=== PATIENT | male | born 1940 | race Caucasian/White ===

== ENCOUNTER 2020-08-09 15:16 | Inpatient (IN) | payer MEDICARE, BC, SELFPAY ==
[2020-08-09 15:30] VITALS: BMI 33.0
--- NOTE | 2020-08-09 15:42 | ART_ITS ---
Reason For Study: Ulcer Procedure A bilateral lower extremity continuous wave Doppler with analog waveform analysis,segmental pressures,and ankle brachial indexes without exercise. Left Segmental Pressures Left brachial= 137mmHg. Left posterior tibial artery = 183mmHg. Left dorsalis pedis artery = 61mmHg. Left digit = 92 mmHg. The left dorsalis pedis waveforms are biphasic. The left posterior tibial artery waveforms are biphasic. Right Segmental Pressures Right brachial= 144mmHg. Right posterior tibial artery = >254mmHg. Right dorsalis pedis artery = 143mmHg. Right digit = 73 mmHg. The right dorsalis pedis waveforms are triphasic. The right posterior tibial artery waveforms are triphasic. Indices The right ankle brachial index by the dorsalis pedis is 0.99. The right ankle brachial index by the posterior tibial artery is NC. The right digital-brachial index is 0.51. The left ankle brachial index by the dorsalis pedis is 0.42. The left ankle brachial index by the posterior tibial artery is 1.27. The left digital-brachial index is 0.64. Interpretation Summary Noncalculable right PT ankle-brachial index secondary to noncompressibility. Normal right DP ankle-brachial index. Triphasic right PT and DP Doppler waveforms. Based upon the above findings one would suggest mild calcific occlusive disease Abnormal right digital brachial index Normal left posterior tibial ankle-brachial index although findings suggest likely medial calcification. Abnormal left dorsalis pedis digital brachial index Biphasic left posterior tibial and dorsalis pedis Doppler waveforms consistent with moderate occlusive disease Abnormal left digital brachial index Ordering Physician: Dio Parson Referring Physician: Alcon Hodge Performed By: Lissy Lei RVT
--- NOTE | 2020-08-09 15:43 | NURSING ---
wound photo: left foot
--- NOTE | 2020-08-09 15:50 | PCM.HP.STD ---
Problem List (1) Cellulitis Status: Acute (2) Diabetes Status: Chronic Qualifiers: Diabetes mellitus type: type 2 (3) Peripheral neuropathy Status: Chronic (4) CAD (coronary artery disease) Status: Chronic (5) Obesity Status: Chronic (6) HTN (hypertension) Status: Chronic (7) HLD (hyperlipidemia) Status: Acute (8) BPH (benign prostatic hyperplasia) Status: Chronic History of Present Illness Date of Admission: 08/09/20 Chief Complaint: left foot non healing wound The patient is a 80 year old M with pmhx of DMt2, nonhealing foot wound left foot, peripheral neuropathy, HTN, HLD, BPH who presented to outside ER with a nonhealing wound on the left foot. He was being seen by a baseball sewer hand at [place] Dr. Pastor. He states he has had this for a month however this past week it became red, swollen, and started having purulent drainage. He took his temperature at home and had a fever of 100.3. He denies any inciting event or trauma. He states he cannot feel the bottoms of his feet, but his foot does have pain. He denies other wounds. [] Past Medical History Past Medical History (Chronic Problems): Chronic Problems Diabetes (Chronic) Peripheral neuropathy (Chronic) CAD (coronary artery disease) (Chronic) Obesity (Chronic) HTN (hypertension) (Chronic) BPH (benign prostatic hyperplasia) (Chronic) Allergies cetirizine [From Zyrtec] Allergy (Severe, Verified 08/09/20 15:49) Swollen lymph glands gabapentin Allergy (Severe, Verified 08/09/20 15:49) Swollen lymph glands Home Medications: Ambulatory Orders Medication Instructions Recorded Allopurinol 08/09/20 Amlodipine [Norvasc] 08/09/20 Aspirin 08/09/20 Atorvastatin Calcium 80 mg PO 08/09/20 Carvedilol [Coreg] 6.25 mg PO BID 08/09/20 Clopidogrel Bisulfate [Clopidogrel] 08/09/20 Tolterodine Tartrate [Tolterodine 08/09/20 Tartrate ER] metFORMIN HCl [Glucophage] 08/09/20 Surgical History: no surgical history Psychiatric History: No pertinent psych hx Lives: Alone Smoking Status: Current every day smoker Tobacco Use: Non-smoker Alcohol: None Drugs: None - *Family History Maternal History Items: No pertinent history Paternal History Items: No pertinent history Review of Systems Constitutional: Denies: Chills, Fever, Weight Change HEENT: Denies: Head Aches, Sinus Congestion, Sinus Drainage Cardiovascular: Denies: Chest Pain, Palpitations Respiratory: Denies: Cough, Shortness of Breath, Shortness of breath at rest, Sputum production Gastrointestinal: Denies: Abdominal Pain, Diarrhea, Nausea, Vomiting Genitourinary: Denies: Dysuria Musculoskeletal: Denies: Joint Pain, Joint Tenderness Skin: Reports: Wounds - left foot nonhealing wound. Denies: Rash Neurological: Denies: Numbness, Tingling, Focal weakness Psychiatric: Denies: Anxiety, Depression, Homicidal Ideations, Suicidal Ideations Hematologic/ Lymphatic: Denies: Easy Bruising, Easy Bleeding VTE Information - Inpt Only VTE Present on Admission: No VTE Mechan Device Prophylaxis: None VTE Pharm Prophylaxis ordered?: Yes - Physical Exam Vitals/I&O's: Weight: 217 lb 5 oz Body Mass Index (BMI) 33.0 General: Alert, Oriented x3, Cooperative HEENT: Atraumatic, PERRLA, EOMI, Normocephalic Neck: Supple, No JVD, Negative Carotid Bruits Lungs: Clear to auscultation, Normal air movement Cardiovascular: Regular rate, No murmurs Abdomen: Bowel Sounds Present, Soft, Non Tender Extremities: No edema, Capillary Refill Less than 3 Seconds Skin: Ulcer/ Wound - left 5th digit lateral wound with open area and purulent drainage, surrounding erythema warmth, swelling. no lymphangitis or tracking up the leg. Musculoskeletal: No Tenderness to Palpation of Joints or Extremities Neurological: Cranial nerves II-XII grossly intact Psych/Mental Status: Normal Affect, Appropriate Current Medications Sodium Chloride (0.9% Saline Lock 10 Ml Syringe) 10 - 40 ml IV UD PRN PRN Reason: SALINE FLUSH Assessment/Plan All Active Problems Cellulitis (Acute) HLD (hyperlipidemia) (Acute) 1. Acute cellulitis and nonhealing neuropathic wound left foot - purulent drainage sent for culture. started on zosyn. consult wound care. consult podiatry. Obtain MRI. xray done in er without osteo. 2. Dmt2 with obesity, peripheral neuropathy - hold orals, start sliding scale. energy manager consult. 3. CAD - prior stents - pt on aspirin, plavix, coreg, losartan, statin 4. HTN - continue home meds 5. HLD - statin 6. BPH - detrol 7. depression - zoloft 8. gout - allopurinol DVT ppx: lovenox DC planning: PTOT shweta. This patient was seen by Jose Guadalupe Bustillos PA-C under the supervision of Dr. Sullivan.
--- NOTE | 2020-08-09 16:37 | RAD_ITS ---
STUDY: X-RAY - LEFT FOOT CLINICAL: Male, 80 years old. Diabetic infection lateral foot. TECHNIQUE: 3 view(s) of the foot. COMPARISON: None. FINDINGS: There is a plantar calcaneal spur. Normal talus and tarsal bones. Arthrosis on the visualized subtalar, talonavicular, calcaneocuboid, tarsal and tarsometatarsal articulations. Normal metatarsi. There is degenerative arthrosis of the metatarsophalangeal joint of the hallux . Normal tibial and fibular sesamoid bones. There is degenerative arthrosis of the interphalangeal joint of the great toe. Normal phalanges of the great toe. Normal second through fifth metatarsophalangeal joints. There is Hammer toe deformity of the second through fifth toes. There is soft tissue swelling about the ankle. There is minimal soft tissue irregularity about the lateral foot adjacent to the fifth metatarsophalangeal joint. RAD/Foot min 3 Views IMPRESSION: Generative changes of the left foot. There is no fracture, dislocation or evidence of osteomyelitis. There is continued concern for osteomyelitis, bone scan or MRI is recommended. Electronically Signed: Sean Disla DO at 17:15 EST Tel [phone], Service support ,
[2020-08-09 16:40] LABS: Bedside Glucose 141 mg/dL (70-110)
--- NOTE | 2020-08-09 16:49 | MRI_ITS ---
STUDY: MRI LEFT FOREFOOT WITHOUT CONTRAST REASON FOR EXAM: Male, 80 years old. LEFT foot ulcer distal 5th metatarsal, size of a half dollar, x 3 weeks TECHNIQUE: Standardized fat and water weighted pulse sequences were obtained in all 3 orthogonal planes. COMPARISON: Right FINDINGS: There is degenerative arthrosis of the metatarsophalangeal joint of the hallux. Normal tibial and fibular sesamoids, with normal sesamoids-first metatarsal articulations. Normal interphalangeal joint of the hallux. Normal proximal and distal phalanges of the great toe. Normal medial and lateral heads of the flexor hallucis brevis tendons. Normal flexor and extensor hallucis longus tendons. Normal second through fifth metatarsophalangeal (MTP) joints. Normal interphalangeal joints of the second through fifth toes. Normal proximal, middle and distal phalanges of the second through fourth toes. There is mild marrow edema of the fifth metatarsal head and fifth proximal phalanx, series 8 images through . Normal first through fourth intermetatarsal spaces. Normal flexor and extensor tendons of the second through fifth toes. There is diffuse atrophy of the intrinsic muscles of the forefoot consistent with a peripheral neuropathy. There is lateral soft tissue swelling. MRI/Lower Ext/No Jt/w/o IMPRESSION: Edema with osteomyelitis of the fifth metatarsal and proximal phalanx. Electronically Signed: Clyde Melissa MD at 19:53 EST , Service support ,
--- NOTE | 2020-08-09 17:50 | PCM.CONS.GEN ---
Reason for Consult Date of Consultation: 08/09/20 Reason for Consultation: Left foot ulcer infection History of Present Illness: The patient is a 80 year old gentleman with history of multiple medical problems including diabetes with neuropathy presented today from [facility] ER for left foot infection. Patient's daughter present in room at time of this visit. Patient relates he follows with mobile engineer in [place] for regular diabetic foot care, however he developed an ulceration several weeks ago. Has been doing local wound care, however over the past 3 days the ulcer has worsened, is draining and foot is red and swollen. Patient has no pain, but he has peripheral neuropathy. Patient relates he has had his circulation checked in the past and relates he was told it was good circulation. Patient is resting comfortably in bed. Has had left foot xrays today which were negative for gas or osteomyelitis. Per ER report from today WBC normal. Patient's daughter relates he had a temp of 100.3F. Patient relates he was on oral antibiotic Augmentin at home, has been started on Zosyn today, also received dose of Rocephin in ER. Patient relates recent ha1c was 7.0 Past Medical History Past Medical History (Chronic Problems): Chronic Problems Diabetes (Chronic) Peripheral neuropathy (Chronic) CAD (coronary artery disease) (Chronic) Obesity (Chronic) HTN (hypertension) (Chronic) BPH (benign prostatic hyperplasia) (Chronic) Allergies cetirizine [From Zyrtec] Allergy (Severe, Verified 08/09/20 15:49) Swollen lymph glands gabapentin Allergy (Severe, Verified 08/09/20 15:49) Swollen lymph glands Home Medications: Ambulatory Orders Medication Instructions Recorded Allopurinol 100 mg PO DAILY 08/09/20 Amlodipine [Norvasc] 5 mg PO DAILY 08/09/20 Aspirin 81 mg PO DAILY 08/09/20 Atorvastatin Calcium 80 mg PO DAILY 08/09/20 Carvedilol [Coreg] 6.25 mg PO BID 08/09/20 Clopidogrel Bisulfate [Clopidogrel] 75 mg PO DAILY 08/09/20 Losartan Potassium 100 mg PO DAILY 08/09/20 Tolterodine Tartrate [Tolterodine 4 mg PO DAILY 08/09/20 Tartrate ER] metFORMIN HCl [Glucophage] 850 mg PO DAILY 08/09/20 Surgical History: no surgical history Psychiatric History: No pertinent psych hx Lives: Alone Smoking Status: Current every day smoker Tobacco Use: Non-smoker Alcohol: None Drugs: None - *Family History Maternal History Items: No pertinent history Paternal History Items: No pertinent history Review of Systems Constitutional: Reports: Fever - had 100.3 temp at home, currently no fever. Denies: Chills Gastrointestinal: Denies: Nausea, Vomiting Musculoskeletal: Reports: - - hx of torn tendon in left foot Skin: Reports: Wounds Patient Problems: Active and Suspected Problems Cellulitis (Acute) HLD (hyperlipidemia) (Acute) - Physical Exam Vitals/I&O's: Oxygen Delivery Method Room Air Weight: 98.6 kg Body Mass Index (BMI) 33.0 General: Alert, Oriented x3, Cooperative, No apparent distress Extremities: No cyanosis, Capillary Refill Less than 3 Seconds, No Calf Tenderness, - - Ulceration of bella size to the lateral 5th MTPJ left foot, there is purulent drainage, there is localized necrotic tissue around the wound site, there is cellulitis to the dorsal foot, no maloder, no streaking, no crepitus present. No other ulcerations bilateral foot ulcer or infection bilateral. Musculoskeletal: No Tenderness to Palpation of Joints or Extremities - to the foot or ankle bilateral Neurological: - - Decreased sensation to the foot c/w peripheral neuropathy bilateral, no pain to the ulcer site left foot Psych/Mental Status: Appropriate, Alert and oriented to time, place, person, mood and affect Laboratory Results 08/09/20 15:45: S.aureus Protein A PCR Pending, MRSA (PCR) Pending 08/09/20 16:11: POC Glucose 141 H Current Medications Acetaminophen (Acetaminophen 325 Mg Tablet) 650 mg PO Q6H PRN PRN PRN Reason: Pain Score 1-10/Temp > 100.7 F Allopurinol (Allopurinol 100 Mg Tablet) 100 mg PO DAILY@0800 [facility] Amlodipine Besylate (Amlodipine 5 Mg Tablet) 5 mg PO DAILY [facility] Aspirin (Aspirin 81 Mg Tab.Chew) 81 mg PO DAILY@0800 [facility] Carvedilol (Carvedilol 6.25 Mg Tablet) 6.25 mg PO BID [facility] Clopidogrel Bisulfate (Clopidogrel Bisulfate 75 Mg Tablet) 75 mg PO QPM [facility] Enoxaparin Sodium (Enoxaparin 40 Mg/0.4 Ml Syringe) 40 mg SC DAILY [facility] Piperacillin Sod/Tazobactam (Sod 3.375 gm/ Sodium Chloride) 50 mls @ 12.5 mls/hr IV Q8 [facility] Insulin Human Lispro (Insulin Lispro 100 Unit/Ml Insuln.Pen) 0 unit SC ACHS [facility]; Protocol Metformin HCl (Metformin Hcl 850 Mg Tablet) 850 mg PO BIDCM [facility] Ondansetron HCl (Ondansetron 4 Mg/2 Ml Vial) 4 mg IV Q8H PRN PRN PRN Reason: NAUSEA/VOMITING Sodium Chloride (0.9% Saline Lock 10 Ml Syringe) 10 - 40 ml IV UD PRN PRN Reason: SALINE FLUSH Temazepam (Temazepam 15 Mg Capsule) 15 mg PO QHS PRN PRN PRN Reason: INSOMNIA Tolterodine Tartrate (Tolterodine Tartrate 4 Mg Cap.Sa) 4 mg PO QPM [facility] Assessment/Plan All Active Problems Cellulitis (Acute) HLD (hyperlipidemia) (Acute) Ulceration probes close to bone, left foot Cellulitis left foot with possible osteomyelitis 5th metatarsal, left Diabetes with peripheral neuropathy Reviewed diagnostic data. Ordered new left foot xrays - no gas or clear evidence of osteomyelitis. MRI ordered for further evaluation due to concern of osteomyelitis/deep infection. We discussed debridement of the infected tissue from the left foot. Reviewed rationale of this, as well as possible benefits vs risks. Patient agrees to proceed forward due to infection. We will get MRI as noted above and plan for OR debridement - will coordinate with OR for time. Patient NPO after 1AM. LEAS - noninvasive lower extremity arterial studies were ordered. Patient has been started on board spectrum antibiotics - IV Zosyn at this time. Culture were obtained today and are pending. MRSA PCR pending as well. Podiatry will continue to follow closely. Thank you for consultation. Discussed with Dr. Sullivan.
[2020-08-09 18:20] LABS: M R Staph aureus DNA By PCR Negative (Negative); Probe Check PASS; Staph aureus DNA By PCR POSITIVE (Negative)
[2020-08-09] MEDS: metFORMIN HCl 850 MG Tablet PO (18:29)
[2020-08-09] MEDS: 0.9% Saline Lock 10 ML Syringe IV ×3 (19:50→21:55)
[2020-08-09] MEDS: Acetaminophen 325 MG Tablet 650 MG PO (19:54)
[2020-08-09 20:09] VITALS: BP 145/59; PULSE 77; RESP 17; TEMP 36.6; O2SAT 97
[2020-08-09] MEDS: Clopidogrel Bisulfate 75 MG Tablet PO (21:55)
[2020-08-09] MEDS: Carvedilol 6.25 MG Tablet PO (21:55)
[2020-08-09] MEDS: Atorvastatin Calcium 80 MG Tablet PO (21:56)
[2020-08-09] MEDS: Tolterodine Tartrate 4 MG CAP.SA PO (21:56)
[2020-08-09] MEDS: Insulin Lispro 100 UNIT/ML INSULN.PEN SC (22:02)
[2020-08-09 22:05] LABS: Bedside Glucose 150 mg/dL (70-110)
[2020-08-09] MEDS: Temazepam 15 MG Capsule PO (23:23)
[2020-08-10] VITALS (12 sets, daily range): BP systolic 113–175; BP diastolic 63–82; PULSE 64–78; RESP 16–17; TEMP 36.3–37; O2SAT 95–100; BMI 33.0
--- NOTE | 2020-08-10 | BON_PTH ---
PATIENT: RYLAND AMADOR LOC: MS3 U#:[id number] AGE/SX: 80/M ROOM: [facility] RE08/09/[address]: Dr. Milton Cardona MD : [id number] BED: 1 DIS: 08/12/2020 SPEC #: [id number] RECD: 08/10/20 14:11 STATUS: BRIANA REQ #: [id number] BRAYDEN: 08/10/20 00:[address]: Dio Parson DEPT: SURGICAL PATHOLOGY RECD BY: Oscar Hobbs ENTERED: 08/11/20 07:50 SP TYPE: Bone OTHR DR: MD Dr. Dio Sahu, DPM Dr. John Sullivan, DO Dr. Milton Cardona MD Tissues: A - Bone of foot, NOS B - Bone of foot, NOS C - Toe, NOS Procedures: Decalcification bone/plaque Surgery Specimen Level IV Comments: @ Ordering doctor for DEC edited from to DR.JWUNNI Gomez by HANNAH at 08/11/20 @ Ordering doctor for SUIV edited from to @ by HANNAH at 08/11/20 0937 @ Submitting doctor edited from to DR.JWUNNI Gomez by HANNAH at 08/11/2037 HEADER OPERATION: Foot debridement, resection fifth metatarsal PRE-OP DIAGNOSIS: Cellulitis left foot with possible osteomyelitis fifth metatarsal, left TISSUE SUBMITTED: A - Left foot ulcer and fifth metatarsal head, B - Left fifth metatarsal clearance fragment, C - Left fifth toe MICROSCOPIC DIAGNOSIS A. Left foot, fifth metatarsal head, excision: Skin and soft tissue with ulceration and associated acute and chronic inflammation and granulation. Bone with acute osteomyelitis. B. Left foot, fifth metatarsal clearance fragment, biopsy: Fragments of bone with reparative and reactive change. No evidence of osteomyelitis. C. Left fifth toe, biopsy: Osseocartilaginous fragment with no pathologic change. Benign fibrofatty and collagenous tissue. AM:renetta 08/15/2020 MICROSCOPIC DESCRIPTION Slides are reviewed. GROSS DESCRIPTION A - Received in fixative is one container labeled with the patient's name and designated left foot ulcer and fifth metatarsal head. The specimen consists of multiple irregular fragments of light meza soft tissue that in aggregate measure 4 x 3.5 x 1 cm. Also present is a fragment of bone measuring 2 x 1.5 x 1.5 cm. Apron Operator sections are submitted in two cassettes as follows: 1 - soft tissue, 2 - bone after decalcification. B - Received in fixative is one container labeled with the patient's name and designated left fifth metatarsal clearance fragment. The specimen consists of two irregular fragments of meza bone measuring in aggregate 0.7 x 0.5 x 0.2 cm. The specimen is totally submitted in one cassette after decalcification. C - Received in fixative is one container labeled with the patient's name and designated left fifth toe clearance fragment. The specimen consists of two irregular fragments of meza bone measuring in aggregate 1 x 1 x 0.2 cm. The specimen is totally submitted in one cassette after decalcification. / AM:renetta 08/11/20 TC:2 CPT: 17952 x3, 96519 x3
--- NOTE | 2020-08-10 05:00 | EKG12_ITS ---
Test Reason : PRE-OP Blood Pressure : / mmHG Vent. Rate : 073 BPM Atrial Rate : 073 BPM P-R Int : 272 ms QRS Dur : 112 ms QT Int : 406 ms P-R-T Axes : 079 -28 033 degrees QTc Int : 447 ms Sinus rhythm with 1st degree A-V block Septal infarct , age undetermined Abnormal ECG No previous ECGs available Confirmed by MALORIE GOETZ, FRANK ([id number]), associate entertainment editor LISA JULIAN ([id number]) on 08/15/2020 12:24:13 PM Referred By: YARELIS Confirmed By:SAMUEL ESPANA MD
[2020-08-10] MEDS: 0.9% Saline Lock 10 ML Syringe IV (06:35)
[2020-08-10] MEDS: Insulin Lispro 100 UNIT/ML INSULN.PEN SC ×2 (06:44→21:21)
[2020-08-10 06:55] LABS: Absolute Lymphocyte Count 1.89 X10^3/uL (0.83-4.51); Absolute Neutrophil Count 4.2 X10^3/uL (2.0-7.7); Basophil# 0.06 X10^3/uL; Basophil% 0.8 % (0-1); Eosinophil# 0.43 X10^3/uL; Eosinophils% 5.9 % (0-5); Hematocrit 36.3 % (40-54); Hemoglobin 11.7 g/dL (13.0-16.5); Lymphocyte # 1.89 X10^3/ul (4.0); Lymphocyte % 25.9 % (19-41); Mean Corp Hgb Conc 32.2 g/dL (32-36); Mean Corpuscular Hgb 28.5 pg (27.0-32.0); Mean Corpuscular Volume 88.5 fL (80-94); Mean Platelet Vol. 10.9 fl (6.2-12.0); Monocyte% 9.6 % (0-10); NRBC Flagged by Analyzer 0 % (0-5); Neutrophil # 4.17 X10^3/uL (2.7-7.7); Neutrophil % 57.1 % (47-70); Platelet Count 230 K/mm3 (150-450); RBC Distribution Width CV 13.9 % (11.6-14.6); RBC Distribution Width SD 45.3 fl (35.1-43.9); White Blood Count 7.3 K/mm3 (4.4-11.0)
[2020-08-10 07:01] LABS: Bedside Glucose 166 mg/dL (70-110)
[2020-08-10 07:20] LABS: Anion Gap 5 (5-15); BUN 22 mg/dL (7-18); BUN/Creat Ratio 19.6 RATIO (10-20); Calcium,Total 8.4 mg/dL (8.5-10.1); Chloride 110 mmol/L (98-107); Creatinine, Serum 1.12 mg/dL (0.70-1.30); EST Glomerular Filtration Rate 67 mL/min (>60); Est Glom Filt Rate - Afr Amer 81 mL/min (>60); Estimated Creatinine Clearance 50.89 ml/min; Glucose 155 mg/dL (74-106); Potassium 3.6 mmol/L (3.5-5.1); Sodium Level 140 mmol/L (136-145)
[2020-08-10] MEDS: Carvedilol 6.25 MG Tablet PO ×2 (07:31→21:16)
[2020-08-10] MEDS: amLODIPine 5 MG Tablet PO ×2 (07:31→09:24)
[2020-08-10] MEDS: Losartan Potassium 100 MG Tablet PO (07:31)
--- NOTE | 2020-08-10 08:28 | PN_ITS ---
Patient Problems: Active and Suspected Problems Cellulitis (Acute) HLD (hyperlipidemia) (Acute) Vitals/I&O's: Vital Signs Temp Pulse Resp BP Pulse Ox 98.6 F 74 16 168/68 H 95 08/10/20 07:27 08/10/20 07:27 08/10/20 07:27 08/10/20 07:27 08/10/20 07:27 Oxygen Delivery Method Room Air Weight: 217 lb 6.012 oz Body Mass Index (BMI) 33.0 Intake and Output for Last 24 Hours 08/08/20 08/09/20 08/10/20 23:59 23:59 23:59 Intake Total 1150 / 1150 50 / 50 Balance 1150 / 1150 50 / 50 Microbiology Past 72 Hours 08/09/20 20:06 Mucosa - Nose SARS-CoV-2 Antigen (Rapid) - Final Laboratory Results 08/09/20 15:45: S.aureus Protein A PCR POSITIVE H, MRSA (PCR) Negative 08/09/20 16:11: POC Glucose 141 H 08/09/20 21:53: POC Glucose 150 H 08/10/20 06:41: WBC 7.3, RBC 4.10 L, Hgb 11.7 L, Hct 36.3 L, MCV 88.5, MCH 28.5, MCHC 32.2, RDW Std Deviation 45.3 H, RDW Coeff of Betsy 13.9, Plt Count 230, MPV 10.9, Immature Gran % (Auto) 0.700, Neut % (Auto) 57.1, Lymph % (Auto) 25.9, Larue % (Auto) 9.6, Eos % (Auto) 5.9 H, Baso % (Auto) 0.8, Absolute Neuts (auto) 4.2, Absolute Lymphs (auto) 1.89, Nucleated RBC % 0 08/10/20 06:41: Sodium 140, Potassium 3.6, Chloride 110 H, Carbon Dioxide 25.0, Anion Gap 5, BUN 22 H, Creatinine 1.12, Estim Creat Clear Calc 50.89, Est GFR (MDRD) Af Amer 81, Est GFR (MDRD) Non-Af 67, BUN/Creatinine Ratio 19.6, Glucose 155 H, Calcium 8.4 L 08/10/20 06:41: Hemoglobin A1c Pending 08/10/20 06:42: POC Glucose 166 H Current Medications Acetaminophen (Acetaminophen 325 Mg Tablet) 650 mg PO Q6H PRN PRN PRN Reason: Pain Score 1-10/Temp > 100.7 F Last Admin: 08/09/20 19:54 Dose: 650 mg Documented by: Allopurinol (Allopurinol 100 Mg Tablet) 100 mg PO DAILY@0800 [facility] Last Admin: 08/10/20 07:32 Dose: Not Given Documented by: Amlodipine Besylate (Amlodipine 5 Mg Tablet) 5 mg PO DAILY [facility] Last Admin: 08/10/20 07:31 Dose: 5 mg Documented by: Aspirin (Aspirin 81 Mg Tab.Chew) 81 mg PO DAILY@0800 [facility] Last Admin: 08/10/20 07:30 Dose: Not Given Documented by: Atorvastatin Calcium (Atorvastatin Calcium 80 Mg Tablet) 80 mg PO QHS [facility] Last Admin: 08/09/20 21:56 Dose: 80 mg Documented by: Carvedilol (Carvedilol 6.25 Mg Tablet) 6.25 mg PO BID [facility] Last Admin: 08/10/20 07:31 Dose: 6.25 mg Documented by: Clopidogrel Bisulfate (Clopidogrel Bisulfate 75 Mg Tablet) 75 mg PO QPM [facility] Last Admin: 08/09/20 21:55 Dose: 75 mg Documented by: Enoxaparin Sodium (Enoxaparin 40 Mg/0.4 Ml Syringe) 40 mg SC DAILY [facility] Last Admin: 08/10/20 07:30 Dose: Not Given Documented by: Piperacillin Sod/Tazobactam (Sod 3.375 gm/ Sodium Chloride) 50 mls @ 12.5 mls/hr IV Q8 [facility] Last Admin: 08/10/20 06:35 Dose: 12.5 mls/hr Documented by: Insulin Human Lispro (Insulin Lispro 100 Unit/Ml Insuln.Pen) 0 unit SC ACHS [facility]; Protocol Last Admin: 08/10/20 06:44 Dose: 2 u Documented by: Losartan Potassium (Losartan Potassium 100 Mg Tablet) 100 mg PO DAILY [facility] Last Admin: 08/10/20 07:31 Dose: 100 mg Documented by: Metformin HCl (Metformin Hcl 850 Mg Tablet) 850 mg PO BIDCM [facility] Last Admin: 08/10/20 07:32 Dose: Not Given Documented by: Ondansetron HCl (Ondansetron 4 Mg/2 Ml Vial) 4 mg IV Q8H PRN PRN PRN Reason: NAUSEA/VOMITING Sodium Chloride (0.9% Saline Lock 10 Ml Syringe) 10 - 40 ml IV UD PRN PRN Reason: SALINE FLUSH Last Admin: 08/10/20 06:35 Dose: 10 ml Documented by: Temazepam (Temazepam 15 Mg Capsule) 15 mg PO QHS PRN PRN PRN Reason: INSOMNIA Last Admin: 08/09/20 23:23 Dose: 15 mg Documented by: Tolterodine Tartrate (Tolterodine Tartrate 4 Mg Cap.Sa) 4 mg PO QPM [facility] Last Admin: 08/09/20 21:56 Dose: 4 mg Documented by: STROKE Vital Signs/Narrative: Vital Signs Temp Pulse Resp BP Pulse Ox 08/10/20 07:27 98.6 F 74 16 168/68 H 95 Medical Necessity - Tobacco Use Smoking Status: Current every day smoker Tobacco Use: Non-smoker Assessment/Plan All Active Problems Cellulitis (Acute) HLD (hyperlipidemia) (Acute) 1. Acute cellulitis and nonhealing neuropathic wound left foot - purulent drainage sent for culture. started on zosyn. consult wound care. consult podiatry. Obtain MRI. xray done in er without osteo. 2. Dmt2 with obesity, peripheral neuropathy - hold orals, start sliding scale. plaster patternmaker consult. 3. CAD - prior stents - pt on aspirin, plavix, coreg, losartan, statin 4. HTN - continue home meds 5. HLD - statin 6. BPH - detrol 7. depression - zoloft 8. gout - allopurinol DVT ppx: lovenox DC planning: PTOT evals. Clinical Impression(s) from Imaging Studies Foot X-Ray 08/09/20 16:37 IMPRESSION: Generative changes of the left foot. There is no fracture, dislocation or evidence of osteomyelitis. There is continued concern for osteomyelitis, bone scan or MRI is recommended. Lower Extremity MRI 08/09/20 16:49 IMPRESSION: Edema with osteomyelitis of the fifth metatarsal and proximal phalanx. Electronically Signed: Clyde Melissa MD at 19:53 EST , Service support , Microbiology Past 72 Hours 08/09/20 20:06 Mucosa - Nose SARS-CoV-2 Antigen (Rapid) - Final Laboratory Results 08/09/20 15:45: S.aureus Protein A PCR POSITIVE H, MRSA (PCR) Negative 08/09/20 16:11: POC Glucose 141 H 08/09/20 21:53: POC Glucose 150 H 08/10/20 06:41: WBC 7.3, RBC 4.10 L, Hgb 11.7 L, Hct 36.3 L, MCV 88.5, MCH 28.5, MCHC 32.2, RDW Std Deviation 45.3 H, RDW Coeff of Betsy 13.9, Plt Count 230, MPV 10.9, Immature Gran % (Auto) 0.700, Neut % (Auto) 57.1, Lymph % (Auto) 25.9, Larue % (Auto) 9.6, Eos % (Auto) 5.9 H, Baso % (Auto) 0.8, Absolute Neuts (auto) 4.2, Absolute Lymphs (auto) 1.89, Nucleated RBC % 0 08/10/20 06:41: Sodium 140, Potassium 3.6, Chloride 110 H, Carbon Dioxide 25.0, Anion Gap 5, BUN 22 H, Creatinine 1.12, Estim Creat Clear Calc 50.89, Est GFR (MDRD) Af Amer 81, Est GFR (MDRD) Non-Af 67, BUN/Creatinine Ratio 19.6, Glucose 155 H, Calcium 8.4 L 08/10/20 06:41: Hemoglobin A1c Pending 08/10/20 06:42: POC Glucose 166 H
--- NOTE | 2020-08-10 08:43 | NURSING ---
Pt scheduled fro surgery today with Dr Parson. extrusion press supervisor time around 1115 am. dressing left in place at this time. will follow post op as needed.
[2020-08-10 09:11] LABS: Hemoglobin A1c 7.2 % (3.8-5.6)
--- NOTE | 2020-08-10 10:40 | CASEMGMT ---
RN CM Face to Face with patient for initial transition planning/care coordination assessment. RN CM introduced self and role at [facility]. Patient lying in bed, alert and oriented, daughter at bedside. Patient willing to participate in assessment and is able to answer all questions appropriately. Care providers, pharmacy, and demographics verified. Patient wishes to discharge home, discussed need for possible HHC vs SNF pending course of treatment. Patient states he has no further needs or concerns at this time. CM to follow for discharge planning needs that may arise. PCP: Ayesha Specialists: major assembly inspector, cannot recall name [facility]erred [facility]acy: [facility] Insurance: Monica ARAUJO Prescription Benefit: yes Living Will/HPOA: yes, daughter Mariel Sims LNOK: daughter Living Arrangements: Patient lives with daughter in 1 story home with 1 step to enter the home. Patient states he was independent at home. Transportation: daughter DME/HHC: Patient states he has raised toilet, cane, walker, rollator, wheelchair, and grab bars at home. Patient denies previous HHC. Lien has previously been to [facility]. Disposition Plan: HHC vs SNF pending course of treatment and progress with therapy. Lissy TATE, RN, CM
[2020-08-10 11:20] LABS: Bedside Glucose 151 mg/dL (70-110)
--- NOTE | 2020-08-10 11:35 | PN_ITS ---
<Jose Guadalupe Bustillos - Last Filed: 08/10/20 11:35> Patient Problems: Active and Suspected Problems Cellulitis (Acute) HLD (hyperlipidemia) (Acute) Reason for Visit: left foot osteo Subjective: Pt resting comfortably in bed upright on side of bed NAD. He states he has no pain at all today. He has had no fever or chills. No cough/sob/fever/chills/nausea/diarrhea. He is doing well today. He is planning to go to the OR this afternoon. He is worried that he will end up needing an amputation. Vitals/I&O's: Vital Signs Temp Pulse Resp BP Pulse Ox 97.9 F 72 16 144/68 H 96 08/10/20 11:06 08/10/20 11:06 08/10/20 11:06 08/10/20 11:06 08/10/20 11:06 Oxygen Delivery Method Room Air Weight: 217 lb 6.012 oz Body Mass Index (BMI) 33.0 Intake and Output for Last 24 Hours 08/08/20 08/09/20 08/10/20 23:59 23:59 23:59 Intake Total 1150 / 1150 100 / 100 Balance 1150 / 1150 100 / 100 General: Alert, Oriented x3, Cooperative HEENT: Atraumatic, PERRLA, EOMI, Normocephalic Neck: Supple, No JVD, Negative Carotid Bruits Lungs: Clear to auscultation, Normal air movement Cardiovascular: Regular rate, No murmurs Abdomen: Bowel Sounds Present, Soft, Non Tender Extremities: No edema, Capillary Refill Less than 3 Seconds Skin: No rashes, No breakdown Musculoskeletal: No Tenderness to Palpation of Joints or Extremities Neurological: Cranial nerves II-XII grossly intact Psych/Mental Status: Normal Affect, Appropriate, Alert and oriented to time, place, person, mood and affect Microbiology Past 72 Hours 08/09/20 15:46 Wound Abcess - Aerobic & Anaerobic Swabs Gram Stain - Final 08/09/20 20:06 Mucosa - Nose SARS-CoV-2 Antigen (Rapid) - Final Laboratory Results 08/09/20 15:45: S.aureus Protein A PCR POSITIVE H, MRSA (PCR) Negative 08/09/20 16:11: POC Glucose 141 H 08/09/20 21:53: POC Glucose 150 H 08/10/20 06:41: WBC 7.3, RBC 4.10 L, Hgb 11.7 L, Hct 36.3 L, MCV 88.5, MCH 28.5, MCHC 32.2, RDW Std Deviation 45.3 H, RDW Coeff of Betsy 13.9, Plt Count 230, MPV 10.9, Immature Gran % (Auto) 0.700, Neut % (Auto) 57.1, Lymph % (Auto) 25.9, O'Brien % (Auto) 9.6, Eos % (Auto) 5.9 H, Baso % (Auto) 0.8, Absolute Neuts (auto) 4.2, Absolute Lymphs (auto) 1.89, Nucleated RBC % 0 08/10/20 06:41: Sodium 140, Potassium 3.6, Chloride 110 H, Carbon Dioxide 25.0, Anion Gap 5, BUN 22 H, Creatinine 1.12, Estim Creat Clear Calc 50.89, Est GFR (MDRD) Af Amer 81, Est GFR (MDRD) Non-Af 67, BUN/Creatinine Ratio 19.6, Glucose 155 H, Calcium 8.4 L 08/10/20 06:41: Hemoglobin A1c 7.2 H 08/10/20 06:42: POC Glucose 166 H 08/10/20 11:03: POC Glucose 151 H Current Medications Acetaminophen (Acetaminophen 325 Mg Tablet) 650 mg PO Q6H PRN PRN PRN Reason: Pain Score 1-10/Temp > 100.7 F Last Admin: 08/09/20 19:54 Dose: 650 mg Documented by: Allopurinol (Allopurinol 100 Mg Tablet) 100 mg PO DAILY@0800 [facility] Last Admin: 08/10/20 07:32 Dose: Not Given Documented by: Amlodipine Besylate (Amlodipine 10 Mg Tablet) 10 mg PO DAILY [facility] Aspirin (Aspirin 81 Mg Tab.Chew) 81 mg PO DAILY@0800 [facility] Last Admin: 08/10/20 07:30 Dose: Not Given Documented by: Atorvastatin Calcium (Atorvastatin Calcium 80 Mg Tablet) 80 mg PO QHS [facility] Last Admin: 08/09/20 21:56 Dose: 80 mg Documented by: Carvedilol (Carvedilol 6.25 Mg Tablet) 6.25 mg PO BID [facility] Last Admin: 08/10/20 07:31 Dose: 6.25 mg Documented by: Clopidogrel Bisulfate (Clopidogrel Bisulfate 75 Mg Tablet) 75 mg PO QPM [facility] Last Admin: 08/09/20 21:55 Dose: 75 mg Documented by: Enoxaparin Sodium (Enoxaparin 40 Mg/0.4 Ml Syringe) 40 mg SC DAILY [facility] Last Admin: 08/10/20 07:30 Dose: Not Given Documented by: Piperacillin Sod/Tazobactam (Sod 3.375 gm/ Sodium Chloride) 50 mls @ 12.5 mls/hr IV Q8 [facility] Last Infusion: 08/10/20 10:36 Dose: Infused Documented by: Insulin Human Lispro (Insulin Lispro 100 Unit/Ml Insuln.Pen) 0 unit SC ACHS [facility]; Protocol Last Admin: 08/10/20 11:30 Dose: Not Given Documented by: Losartan Potassium (Losartan Potassium 100 Mg Tablet) 100 mg PO DAILY [facility] Last Admin: 08/10/20 07:31 Dose: 100 mg Documented by: Metformin HCl (Metformin Hcl 850 Mg Tablet) 850 mg PO BIDCM [facility] Last Admin: 08/10/20 07:32 Dose: Not Given Documented by: Ondansetron HCl (Ondansetron 4 Mg/2 Ml Vial) 4 mg IV Q8H PRN PRN PRN Reason: NAUSEA/VOMITING Sodium Chloride (0.9% Saline Lock 10 Ml Syringe) 10 - 40 ml IV UD PRN PRN Reason: SALINE FLUSH Last Admin: 08/10/20 06:35 Dose: 10 ml Documented by: Temazepam (Temazepam 15 Mg Capsule) 15 mg PO QHS PRN PRN PRN Reason: INSOMNIA Last Admin: 08/09/20 23:23 Dose: 15 mg Documented by: Tolterodine Tartrate (Tolterodine Tartrate 4 Mg Cap.Sa) 4 mg PO QPM [facility] Last Admin: 08/09/20 21:56 Dose: 4 mg Documented by: STROKE Vital Signs/Narrative: Vital Signs Temp Pulse Resp BP Pulse Ox 08/10/20 11:06 97.9 F 72 16 144/68 H 96 Medical Necessity - Tobacco Use Smoking Status: Current every day smoker Tobacco Use: Non-smoker Assessment/Plan All Active Problems Cellulitis (Acute) HLD (hyperlipidemia) (Acute) 1. Acute cellulitis and osteomyelitis of the left foot - Dr. Parson consulted. Pt to OR today. Culture prelim shows MSSA. Continue zosyn. Follow surgical cultures. consult ID post op. MRI showed osteo. No fever/leukocytosis. Arterial study pending. 2. Dmt2 with obesity, peripheral neuropathy - hold orals,continue sliding scale. industrial relations counselor consult. A1C 7.2. 3. CAD - prior stents - pt on aspirin, plavix, coreg, losartan, statin 4. HTN - continue home meds 5. HLD - statin 6. BPH - detrol 7. depression - zoloft 8. gout - allopurinol DVT ppx: lovenox DC planning: PTOT evals. This patient was seen by Jose Guadalupe Bustillos PA-C under the supervision of Dr. Cardona <Milton Cardona - Last Filed: 08/10/20 14:01> Reason for Visit: Follow-up for left foot osteomyelitis Subjective: Seen and examined. Patient has a spontaneous slow growing abscess on the left metatarsal head. MRI positive of osteomyelitis. Heart rate and blood pressure are normal. Patient being seen by sewer and drain technician. Physical exam General: Alert, Oriented x3, Cooperative HEENT: Atraumatic, PERRLA, EOMI, Normocephalic Oral: No Gingival or Mucosal Lesions/ Ulcerations Neck: Supple, No JVD, Negative Carotid Bruits Lungs: Air entry diminished in bilateral lung bases. No crepitation/rhonchi Cardiovascular: Regular rate, Regular Rhythm, Normal S1, Normal S2, No murmurs Abdomen: Bowel Sounds Present, Soft, Non Tender, Non-Distended : No renal angle tenderness. No suprapubic tenderness. Extremities: Mild left ankle edema, Capillary Refill Less than 3 Seconds Skin: Ulcer with purulent drainage along left fifth metatarsal, lateral margin. Surrounding cellulitis around ankle region wound photo reviewed. Musculoskeletal: No Tenderness to Palpation of Joints or Extremities Neurological: Cranial nerves II-XII grossly intact, Deep Tendon Reflexes 2+/4 and Symmetrical, Neuro grossly intact Psych/Mental Status: Normal Affect, Appropriate. Vitals/I&O's: Vital Signs Temp Pulse Resp BP Pulse Ox 97.9 F 72 16 144/68 H 96 08/10/20 11:06 08/10/20 11:06 08/10/20 11:06 08/10/20 11:06 08/10/20 11:06 Oxygen Delivery Method Room Air Weight: 217 lb 6.012 oz Body Mass Index (BMI) 33.0 Intake and Output for Last 24 Hours 08/08/20 08/09/20 08/10/20 23:59 23:59 23:59 Intake Total 1150 / 1150 100 / 100 Balance 1150 / 1150 100 / 100 Microbiology Past 72 Hours 08/09/20 15:46 Wound Abcess - Aerobic & Anaerobic Swabs Gram Stain - Final 08/09/20 20:06 Mucosa - Nose SARS-CoV-2 Antigen (Rapid) - Final Laboratory Results 08/09/20 15:45: S.aureus Protein A PCR POSITIVE H, MRSA (PCR) Negative 08/09/20 16:11: POC Glucose 141 H 08/09/20 21:53: POC Glucose 150 H 08/10/20 06:41: WBC 7.3, RBC 4.10 L, Hgb 11.7 L, Hct 36.3 L, MCV 88.5, MCH 28.5, MCHC 32.2, RDW Std Deviation 45.3 H, RDW Coeff of Betsy 13.9, Plt Count 230, MPV 10.9, Immature Gran % (Auto) 0.700, Neut % (Auto) 57.1, Lymph % (Auto) 25.9, O'Brien % (Auto) 9.6, Eos % (Auto) 5.9 H, Baso % (Auto) 0.8, Absolute Neuts (auto) 4.2, Absolute Lymphs (auto) 1.89, Nucleated RBC % 0 08/10/20 06:41: Sodium 140, Potassium 3.6, Chloride 110 H, Carbon Dioxide 25.0, Anion Gap 5, BUN 22 H, Creatinine 1.12, Estim Creat Clear Calc 50.89, Est GFR (MDRD) Af Amer 81, Est GFR (MDRD) Non-Af 67, BUN/Creatinine Ratio 19.6, Glucose 155 H, Calcium 8.4 L 08/10/20 06:41: Hemoglobin A1c 7.2 H 08/10/20 06:42: POC Glucose 166 H 08/10/20 11:03: POC Glucose 151 H Current Medications Acetaminophen (Acetaminophen 325 Mg Tablet) 650 mg PO Q6H PRN PRN PRN Reason: Pain Score 1-10/Temp > 100.7 F Last Admin: 08/09/20 19:54 Dose: 650 mg Documented by: Allopurinol (Allopurinol 100 Mg Tablet) 100 mg PO DAILY@0800 [facility] Last Admin: 08/10/20 07:32 Dose: Not Given Documented by: Amlodipine Besylate (Amlodipine 10 Mg Tablet) 10 mg PO DAILY [facility] Aspirin (Aspirin 81 Mg Tab.Chew) 81 mg PO DAILY@0800 [facility] Last Admin: 08/10/20 07:30 Dose: Not Given Documented by: Atorvastatin Calcium (Atorvastatin Calcium 80 Mg Tablet) 80 mg PO QHS [facility] Last Admin: 08/09/20 21:56 Dose: 80 mg Documented by: Carvedilol (Carvedilol 6.25 Mg Tablet) 6.25 mg PO BID [facility] Last Admin: 08/10/20 07:31 Dose: 6.25 mg Documented by: Clopidogrel Bisulfate (Clopidogrel Bisulfate 75 Mg Tablet) 75 mg PO QPM [facility] Last Admin: 08/09/20 21:55 Dose: 75 mg Documented by: Enoxaparin Sodium (Enoxaparin 40 Mg/0.4 Ml Syringe) 40 mg SC DAILY [facility] Last Admin: 08/10/20 07:30 Dose: Not Given Documented by: Piperacillin Sod/Tazobactam (Sod 3.375 gm/ Sodium Chloride) 50 mls @ 12.5 mls/hr IV Q8 [facility] Last Infusion: 08/10/20 10:36 Dose: Infused Documented by: Insulin Human Lispro (Insulin Lispro 100 Unit/Ml Insuln.Pen) 0 unit SC [facility]; Protocol Last Admin: 08/10/20 11:30 Dose: Not Given Documented by: Losartan Potassium (Losartan Potassium 100 Mg Tablet) 100 mg PO DAILY [facility] Last Admin: 08/10/20 07:31 Dose: 100 mg Documented by: Ondansetron HCl (Ondansetron 4 Mg/2 Ml Vial) 4 mg IV Q8H PRN PRN PRN Reason: NAUSEA/VOMITING Sodium Chloride (0.9% Saline Lock 10 Ml Syringe) 10 - 40 ml IV UD PRN PRN Reason: SALINE FLUSH Last Admin: 08/10/20 06:35 Dose: 10 ml Documented by: Temazepam (Temazepam 15 Mg Capsule) 15 mg PO QHS PRN PRN PRN Reason: INSOMNIA Last Admin: 08/09/20 23:23 Dose: 15 mg Documented by: Tolterodine Tartrate (Tolterodine Tartrate 4 Mg Cap.Sa) 4 mg PO QPM [facility] Last Admin: 08/09/20 21:56 Dose: 4 mg Documented by: STROKE Vital Signs/Narrative: Vital Signs Temp Pulse Resp BP Pulse Ox 08/10/20 11:06 97.9 F 72 16 144/68 H 96 Assessment/Plan This patient was seen in conjunction with Jose Guadalupe COREY. I have independently interviewed and examined the patient and reviewed pertinent history, examination findings, laboratory and plan of management. I have reviewed the note and agree with the documented findings with the few additional points. In brief, patient is 80-year-old gentleman is admitted from [place] [facility] for left foot ulcer with purulent drainage and surrounding cellulitis. MRI left foot shows osteomyelitis of fifth metatarsal and proximal phalanx with edema. Patient had debridement of ulcer down to necrotic bone, excision of fifth metatarsal head as per prelim OR note today. Preliminary wound shows no organisms but 3+ WBC. Will follow surgical tissue and bone culture. Patient on IV Zosyn as patient has surrounding cellulitis. MRSA PCR negative. Lower extremity arterial study is ordered. Diabetes mellitus type 2 with obesity, diabetic neuropathy: A1c 7.2 which he states is good glucose control. Glucose is around 150 in the Accu-Cheks. Patient has history of burning pain around the both feet but is allergic to gabapentin and Lyrica. Duloxetine 30 mg started. BUN/creatinine 22/1.12. Patient other comorbidities include coronary artery disease status post stents, hypertension, dyslipidemia, BPH, depression and gout: Rest as mentioned above. I have discussed my assessment with Jose Guadalupe COREY and orders have been reviewed. Microbiology Past 72 Hours 08/09/20 15:46 Wound Abcess - Aerobic & Anaerobic Swabs Gram Stain - Final 08/09/20 20:06 Mucosa - Nose SARS-CoV-2 Antigen (Rapid) - Final Laboratory Results 08/09/20 15:45: S.aureus Protein A PCR POSITIVE H, MRSA (PCR) Negative 08/09/20 16:11: POC Glucose 141 H 08/09/20 21:53: POC Glucose 150 H 08/10/20 06:41: WBC 7.3, RBC 4.10 L, Hgb 11.7 L, Hct 36.3 L, MCV 88.5, MCH 28.5, MCHC 32.2, RDW Std Deviation 45.3 H, RDW Coeff of Betsy 13.9, Plt Count 230, MPV 10.9, Immature Gran % (Auto) 0.700, Neut % (Auto) 57.1, Lymph % (Auto) 25.9, O'Brien % (Auto) 9.6, Eos % (Auto) 5.9 H, Baso % (Auto) 0.8, Absolute Neuts (auto) 4.2, Absolute Lymphs (auto) 1.89, Nucleated RBC % 0 08/10/20 06:41: Sodium 140, Potassium 3.6, Chloride 110 H, Carbon Dioxide 25.0, Anion Gap 5, BUN 22 H, Creatinine 1.12, Estim Creat Clear Calc 50.89, Est GFR (MDRD) Af Amer 81, Est GFR (MDRD) Non-Af 67, BUN/Creatinine Ratio 19.6, Glucose 155 H, Calcium 8.4 L 08/10/20 06:41: Hemoglobin A1c 7.2 H 08/10/20 06:42: POC Glucose 166 H 08/10/20 11:03: POC Glucose 151 H Clinical Impression(s) from Imaging Studies Foot X-Ray 08/09/20 16:37 IMPRESSION: Generative changes of the left foot. There is no fracture, dislocation or evidence of osteomyelitis. There is continued concern for osteomyelitis, bone scan or MRI is recommended. Lower Extremity MRI 08/09/20 16:49 IMPRESSION: Edema with osteomyelitis of the fifth metatarsal and proximal phalanx. Electronically Signed: Clyde Melissa MD at 19:53 EST , Service support , Inpatient E&M: [id number] Subs Hosp L2
--- NOTE | 2020-08-10 11:45 | NURSING ---
pt left for surgery
[2020-08-10] MEDS: 0.9% Normal Saline 1,000 ML 75 ML IV (12:30)
[2020-08-10] MEDS: Bupivacaine Mpf 0.5% 30 ML VIAL (12:55)
--- NOTE | 2020-08-10 13:25 | PCM.OPRPT ---
Report of Operation Date of Procedure: 08/10/20 Pre-Operative Diagnosis: Osteomyelitis left 5th ray - left foot. Ulceration down to necrotic bone left foot Post-Operative Diagnosis: Same Surgery/Procedure Performed:: Debridement of ulcer down to necrotic bone, excision of 5th metatarsal head - left foot infrastructure software engineer: None infrastructure software engineer: None Type of Anesthesia:: Local MAC Specimen's removed: 1. Excised ulceration and 5th metatarsal head from left foot sent to microbiology and pathology. 2. Clearance fragment from 5th metatarsal and base of proximal phalanx 5th toe sent to microbiology and pathology - left foot Estimated Blood Loss (mL): 10mL Description of Procedure: Indications: This is a 80 year old gentleman with diabetes who has infection w/ osteomyelitis to the left foot at level of the 5th ray. MRI shows osteomyelitis to the 5th metatarsal as well as base of the proximal phalanx of the 5th toe. Given the findings patient agreed to proceed with debridement of left foot. The consent form was reviewed with the patient and he freely signed it. Patient understands risks of possible limb loss and . Also reviewed possible other complications which include but are not limited to pain, further infections, blood clots, need for further surgery, swelling, nonhealing, delayed healing, deformity, transfer lesions. Patient expressed understands and agreement and was able to repeat back. All of patient's questions were answered. No guarantees were given nor implied. Operative procedure: Patient was brought back into the operating room and was placed on the operating room table in the supine position. Patient was carefully secured to the operating room table with a safety belt around his waist. A time out was performed and the patient was properly identified and the surgical plan was confirmed. A well padded pneumatic tourniquet was applied around the patient's left ankle. The patient received MAC anesthesia and then a total of 10mL of 0.5% Bupivacaine plain was given as a local nerve block around the left foot 5th ray. The left foot was scrubbed, prepped, and draped in the usual aseptic fashion. Further attention was directed to the left foot where there was a necrotic ulceration to the lateral 5th metatarsal head which probed deep very close to bone, there was purulence draining from wound and there was significant cellulitis present to the site. The left foot was elevated for 3 minutes and the right ankle pneumatic tourniquet was inflated to 250mmHg. All nonviable, infected, and necrotic soft tissue and bone was debrided from the foot - this entailed the ulceration down to bone and the 5th metatarsal head. The 5th metatarsal head was soft, ybarra, and nonviable consistent with infection. The shaft of the 5th metatarsal as well as the base of the 5th toe proximal phalanx were noted to viable, hard and white in appearance. There was abscess to the ulceration site lateral to the 5th metatarsal head which was debrided, drained and excised. This was debrided down to healthy viable soft tissue and bone. The removed 5th metatarsal head and ulceration/abscess was sent to pathology and microbiology for further evaluation. A clearance fragment was taken from the 5th metatarsal as well as from the base of the proximal phalanx 5th toe - sent for further evaluation - this was sent to microbiology and pathology. The clearance fragments did appear to be healthy and viable. The site was flushed out with copious amounts of normal saline solution. All remain tissues appeared healthy and viable. The tissue margins were reapproximated using 3-0 Prolene, and centrally the site was left open to drain. The site was packed with 1/4 inch Iodoform packing. A dressing was applied which consisted of betadine soaked gauze, 4x4 gauze, kerlix and chris dressing. The pneumatic tourniquet was deflated (total tourniquet time was 25 minutes) and there was immediate return of warmth and perfusion to the foot and remaining toes. The patient tolerated the procedure well and the anesthesia well with no complications. The patient was transported from the operating room to the recovery room with vital signs stable and in good condition. Post op orders were placed. Post op xrays were obtained which confirmed debridement as noted above, otherwise no acute findings. The patient will be followed as an inpatient. Grafts/Implants Used: None - Complications None
--- NOTE | 2020-08-10 13:33 | RAD_ITS ---
STUDY: X-RAY - LEFT FOOT CLINICAL: Male, 80 years old. Postoperative evaluation after debridement and resection. TECHNIQUE: 3 view(s) of the foot. COMPARISON: 08/09/2020 FINDINGS: Generalized osteopenia. Resection of the distal aspect of the fifth metatarsal with expected soft tissue gas. 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 RAD/Foot min 3 Views IMPRESSION: Post resection changes of the fifth metatarsal. 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 Electronically Signed: William Javier MD at 16:19 EST , Service support ,
[2020-08-10 16:30] LABS: Bedside Glucose 113 mg/dL (70-110)
[2020-08-10] MEDS: Acetaminophen 325 MG Tablet 650 MG PO (21:15)
[2020-08-10] MEDS: Tolterodine Tartrate 4 MG CAP.SA PO (21:16)
[2020-08-10] MEDS: Atorvastatin Calcium 80 MG Tablet PO (21:16)
[2020-08-10] MEDS: Clopidogrel Bisulfate 75 MG Tablet PO (21:16)
[2020-08-10 21:30] LABS: Bedside Glucose 163 mg/dL (70-110)
[2020-08-10] MEDS: hydrALAZINE 20 MG/ML Vial 10 MG IV (22:38)
[2020-08-11] VITALS (9 sets, daily range): BP systolic 129–191; BP diastolic 55–82; PULSE 71–90; RESP 16–18; TEMP 36.6–37; O2SAT 95–97
[2020-08-11] MEDS: hydrALAZINE 20 MG/ML Vial 10 MG IV (02:31)
[2020-08-11] MEDS: LORazepam 2 MG/ML Syringe 0.5 MG IV (03:00)
[2020-08-11] MEDS: Acetaminophen 325 MG Tablet 650 MG PO ×2 (03:29→20:09)
[2020-08-11] MEDS: Insulin Lispro 100 UNIT/ML INSULN.PEN SC ×4 (06:28→22:12)
[2020-08-11 06:50] LABS: Bedside Glucose 160 mg/dL (70-110)
--- NOTE | 2020-08-11 07:50 | NURSING ---
wound photo: left foot
--- NOTE | 2020-08-11 08:07 | PN_ITS ---
Patient Problems: Active and Suspected Problems Cellulitis (Acute) HLD (hyperlipidemia) (Acute) Subjective: Patient was seen this morning for follow up on left foot. Patient has no new complaints. No fever, chills, nausea or vomiting. He is resting comfortably in bed. - Physical Exam Vitals/I&O's: Vital Signs Temp Pulse Resp BP Pulse Ox 98.6 F 83 16 132/55 H 97 08/11/20 03:30 08/11/20 03:30 08/11/20 03:30 08/11/20 03:30 08/11/20 03:30 Oxygen Delivery Method Room Air Weight: 98.6 kg Body Mass Index (BMI) 33.0 Intake and Output for Last 24 Hours 08/09/20 08/10/20 08/11/20 23:59 23:59 23:59 Intake Total 1150 / 1150 1250 / 1650 600 / 600 Output Total 350 / 850 500 / 500 Balance 1150 / 1150 900 / 800 100 / 100 General: Alert, Oriented x3, Cooperative, No apparent distress Extremities: Capillary Refill Less than 3 Seconds, No Calf Tenderness, - - s/p left foot 5th ray debridement - foot much improved - significantly less erythema, less edema, no purulence, no visible abscess, no maloder, no necrosis - tissues healthy and viable appearing, no acute ischemia. Musculoskeletal: No Tenderness to Palpation of Joints or Extremities - to the left foot Psych/Mental Status: Appropriate, Alert and oriented to time, place, person, mood and affect Microbiology Past 72 Hours 08/10/20 13:38 Bone - 5th Toe Gram Stain - Final 08/10/20 13:40 Bone - 5th Toe Gram Stain - Final 08/10/20 13:38 Tissue - 5th Toe Gram Stain - Final 08/09/20 15:46 Wound Abcess - Aerobic & Anaerobic Swabs Gram Stain - Final 08/09/20 20:06 Mucosa - Nose SARS-CoV-2 Antigen (Rapid) - Final Laboratory Results 08/10/20 06:41: Hemoglobin A1c 7.2 H 08/10/20 11:03: POC Glucose 151 H 08/10/20 16:08: POC Glucose 113 H 08/10/20 21:20: POC Glucose 163 H 08/11/20 06:28: POC Glucose 160 H Current Medications Acetaminophen (Acetaminophen 325 Mg Tablet) 650 mg PO Q6H PRN PRN PRN Reason: Pain Score 1-10/Temp > 100.7 F Last Admin: 08/11/20 03:29 Dose: 650 mg Documented by: Allopurinol (Allopurinol 100 Mg Tablet) 100 mg PO DAILY@0800 [facility] Last Admin: 08/10/20 07:32 Dose: Not Given Documented by: Amlodipine Besylate (Amlodipine 10 Mg Tablet) 10 mg PO DAILY [facility] Aspirin (Aspirin 81 Mg Tab.Chew) 81 mg PO DAILY@0800 [facility] Last Admin: 08/10/20 07:30 Dose: Not Given Documented by: Atorvastatin Calcium (Atorvastatin Calcium 80 Mg Tablet) 80 mg PO QHS [facility] Last Admin: 08/10/20 21:16 Dose: 80 mg Documented by: Carvedilol (Carvedilol 6.25 Mg Tablet) 6.25 mg PO BID [facility] Last Admin: 08/10/20 21:16 Dose: 6.25 mg Documented by: Clopidogrel Bisulfate (Clopidogrel Bisulfate 75 Mg Tablet) 75 mg PO QPM [facility] Last Admin: 08/10/20 21:16 Dose: 75 mg Documented by: Duloxetine HCl (Duloxetine Hcl 30 Mg Capsule) 30 mg PO DAILY [facility] Enoxaparin Sodium (Enoxaparin 40 Mg/0.4 Ml Syringe) 40 mg SC DAILY [facility] Last Admin: 08/10/20 07:30 Dose: Not Given Documented by: Hydralazine HCl (Hydralazine 20 Mg/Ml Vial) 10 mg IV Q4H PRN PRN PRN Reason: SBP > 160 Last Admin: 08/11/20 02:31 Dose: 10 mg Documented by: Piperacillin Sod/Tazobactam (Sod 3.375 gm/ Sodium Chloride) 50 mls @ 12.5 mls/hr IV Q8 [facility] Last Admin: 08/11/20 06:23 Dose: 12.5 mls/hr Documented by: Insulin Human Lispro (Insulin Lispro 100 Unit/Ml Insuln.Pen) 0 unit SC [facility]; Protocol Last Admin: 08/11/20 06:28 Dose: 2 u Documented by: Losartan Potassium (Losartan Potassium 100 Mg Tablet) 100 mg PO DAILY [facility] Last Admin: 08/10/20 07:31 Dose: 100 mg Documented by: Ondansetron HCl (Ondansetron 4 Mg/2 Ml Vial) 4 mg IV Q8H PRN PRN PRN Reason: NAUSEA/VOMITING Sodium Chloride (0.9% Saline Lock 10 Ml Syringe) 10 - 40 ml IV UD PRN PRN Reason: SALINE FLUSH Last Admin: 08/10/20 06:35 Dose: 10 ml Documented by: Temazepam (Temazepam 15 Mg Capsule) 15 mg PO QHS PRN PRN PRN Reason: INSOMNIA Last Admin: 08/09/20 23:23 Dose: 15 mg Documented by: Tolterodine Tartrate (Tolterodine Tartrate 4 Mg Cap.Sa) 4 mg PO QPM [facility] Last Admin: 08/10/20 21:16 Dose: 4 mg Documented by: Medical Necessity - Tobacco Use Smoking Status: Current every day smoker Tobacco Use: Non-smoker Assessment/Plan All Active Problems Cellulitis (Acute) HLD (hyperlipidemia) (Acute) Ulceration with osteomyelitis left 5th ray s/p debridement on 08/10/2020 Diabetes with peripheral neuropathy Reviewed diagnostic data. Foot much improved today. Cultures pending - continue with IV antibiotic - pt on Zosyn at this time, ID/Dr. Maria consulted. Dressing changes left foot: pack with Iodoform/gauze packing, overlying gauze, kerlix and chris dressing - change daily. No weightbearing left foot. Keep left foot elevated. LEAS - noninvasive lower extremity arterial studies were ordered. Discussed possible nursing facility placement - I recommend this if possible - for wound care, antibiotics, nonweightbearing left foot, and rehab - discussed with patient's daughter (who helps care for patient at home) who agreed, discussed with patient today as well - he relates he will consider it. Podiatry will continue to follow closely.
[2020-08-11 08:31] LABS: Absolute Lymphocyte Count 1.42 X10^3/uL (0.83-4.51); Absolute Neutrophil Count 5.5 X10^3/uL (2.0-7.7); Basophil# 0.07 X10^3/uL; Basophil% 0.9 % (0-1); Eosinophil# 0.47 X10^3/uL; Eosinophils% 5.7 % (0-5); Hematocrit 37.5 % (40-54); Hemoglobin 12.4 g/dL (13.0-16.5); Lymphocyte # 1.42 X10^3/ul (4.0); Lymphocyte % 17.3 % (19-41); Mean Corp Hgb Conc 33.1 g/dL (32-36); Mean Corpuscular Volume 87.8 fL (80-94); Mean Platelet Vol. 10.5 fl (6.2-12.0); Monocyte# 0.64 X10^3/uL; Monocyte% 7.8 % (0-10); NRBC Flagged by Analyzer 0 % (0-5); Neutrophil # 5.54 X10^3/uL (2.7-7.7); Neutrophil % 67.3 % (47-70); Platelet Count 253 K/mm3 (150-450); RBC Distribution Width CV 13.8 % (11.6-14.6); RBC Distribution Width SD 44.4 fl (35.1-43.9); Red Blood Count 4.27 M/mm3 (4.6-6.2); White Blood Count 8.2 K/mm3 (4.4-11.0)
[2020-08-11] MEDS: Aspirin 81 MG TAB.CHEW PO (08:45)
[2020-08-11] MEDS: Allopurinol 100 MG Tablet PO (08:47)
[2020-08-11] MEDS: Carvedilol 6.25 MG Tablet PO ×2 (08:48→20:07)
[2020-08-11] MEDS: Losartan Potassium 100 MG Tablet PO (08:48)
[2020-08-11] MEDS: DULoxetine Hcl 30 MG Capsule PO (08:49)
[2020-08-11] MEDS: amLODIPine 10 MG Tablet PO (08:50)
[2020-08-11] MEDS: Enoxaparin 40 MG/0.4 ML Syringe SC (08:52)
[2020-08-11 08:59] LABS: Anion Gap 8 (5-15); BUN 19 mg/dL (7-18); BUN/Creat Ratio 17.9 RATIO (10-20); Calcium,Total 8.6 mg/dL (8.5-10.1); Chloride 109 mmol/L (98-107); Creatinine, Serum 1.06 mg/dL (0.70-1.30); EST Glomerular Filtration Rate 71 mL/min (>60); Est Glom Filt Rate - Afr Amer 86 mL/min (>60); Estimated Creatinine Clearance 53.77 ml/min; Glucose 128 mg/dL (74-106); Potassium 3.8 mmol/L (3.5-5.1); Sodium Level 140 mmol/L (136-145)
[2020-08-11 11:21] LABS: Bedside Glucose 162 mg/dL (70-110)
--- NOTE | 2020-08-11 11:41 | PCM.PN.HOSP ---
Patient Problems: Active and Suspected Problems Cellulitis (Acute) HLD (hyperlipidemia) (Acute) Reason for Visit: Seen and examined. No fever or chills. Heart rate and blood pressure controlled. Mild left foot pain. Patient had Debridement of left foot ulcer down to necrotic bone, excision of 5th metatarsal head Physical exam General: Alert, Oriented x3, Cooperative HEENT: Atraumatic, PERRLA, EOMI, Normocephalic Oral: No Gingival or Mucosal Lesions/ Ulcerations Neck: Supple, No JVD, Negative Carotid Bruits Lungs: Air entry diminished in bilateral lung bases. No crepitation/rhonchi Cardiovascular: Regular rate, Regular Rhythm, Normal S1, Normal S2, No murmurs Abdomen: Bowel Sounds Present, Soft, Non Tender, Non-Distended : No renal angle tenderness. No suprapubic tenderness. Extremities: Mild left ankle edema, Capillary Refill Less than 3 Seconds Skin: Status post debridement of necrotic ulcer with osteomyelitis. Jasmeet wrap bandage. Dressing is dry. Musculoskeletal: No Tenderness to Palpation of Joints or Extremities Neurological: Cranial nerves II-XII grossly intact, Deep Tendon Reflexes 2+/4 and Symmetrical, Neuro grossly intact Psych/Mental Status: Normal Affect, Appropriate. Vitals/I&O's: Vital Signs Temp Pulse Resp BP Pulse Ox 98.2 F 66 16 144/62 H 95 08/12/20 02:10 08/12/20 02:10 08/12/20 02:10 08/12/20 02:10 08/12/20 02:10 Oxygen Delivery Method Room Air Weight: 217 lb 6.012 oz Body Mass Index (BMI) 33.0 Intake and Output for Last 24 Hours 08/10/20 08/11/20 08/12/20 23:59 23:59 23:59 Intake Total 1250 / 1650 700 / 950 300 / 300 Output Total 350 / 850 680 / 1355 1175 / 1175 Balance 900 / 800 20 / -405 -875 / -875 Microbiology Past 72 Hours 08/10/20 13:40 Bone - 5th Toe Gram Stain - Final 08/10/20 13:40 Bone - 5th Toe Wound Culture - Preliminary No growth-Final to follow 08/10/20 13:40 Bone - 5th Toe Anaerobic Culture - Preliminary No growth in 48 hours. 08/10/20 13:38 Bone - 5th Toe Gram Stain - Final 08/10/20 13:38 Bone - 5th Toe Anaerobic Culture - Preliminary Checking for anaerobes, further studies to follow. 08/10/20 13:38 Tissue - 5th Toe Gram Stain - Final 08/10/20 13:38 Tissue - 5th Toe Wound Culture - Final Staphylococcus aureus 08/10/20 13:38 Tissue - 5th Toe Anaerobic Culture - Preliminary Checking for anaerobes, further studies to follow. 08/09/20 15:46 Wound Abcess - Aerobic & Anaerobic Swabs Gram Stain - Final 08/09/20 15:46 Wound Abcess - Aerobic & Anaerobic Swabs Wound Culture - Preliminary No growth-Final to follow 08/09/20 15:46 Wound Abcess - Aerobic & Anaerobic Swabs Anaerobic Culture - Preliminary Checking for anaerobes, further studies to follow. 08/09/20 20:06 Mucosa - Nose SARS-CoV-2 Antigen (Rapid) - Final Laboratory Results 08/11/20 08:19: Sodium 140, Potassium 3.8, Chloride 109 H, Carbon Dioxide 23.0, Anion Gap 8, BUN 19 H, Creatinine 1.06, Estim Creat Clear Calc 53.77, Est GFR (MDRD) Af Amer 86, Est GFR (MDRD) Non-Af 71, BUN/Creatinine Ratio 17.9, Glucose 128 H, Calcium 8.6 08/11/20 11:10: POC Glucose 162 H 08/11/20 16:29: POC Glucose 187 H 08/11/20 21:35: POC Glucose 196 H 08/12/20 06:26: WBC 7.1, RBC 4.41 L, Hgb 12.7 L, Hct 38.8 L, MCV 88.0, MCH 28.8, MCHC 32.7, RDW Std Deviation 44.0 H, RDW Coeff of Betsy 13.6, Plt Count 259, MPV 10.1, Immature Gran % (Auto) 1.100 H, Neut % (Auto) 57.6, Lymph % (Auto) 22.7, Crosby % (Auto) 9.3, Eos % (Auto) 8.5 H, Baso % (Auto) 0.8, Absolute Neuts (auto) 4.1, Absolute Lymphs (auto) 1.60, Nucleated RBC % 0 08/12/20 06:26: Sodium 139, Potassium 3.7, Chloride 107, Carbon Dioxide 25.0, Anion Gap 7, BUN 22 H, Creatinine 1.07, Estim Creat Clear Calc 53.27, Est GFR (MDRD) Af Amer 85, Est GFR (MDRD) Non-Af 71, BUN/Creatinine Ratio 20.6 H, Glucose 150 H, Calcium 8.4 L 08/12/20 06:34: POC Glucose 149 H Current Medications Acetaminophen (Acetaminophen 325 Mg Tablet) 650 mg PO Q6H PRN PRN PRN Reason: Pain Score 1-10/Temp > 100.7 F Last Admin: 08/12/20 05:10 Dose: 650 mg Documented by: Allopurinol (Allopurinol 100 Mg Tablet) 100 mg PO DAILY@0800 [facility] Last Admin: 08/11/20 08:47 Dose: 100 mg Documented by: Amlodipine Besylate (Amlodipine 10 Mg Tablet) 10 mg PO DAILY [facility] Last Admin: 08/11/20 08:50 Dose: 10 mg Documented by: Aspirin (Aspirin 81 Mg Tab.Chew) 81 mg PO DAILY@0800 [facility] Last Admin: 08/11/20 08:45 Dose: 81 mg Documented by: Atorvastatin Calcium (Atorvastatin Calcium 80 Mg Tablet) 80 mg PO QHS [facility] Last Admin: 08/11/20 20:08 Dose: 80 mg Documented by: Carvedilol (Carvedilol 6.25 Mg Tablet) 6.25 mg PO BID [facility] Last Admin: 08/11/20 20:07 Dose: 6.25 mg Documented by: Clopidogrel Bisulfate (Clopidogrel Bisulfate 75 Mg Tablet) 75 mg PO QPM [facility] Last Admin: 08/11/20 20:07 Dose: 75 mg Documented by: Duloxetine HCl (Duloxetine Hcl 30 Mg Capsule) 30 mg PO DAILY [facility] Last Admin: 08/11/20 08:49 Dose: 30 mg Documented by: Enoxaparin Sodium (Enoxaparin 40 Mg/0.4 Ml Syringe) 40 mg SC DAILY [facility] Last Admin: 08/11/20 08:52 Dose: 40 mg Documented by: Hydralazine HCl (Hydralazine 20 Mg/Ml Vial) 10 mg IV Q4H PRN PRN PRN Reason: SBP > 160 Last Admin: 08/11/20 02:31 Dose: 10 mg Documented by: Piperacillin Sod/Tazobactam (Sod 3.375 gm/ Sodium Chloride) 50 mls @ 12.5 mls/hr IV Q8 [facility] Last Admin: 08/12/20 05:08 Dose: 12.5 mls/hr Documented by: Insulin Human Lispro (Insulin Lispro 100 Unit/Ml Insuln.Pen) 0 unit SC [facility]; Protocol Last Admin: 08/12/20 06:35 Dose: Not Given Documented by: Losartan Potassium (Losartan Potassium 100 Mg Tablet) 100 mg PO DAILY [facility] Last Admin: 08/11/20 08:48 Dose: 100 mg Documented by: Ondansetron HCl (Ondansetron 4 Mg/2 Ml Vial) 4 mg IV Q8H PRN PRN PRN Reason: NAUSEA/VOMITING Sodium Chloride (0.9% Saline Lock 10 Ml Syringe) 10 - 40 ml IV UD PRN PRN Reason: SALINE FLUSH Last Admin: 08/11/20 16:34 Dose: 10 ml Documented by: Temazepam (Temazepam 15 Mg Capsule) 15 mg PO QHS PRN PRN PRN Reason: INSOMNIA Last Admin: 08/09/20 23:23 Dose: 15 mg Documented by: Tolterodine Tartrate (Tolterodine Tartrate 4 Mg Cap.Sa) 4 mg PO QPM [facility] Last Admin: 08/11/20 20:08 Dose: 4 mg Documented by: Medical Necessity - Tobacco Use Smoking Status: Current every day smoker Tobacco Use: Non-smoker Assessment/Plan All Active Problems Cellulitis (Acute) HLD (hyperlipidemia) (Acute) The patient is 80-year-old gentleman is admitted from [place] ER for left foot ulcer with purulent drainage and surrounding cellulitis suggestive of diabetic foot ulcer complicated with osteomyelitis.. 1. Acute cellulitis and osteomyelitis of the left foot, fifth metatarsal and proximal phalanx- MRI left foot shows osteomyelitis of fifth metatarsal and proximal phalanx with edema. Patient had debridement of ulcer down to necrotic bone, excision of fifth metatarsal head. Preliminary wound shows MSSA. Tissue culture pending. Patient on IV Zosyn as patient has surrounding cellulitis. MRSA PCR negative. Lower extremity arterial study mild calcific occlusive disease on right foot, abnormal right digital brachial index. 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 2. Dmt2 with obesity, peripheral neuropathy - Diabetes mellitus type 2 with obesity, diabetic neuropathy: A1c 7.2 which he states is good glucose control. 3. CAD - prior stents - pt on aspirin, plavix, coreg, losartan, statin 4. HTN - continue home meds 5. HLD - statin 6. BPH - detrol 7. depression - zoloft 8. gout - allopurinol DVT ppx: lovenox [place] planning: On PT evaluation Inpatient E&M: 74995 Subs Hosp L2
[2020-08-11] MEDS: 0.9% Saline Lock 10 ML Syringe IV ×2 (15:00→16:34)
--- NOTE | 2020-08-11 16:01 | CASEMGMT ---
Social Work Note MARISELA reviewed notes, SNF is being recommended by physician. SW in to speak with pt. SW introduced self and role at [facility]. Pt is alert and orientated. Pt confirms that he was spoken to regarding SNF, states they told me there's a place in house. Patient was provided a list of SNF providers including quality and resource use data and consistent with the patient?s preferred geographic region, medical needs, and insurance network. The patient?s preferred provider is [facility] but then states check with my daughter. SW placed a call to pt's daughter Mariel. Mariel confirms she was aware of SNF recommendations also mentioned the unit at [facility]. SW explained [facility] to Mariel. Mariel agreeable to [facility]. MARISELA had called Kathy in TCU earlier, TCU will have a bed available for pt. Plan: TCU when medically cleared Lissy Lopez [employer], [employer]
[2020-08-11 17:11] LABS: Bedside Glucose 187 mg/dL (70-110)
[2020-08-11] MEDS: Clopidogrel Bisulfate 75 MG Tablet PO (20:07)
[2020-08-11] MEDS: Atorvastatin Calcium 80 MG Tablet PO (20:08)
[2020-08-11] MEDS: Tolterodine Tartrate 4 MG CAP.SA PO (20:08)
[2020-08-11 21:45] LABS: Bedside Glucose 196 mg/dL (70-110)
[2020-08-12 02:10] VITALS: BP 144/62; PULSE 66; RESP 16; TEMP 36.8; O2SAT 95
[2020-08-12] MEDS: Acetaminophen 325 MG Tablet 650 MG PO (05:10)
[2020-08-12 06:42] LABS: Absolute Neutrophil Count 4.1 X10^3/uL (2.0-7.7); Basophil# 0.06 X10^3/uL; Basophil% 0.8 % (0-1); Eosinophils% 8.5 % (0-5); Hematocrit 38.8 % (40-54); Hemoglobin 12.7 g/dL (13.0-16.5); Lymphocyte % 22.7 % (19-41); Mean Corp Hgb Conc 32.7 g/dL (32-36); Mean Corpuscular Hgb 28.8 pg (27.0-32.0); Mean Platelet Vol. 10.1 fl (6.2-12.0); Monocyte# 0.66 X10^3/uL; Monocyte% 9.3 % (0-10); NRBC Flagged by Analyzer 0 % (0-5); Neutrophil # 4.06 X10^3/uL (2.7-7.7); Neutrophil % 57.6 % (47-70); Platelet Count 259 K/mm3 (150-450); RBC Distribution Width CV 13.6 % (11.6-14.6); Red Blood Count 4.41 M/mm3 (4.6-6.2); White Blood Count 7.1 K/mm3 (4.4-11.0)
[2020-08-12 06:45] LABS: Bedside Glucose 149 mg/dL (70-110)
[2020-08-12 07:09] LABS: Anion Gap 7 (5-15); BUN 22 mg/dL (7-18); BUN/Creat Ratio 20.6 RATIO (10-20); Calcium,Total 8.4 mg/dL (8.5-10.1); Chloride 107 mmol/L (98-107); Creatinine, Serum 1.07 mg/dL (0.70-1.30); EST Glomerular Filtration Rate 71 mL/min (>60); Est Glom Filt Rate - Afr Amer 85 mL/min (>60); Estimated Creatinine Clearance 53.27 ml/min; Glucose 150 mg/dL (74-106); Potassium 3.7 mmol/L (3.5-5.1); Sodium Level 139 mmol/L (136-145)
--- NOTE | 2020-08-12 08:42 | PN_ITS ---
Patient Problems: Active and Suspected Problems Cellulitis (Acute) HLD (hyperlipidemia) (Acute) Vitals/I&O's: Vital Signs Temp Pulse Resp BP Pulse Ox 98.2 F 66 16 144/62 H 95 08/12/20 02:10 08/12/20 02:10 08/12/20 02:10 08/12/20 02:10 08/12/20 02:10 Oxygen Delivery Method Room Air Weight: 217 lb 6.012 oz Body Mass Index (BMI) 33.0 Intake and Output for Last 24 Hours 08/10/20 08/11/20 08/12/20 23:59 23:59 23:59 Intake Total 1250 / 1650 700 / 950 300 / 300 Output Total 350 / 850 680 / 1355 1175 / 1175 Balance 900 / 800 20 / -405 -875 / -875 Microbiology Past 72 Hours 08/10/20 13:40 Bone - 5th Toe Gram Stain - Final 08/10/20 13:40 Bone - 5th Toe Wound Culture - Preliminary No growth-Final to follow 08/10/20 13:40 Bone - 5th Toe Anaerobic Culture - Preliminary No growth in 48 hours. 08/10/20 13:38 Bone - 5th Toe Gram Stain - Final 08/10/20 13:38 Bone - 5th Toe Anaerobic Culture - Preliminary Checking for anaerobes, further studies to follow. 08/10/20 13:38 Tissue - 5th Toe Gram Stain - Final 08/10/20 13:38 Tissue - 5th Toe Wound Culture - Final Staphylococcus aureus 08/10/20 13:38 Tissue - 5th Toe Anaerobic Culture - Preliminary Checking for anaerobes, further studies to follow. 08/09/20 15:46 Wound Abcess - Aerobic & Anaerobic Swabs Gram Stain - Final 08/09/20 15:46 Wound Abcess - Aerobic & Anaerobic Swabs Wound Culture - Preliminary No growth-Final to follow 08/09/20 15:46 Wound Abcess - Aerobic & Anaerobic Swabs Anaerobic Culture - Preliminary Checking for anaerobes, further studies to follow. 08/09/20 20:06 Mucosa - Nose SARS-CoV-2 Antigen (Rapid) - Final Laboratory Results 08/11/20 08:19: Sodium 140, Potassium 3.8, Chloride 109 H, Carbon Dioxide 23.0, Anion Gap 8, BUN 19 H, Creatinine 1.06, Estim Creat Clear Calc 53.77, Est GFR (MDRD) Af Amer 86, Est GFR (MDRD) Non-Af 71, BUN/Creatinine Ratio 17.9, Glucose 128 H, Calcium 8.6 08/11/20 11:10: POC Glucose 162 H 08/11/20 16:29: POC Glucose 187 H 08/11/20 21:35: POC Glucose 196 H 08/12/20 06:26: WBC 7.1, RBC 4.41 L, Hgb 12.7 L, Hct 38.8 L, MCV 88.0, MCH 28.8, MCHC 32.7, RDW Std Deviation 44.0 H, RDW Coeff of Betsy 13.6, Plt Count 259, MPV 10.1, Immature Gran % (Auto) 1.100 H, Neut % (Auto) 57.6, Lymph % (Auto) 22.7, [place] % (Auto) 9.3, Eos % (Auto) 8.5 H, Baso % (Auto) 0.8, Absolute Neuts (auto) 4.1, Absolute Lymphs (auto) 1.60, Nucleated RBC % 0 08/12/20 06:26: Sodium 139, Potassium 3.7, Chloride 107, Carbon Dioxide 25.0, Anion Gap 7, BUN 22 H, Creatinine 1.07, Estim Creat Clear Calc 53.27, Est GFR (MDRD) Af Amer 85, Est GFR (MDRD) Non-Af 71, BUN/Creatinine Ratio 20.6 H, Glucose 150 H, Calcium 8.4 L 08/12/20 06:34: POC Glucose 149 H Current Medications Acetaminophen (Acetaminophen 325 Mg Tablet) 650 mg PO Q6H PRN PRN PRN Reason: Pain Score 1-10/Temp > 100.7 F Last Admin: 08/12/20 05:10 Dose: 650 mg Documented by: Allopurinol (Allopurinol 100 Mg Tablet) 100 mg PO DAILY@0800 [facility] Last Admin: 08/11/20 08:47 Dose: 100 mg Documented by: Amlodipine Besylate (Amlodipine 10 Mg Tablet) 10 mg PO DAILY [facility] Last Admin: 08/11/20 08:50 Dose: 10 mg Documented by: Aspirin (Aspirin 81 Mg Tab.Chew) 81 mg PO DAILY@0800 [facility] Last Admin: 08/11/20 08:45 Dose: 81 mg Documented by: Atorvastatin Calcium (Atorvastatin Calcium 80 Mg Tablet) 80 mg PO QHS [facility] Last Admin: 08/11/20 20:08 Dose: 80 mg Documented by: Carvedilol (Carvedilol 6.25 Mg Tablet) 6.25 mg PO BID [facility] Last Admin: 08/11/20 20:07 Dose: 6.25 mg Documented by: Clopidogrel Bisulfate (Clopidogrel Bisulfate 75 Mg Tablet) 75 mg PO QPM [facility] Last Admin: 08/11/20 20:07 Dose: 75 mg Documented by: Duloxetine HCl (Duloxetine Hcl 30 Mg Capsule) 30 mg PO DAILY [facility] Last Admin: 08/11/20 08:49 Dose: 30 mg Documented by: Enoxaparin Sodium (Enoxaparin 40 Mg/0.4 Ml Syringe) 40 mg SC DAILY [facility] Last Admin: 08/11/20 08:52 Dose: 40 mg Documented by: Hydralazine HCl (Hydralazine 20 Mg/Ml Vial) 10 mg IV Q4H PRN PRN PRN Reason: SBP > 160 Last Admin: 08/11/20 02:31 Dose: 10 mg Documented by: Piperacillin Sod/Tazobactam (Sod 3.375 gm/ Sodium Chloride) 50 mls @ 12.5 mls/hr IV Q8 [facility] Last Admin: 08/12/20 05:08 Dose: 12.5 mls/hr Documented by: Insulin Human Lispro (Insulin Lispro 100 Unit/Ml Insuln.Pen) 0 unit SC [facility]; Protocol Last Admin: 08/12/20 06:35 Dose: Not Given Documented by: Losartan Potassium (Losartan Potassium 100 Mg Tablet) 100 mg PO DAILY [facility] Last Admin: 08/11/20 08:48 Dose: 100 mg Documented by: Ondansetron HCl (Ondansetron 4 Mg/2 Ml Vial) 4 mg IV Q8H PRN PRN PRN Reason: NAUSEA/VOMITING Sodium Chloride (0.9% Saline Lock 10 Ml Syringe) 10 - 40 ml IV UD PRN PRN Reason: SALINE FLUSH Last Admin: 08/11/20 16:34 Dose: 10 ml Documented by: Temazepam (Temazepam 15 Mg Capsule) 15 mg PO QHS PRN PRN PRN Reason: INSOMNIA Last Admin: 08/09/20 23:23 Dose: 15 mg Documented by: Tolterodine Tartrate (Tolterodine Tartrate 4 Mg Cap.Sa) 4 mg PO QPM [facility] Last Admin: 08/11/20 20:08 Dose: 4 mg Documented by: Medical Necessity - Tobacco Use Smoking Status: Current every day smoker Tobacco Use: Non-smoker Assessment/Plan All Active Problems Cellulitis (Acute) HLD (hyperlipidemia) (Acute) Debridement of ulcer down to necrotic bone, excision of 5th metatarsal head - left foot
--- NOTE | 2020-08-12 08:42 | PN_ITS ---
Patient Problems: Active and Suspected Problems Cellulitis (Acute) HLD (hyperlipidemia) (Acute) Vitals/I&O's: Vital Signs Temp Pulse Resp BP Pulse Ox 98.2 F 66 16 144/62 H 95 08/12/20 02:10 08/12/20 02:10 08/12/20 02:10 08/12/20 02:10 08/12/20 02:10 Oxygen Delivery Method Room Air Weight: 217 lb 6.012 oz Body Mass Index (BMI) 33.0 Intake and Output for Last 24 Hours 08/10/20 08/11/20 08/12/20 23:59 23:59 23:59 Intake Total 1250 / 1650 700 / 950 300 / 300 Output Total 350 / 850 680 / 1355 1175 / 1175 Balance 900 / 800 20 / -405 -875 / -875 Microbiology Past 72 Hours 08/10/20 13:40 Bone - 5th Toe Gram Stain - Final 08/10/20 13:40 Bone - 5th Toe Wound Culture - Preliminary No growth-Final to follow 08/10/20 13:40 Bone - 5th Toe Anaerobic Culture - Preliminary No growth in 48 hours. 08/10/20 13:38 Bone - 5th Toe Gram Stain - Final 08/10/20 13:38 Bone - 5th Toe Anaerobic Culture - Preliminary Checking for anaerobes, further studies to follow. 08/10/20 13:38 Tissue - 5th Toe Gram Stain - Final 08/10/20 13:38 Tissue - 5th Toe Wound Culture - Final Staphylococcus aureus 08/10/20 13:38 Tissue - 5th Toe Anaerobic Culture - Preliminary Checking for anaerobes, further studies to follow. 08/09/20 15:46 Wound Abcess - Aerobic & Anaerobic Swabs Gram Stain - Final 08/09/20 15:46 Wound Abcess - Aerobic & Anaerobic Swabs Wound Culture - Preliminary No growth-Final to follow 08/09/20 15:46 Wound Abcess - Aerobic & Anaerobic Swabs Anaerobic Culture - Preliminary Checking for anaerobes, further studies to follow. 08/09/20 20:06 Mucosa - Nose SARS-CoV-2 Antigen (Rapid) - Final Laboratory Results 08/11/20 08:19: Sodium 140, Potassium 3.8, Chloride 109 H, Carbon Dioxide 23.0, Anion Gap 8, BUN 19 H, Creatinine 1.06, Estim Creat Clear Calc 53.77, Est GFR (MDRD) Af Amer 86, Est GFR (MDRD) Non-Af 71, BUN/Creatinine Ratio 17.9, Glucose 128 H, Calcium 8.6 08/11/20 11:10: POC Glucose 162 H 08/11/20 16:29: POC Glucose 187 H 08/11/20 21:35: POC Glucose 196 H 08/12/20 06:26: WBC 7.1, RBC 4.41 L, Hgb 12.7 L, Hct 38.8 L, MCV 88.0, MCH 28.8, MCHC 32.7, RDW Std Deviation 44.0 H, RDW Coeff of Betsy 13.6, Plt Count 259, MPV 10.1, Immature Gran % (Auto) 1.100 H, Neut % (Auto) 57.6, Lymph % (Auto) 22.7, [place] % (Auto) 9.3, Eos % (Auto) 8.5 H, Baso % (Auto) 0.8, Absolute Neuts (auto) 4.1, Absolute Lymphs (auto) 1.60, Nucleated RBC % 0 08/12/20 06:26: Sodium 139, Potassium 3.7, Chloride 107, Carbon Dioxide 25.0, Anion Gap 7, BUN 22 H, Creatinine 1.07, Estim Creat Clear Calc 53.27, Est GFR (MDRD) Af Amer 85, Est GFR (MDRD) Non-Af 71, BUN/Creatinine Ratio 20.6 H, Glucose 150 H, Calcium 8.4 L 08/12/20 06:34: POC Glucose 149 H Current Medications Acetaminophen (Acetaminophen 325 Mg Tablet) 650 mg PO Q6H PRN PRN PRN Reason: Pain Score 1-10/Temp > 100.7 F Last Admin: 08/12/20 05:10 Dose: 650 mg Documented by: Allopurinol (Allopurinol 100 Mg Tablet) 100 mg PO DAILY@0800 [facility] Last Admin: 08/11/20 08:47 Dose: 100 mg Documented by: Amlodipine Besylate (Amlodipine 10 Mg Tablet) 10 mg PO DAILY [facility] Last Admin: 08/11/20 08:50 Dose: 10 mg Documented by: Aspirin (Aspirin 81 Mg Tab.Chew) 81 mg PO DAILY@0800 [facility] Last Admin: 08/11/20 08:45 Dose: 81 mg Documented by: Atorvastatin Calcium (Atorvastatin Calcium 80 Mg Tablet) 80 mg PO QHS [facility] Last Admin: 08/11/20 20:08 Dose: 80 mg Documented by: Carvedilol (Carvedilol 6.25 Mg Tablet) 6.25 mg PO BID [facility] Last Admin: 08/11/20 20:07 Dose: 6.25 mg Documented by: Clopidogrel Bisulfate (Clopidogrel Bisulfate 75 Mg Tablet) 75 mg PO QPM [facility] Last Admin: 08/11/20 20:07 Dose: 75 mg Documented by: Duloxetine HCl (Duloxetine Hcl 30 Mg Capsule) 30 mg PO DAILY [facility] Last Admin: 08/11/20 08:49 Dose: 30 mg Documented by: Enoxaparin Sodium (Enoxaparin 40 Mg/0.4 Ml Syringe) 40 mg SC DAILY [facility] Last Admin: 08/11/20 08:52 Dose: 40 mg Documented by: Hydralazine HCl (Hydralazine 20 Mg/Ml Vial) 10 mg IV Q4H PRN PRN PRN Reason: SBP > 160 Last Admin: 08/11/20 02:31 Dose: 10 mg Documented by: Piperacillin Sod/Tazobactam (Sod 3.375 gm/ Sodium Chloride) 50 mls @ 12.5 mls/hr IV Q8 [facility] Last Admin: 08/12/20 05:08 Dose: 12.5 mls/hr Documented by: Insulin Human Lispro (Insulin Lispro 100 Unit/Ml Insuln.Pen) 0 unit SC [facility]; Protocol Last Admin: 08/12/20 06:35 Dose: Not Given Documented by: Losartan Potassium (Losartan Potassium 100 Mg Tablet) 100 mg PO DAILY [facility] Last Admin: 08/11/20 08:48 Dose: 100 mg Documented by: Ondansetron HCl (Ondansetron 4 Mg/2 Ml Vial) 4 mg IV Q8H PRN PRN PRN Reason: NAUSEA/VOMITING Sodium Chloride (0.9% Saline Lock 10 Ml Syringe) 10 - 40 ml IV UD PRN PRN Reason: SALINE FLUSH Last Admin: 08/11/20 16:34 Dose: 10 ml Documented by: Temazepam (Temazepam 15 Mg Capsule) 15 mg PO QHS PRN PRN PRN Reason: INSOMNIA Last Admin: 08/09/20 23:23 Dose: 15 mg Documented by: Tolterodine Tartrate (Tolterodine Tartrate 4 Mg Cap.Sa) 4 mg PO QPM [facility] Last Admin: 08/11/20 20:08 Dose: 4 mg Documented by: Medical Necessity - Tobacco Use Smoking Status: Current every day smoker Tobacco Use: Non-smoker Assessment/Plan All Active Problems Cellulitis (Acute) HLD (hyperlipidemia) (Acute)
[2020-08-12 08:48] VITALS: BP 158/81; PULSE 63; RESP 18; TEMP 36.8; O2SAT 96
[2020-08-12 08:49] VITALS: PULSE 70
[2020-08-12] MEDS: Aspirin 81 MG TAB.CHEW PO (08:56)
[2020-08-12] MEDS: Allopurinol 100 MG Tablet PO (08:57)
[2020-08-12] MEDS: DULoxetine Hcl 30 MG Capsule PO (08:57)
[2020-08-12] MEDS: Carvedilol 6.25 MG Tablet PO (08:57)
[2020-08-12] MEDS: Enoxaparin 40 MG/0.4 ML Syringe SC (08:57)
[2020-08-12] MEDS: Losartan Potassium 100 MG Tablet PO (08:57)
--- NOTE | 2020-08-12 08:57 | CASEMGMT ---
Social Work Note SW placed a call to Kathy in TCU. TCU would have a bed available for pt today if pt is medically ready. Plan: TCU once medically ready Lissy Lopez MSW, [employer]IFE MACHINE OPERATOR
[2020-08-12] MEDS: amLODIPine 10 MG Tablet PO (08:58)
--- NOTE | 2020-08-12 10:54 | PCM.PROGNOTE ---
Patient Problems: Active and Suspected Problems Cellulitis (Acute) HLD (hyperlipidemia) (Acute) Subjective: Patient was seen today for follow up on left foot. He relates he is doing well, no complaints. Planning to go to TCU. No fever, chills, nausea or vomiting. - Physical Exam Vitals/I&O's: Vital Signs Temp Pulse Resp BP Pulse Ox 98.3 F 70 18 158/81 H 96 08/12/20 08:48 08/12/20 08:49 08/12/20 08:48 08/12/20 08:48 08/12/20 08:48 Oxygen Delivery Method Room Air Weight: 98.6 kg Body Mass Index (BMI) 33.0 Intake and Output for Last 24 Hours 08/10/20 08/11/20 08/12/20 23:59 23:59 23:59 Intake Total 1250 / 1650 700 / 950 300 / 300 Output Total 350 / 850 680 / 1355 1175 / 1175 Balance 900 / 800 20 / -405 -875 / -875 General: Alert, Oriented x3, Cooperative, No apparent distress Extremities: Capillary Refill Less than 3 Seconds, No Calf Tenderness, - - s/p left foot 5th ray debridement - foot much improved - very minimal to no erythema, less edema, no purulence, no visible abscess, no maloder, no necrosis - tissues healthy and viable appearing, no acute ischemia. Psych/Mental Status: Normal Affect, Appropriate, Alert and oriented to time, place, person, mood and affect Microbiology Past 72 Hours 08/10/20 13:38 Bone - 5th Toe Gram Stain - Final 08/10/20 13:38 Bone - 5th Toe Wound Culture - Preliminary Staphylococcus aureus 08/10/20 13:38 Bone - 5th Toe Anaerobic Culture - Preliminary Checking for anaerobes, further studies to follow. 08/10/20 13:38 Tissue - 5th Toe Gram Stain - Final 08/10/20 13:38 Tissue - 5th Toe Wound Culture - Final Staphylococcus aureus 08/10/20 13:38 Tissue - 5th Toe Anaerobic Culture - Preliminary Checking for anaerobes, further studies to follow. 08/09/20 15:46 Wound Abcess - Aerobic & Anaerobic Swabs Gram Stain - Final 08/09/20 15:46 Wound Abcess - Aerobic & Anaerobic Swabs Wound Culture - Preliminary Staphylococcus species 08/09/20 15:46 Wound Abcess - Aerobic & Anaerobic Swabs Anaerobic Culture - Preliminary Checking for anaerobes, further studies to follow. 08/10/20 13:40 Bone - 5th Toe Gram Stain - Final 08/10/20 13:40 Bone - 5th Toe Wound Culture - Preliminary No growth-Final to follow 08/10/20 13:40 Bone - 5th Toe Anaerobic Culture - Preliminary No growth in 48 hours. 08/09/20 20:06 Mucosa - Nose SARS-CoV-2 Antigen (Rapid) - Final Laboratory Results 08/11/20 11:10: POC Glucose 162 H 08/11/20 16:29: POC Glucose 187 H 08/11/20 21:35: POC Glucose 196 H 08/12/20 06:26: WBC 7.1, RBC 4.41 L, Hgb 12.7 L, Hct 38.8 L, MCV 88.0, MCH 28.8, MCHC 32.7, RDW Std Deviation 44.0 H, RDW Coeff of Betsy 13.6, Plt Count 259, MPV 10.1, Immature Gran % (Auto) 1.100 H, Neut % (Auto) 57.6, Lymph % (Auto) 22.7, [place] % (Auto) 9.3, Eos % (Auto) 8.5 H, Baso % (Auto) 0.8, Absolute Neuts (auto) 4.1, Absolute Lymphs (auto) 1.60, Nucleated RBC % 0 08/12/20 06:26: Sodium 139, Potassium 3.7, Chloride 107, Carbon Dioxide 25.0, Anion Gap 7, BUN 22 H, Creatinine 1.07, Estim Creat Clear Calc 53.27, Est GFR (MDRD) Af Amer 85, Est GFR (MDRD) Non-Af 71, BUN/Creatinine Ratio 20.6 H, Glucose 150 H, Calcium 8.4 L 08/12/20 06:34: POC Glucose 149 H Current Medications Acetaminophen (Acetaminophen 325 Mg Tablet) 650 mg PO Q6H PRN PRN PRN Reason: Pain Score 1-10/Temp > 100.7 F Last Admin: 08/12/20 05:10 Dose: 650 mg Documented by: Allopurinol (Allopurinol 100 Mg Tablet) 100 mg PO DAILY@0800 [facility] Last Admin: 08/12/20 08:57 Dose: 100 mg Documented by: Amlodipine Besylate (Amlodipine 10 Mg Tablet) 10 mg PO DAILY [facility] Last Admin: 08/12/20 08:58 Dose: 10 mg Documented by: Aspirin (Aspirin 81 Mg Tab.Chew) 81 mg PO DAILY@0800 [facility] Last Admin: 08/12/20 08:56 Dose: 81 mg Documented by: Atorvastatin Calcium (Atorvastatin Calcium 80 Mg Tablet) 80 mg PO QHS [facility] Last Admin: 08/11/20 20:08 Dose: 80 mg Documented by: Bisacodyl (Bisacodyl 10 Mg Suppository) 10 mg [facility] DAILY PRN PRN Reason: Severe constipation Carvedilol (Carvedilol 6.25 Mg Tablet) 6.25 mg PO BID [facility] Last Admin: 08/12/20 08:57 Dose: 6.25 mg Documented by: Clopidogrel Bisulfate (Clopidogrel Bisulfate 75 Mg Tablet) 75 mg PO QPM [facility] Last Admin: 08/11/20 20:07 Dose: 75 mg Documented by: Duloxetine HCl (Duloxetine Hcl 30 Mg Capsule) 30 mg PO DAILY [facility] Last Admin: 08/12/20 08:57 Dose: 30 mg Documented by: Enoxaparin Sodium (Enoxaparin 40 Mg/0.4 Ml Syringe) 40 mg SC DAILY [facility] Last Admin: 08/12/20 08:57 Dose: 40 mg Documented by: Hydralazine HCl (Hydralazine 20 Mg/Ml Vial) 10 mg IV Q4H PRN PRN PRN Reason: SBP > 160 Last Admin: 08/11/20 02:31 Dose: 10 mg Documented by: Piperacillin Sod/Tazobactam (Sod 3.375 gm/ Sodium Chloride) 50 mls @ 12.5 mls/hr IV Q8 [facility] Last Admin: 08/12/20 05:08 Dose: 12.5 mls/hr Documented by: Insulin Human Lispro (Insulin Lispro 100 Unit/Ml Insuln.Pen) 0 unit SC [facility]; Protocol Last Admin: 08/12/20 06:35 Dose: Not Given Documented by: Losartan Potassium (Losartan Potassium 100 Mg Tablet) 100 mg PO DAILY [facility] Last Admin: 08/12/20 08:57 Dose: 100 mg Documented by: Ondansetron HCl (Ondansetron 4 Mg/2 Ml Vial) 4 mg IV Q8H PRN PRN PRN Reason: NAUSEA/VOMITING Polyethylene Glycol (Polyethylene Glycol 3350 17 Gm Packet) 17 gm PO DAILY [facility] Senna/Docusate Sodium (Senna/Docusate Sodium 1 Tablet) 2 tablet PO BID [facility] Stop: 08/14/20 10:10 Sodium Chloride (0.9% Saline Lock 10 Ml Syringe) 10 - 40 ml IV UD PRN PRN Reason: SALINE FLUSH Last Admin: 08/11/20 16:34 Dose: 10 ml Documented by: Temazepam (Temazepam 15 Mg Capsule) 15 mg PO QHS PRN PRN PRN Reason: INSOMNIA Last Admin: 08/09/20 23:23 Dose: 15 mg Documented by: Tolterodine Tartrate (Tolterodine Tartrate 4 Mg Cap.Sa) 4 mg PO QPM [facility] Last Admin: 08/11/20 20:08 Dose: 4 mg Documented by: Medical Necessity - Tobacco Use Smoking Status: Current every day smoker Tobacco Use: Non-smoker Assessment/Plan All Active Problems Cellulitis (Acute) HLD (hyperlipidemia) (Acute) Ulceration with osteomyelitis left 5th ray s/p debridement on 08/10/2020 Diabetes with peripheral neuropathy Reviewed diagnostic data. Foot much improved. Cultures pending - growing staph aurues, MSSA so far - continue with IV antibiotic - pt on Zosyn at this time, ID/Dr. Maria consulted. Dressing changes left foot: gauze packing, overlying gauze, kerlix and chris dressing - change daily. No weightbearing left foot. Keep left foot elevated. LEAS - noninvasive lower extremity arterial studies were ordered and reviewed - there is noted to be some mild vacular disease left foot - will consult Dr. Moya to see in TCU. Podiatry will continue to follow closely.
--- NOTE | 2020-08-12 11:25 | PCM.TXEXTCAR ---
- Diet 08/10/20 13:25 Diet: Cardiac: Calorie-Controlled Type of Dietary Supplement:: Alex Is pt able to select menu?: Yes How many daily calories?: 1800 calorie - Routine Orders/Code Status Suppository Type: Dulcolax 10mg Suppository Frequency: Daily PRN Routine Lab Work: CBC - Twice weekly as the patient is on aspirin, Plavix and Lovenox DVT dose, BMP - Weekly. - Wound(s) left lateral foot Wound Type: Amputation Dressing Change: Packed with NuGauze - Therapies Weight Bearing: Non weight bearing Extremity Affected:: Bilateral Lower Physical Therapy: Eval and Treat Occupational Therapy: Eval and Treat - Allergies/Procedures Done in Hospital Allergies/Adverse Reactions: Allergies cetirizine [From Zyrtec] Allergy (Severe, Verified 08/09/20 15:49) Swollen lymph glands gabapentin Allergy (Severe, Verified 08/09/20 15:49) Swollen lymph glands pregabalin [From Lyrica] Adverse Reaction (Verified 08/10/20 12:04) Other - Type of Care/Length of Stay Estimated LOS: Convalescent Care Less Than 30 days Type of Care Needed: Skilled Rehab Potential: Good Prognosis: Good - Additional Orders/Day of Discharge Day of Discharge: 08/12/20 - Dietary and Speech Recommendations Dietitian Recommendations/Changes: Continue 1800 yariel/cardiac diet as ordered and will add consistent carbohydrate restriction to current diet order. Will add orange Alex BID w/ meals--breakfast & dinner. - Follow Up Care Primary Care Physician: Alcon Hodge MD [Primary Care Provider] - Please follow up with your Primary Care Physician in: In 2 weeks Please Follow Up With: Sheldon Moya MD When: Bilateral LE atherosclerotic disease in 2 weeks Please Follow Up With: Dio Parosn DPM When: In 2 weeks Please Follow Up With: Khai Maria MD When: As needed for antibiotic
--- NOTE | 2020-08-12 11:31 | CASEMGMT ---
Addendum entered by Lissy Lopez 08/12/20 15:32: SW updated RN that once Mariel is at [facility] to visit pt, pt can discharge to TCU. Addendum entered by Lissy Lopez 08/12/20 14:23: SW received call from physician, pt will discharge to TCU on oral antibiotics today. MARISELA placed a call to Kathy in TCU and updated Edith who answered Kathy's phone. SW in to speak with pt and updated pt on discharge to TCU today. Pt states understanding. Pt gave this worker permission to call his daughter Mariel to update. SW placed a call to Mariel and updated her pt will be discharged to TCU today. SW updated Mariel that TCU isn't allowed visitors at this time so Mariel will not be able to see pt on TCU. Mariel states she will make her way to [facility] to see pt before he goes to TCU. Plan: TCU today [facility] Original Note: Social Work Note SW in to speak with pt. SW updated pt that this worker spoke with pt's daughter yesterday and she would like pt to remain at [facility] TCU. Pt agreeable to [facility] TCU. SW informed pt that TCU will be able to accept pt whenever pt is medically cleared. Pt states understanding. Plan: TCU once medically cleared [facility]
[2020-08-12 11:45] LABS: Bedside Glucose 220 mg/dL (70-110)
[2020-08-12] MEDS: Insulin Lispro 100 UNIT/ML INSULN.PEN SC ×2 (11:49→17:39)
[2020-08-12] MEDS: Senna/Docusate Sodium 1 Tablet 2 TABLET PO (13:47)
[2020-08-12] MEDS: Polyethylene Glycol 3350 17 GM PACKET PO (13:48)
[2020-08-12 15:53] VITALS: BP 159/81; PULSE 61; RESP 16; TEMP 36.8; O2SAT 99
[2020-08-12 16:11] LABS: Bedside Glucose 165 mg/dL (70-110)
--- NOTE | 2020-08-12 16:16 | PCM.HP.ID ---
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 Cardona History of Present Illness: The patient is a 80 year old M with DM neuropathy, presented with several weeks of worsened L lateral foot wound. Has chronic callus, had progressive wound, then one week of redness, bloody drainage, swelling. No fever or chills. No pain. Came to ED, taken to OR 08/10 for 5th ray partial resection. Feeling ok here, on zosyn currently. Full ROS performed and neg except as noted above. - Medical History Past Medical History (Chronic Problems): Chronic Problems Diabetes (Chronic) Peripheral neuropathy (Chronic) CAD (coronary artery disease) (Chronic) Obesity (Chronic) HTN (hypertension) (Chronic) BPH (benign prostatic hyperplasia) (Chronic) Allergies/Adverse Reactions: Allergies cetirizine [From Zyrtec] Allergy (Severe, Verified 08/09/20 15:49) Swollen lymph glands gabapentin Allergy (Severe, Verified 08/09/20 15:49) Swollen lymph glands pregabalin [From Lyrica] Adverse Reaction (Verified 08/10/20 12:04) Other Home Medications: Ambulatory Orders Medication Instructions Recorded Allopurinol 100 mg PO DAILY 08/09/20 Aspirin 81 mg PO DAILY 08/09/20 Atorvastatin Calcium 80 mg PO DAILY 08/09/20 Carvedilol [Coreg (Beta Malissa)] 6.25 mg PO BID 08/09/20 Clopidogrel Bisulfate [Clopidogrel] 75 mg PO DAILY 08/09/20 Losartan Potassium 100 mg PO DAILY 08/09/20 Tolterodine Tartrate [Tolterodine 4 mg PO DAILY 08/09/20 Tartrate ER] metFORMIN HCl [Glucophage] 850 mg PO DAILY 08/09/20 Acetaminophen [Tylenol Tablet] 650 mg PO Q6H PRN PRN tab 08/12/20 Amlodipine [Norvasc] 10 mg PO DAILY tab 08/12/20 Doxycycline 100 mg PO BID 40 Days #80 cap 08/12/20 Duloxetine Hcl [Cymbalta] 30 mg PO DAILY cap 08/12/20 Enoxaparin [Lovenox] 40 mg SC DAILY syringe 08/12/20 Insulin Lispro [Humalog KwikPen] See Protocol SC ACHS insuln.pen 08/12/20 Polyethylene Glycol 3350 [Miralax] 17 gm PO DAILY packet 08/12/20 Senna/Docusate Sodium [Senokot-S] 2 tab PO BID PRN PRN tab 08/12/20 - Social History Tobacco Use: cigarettes Vital Signs Temp Pulse Resp BP Pulse Ox 98.2 F 61 16 159/81 H 99 08/12/20 15:53 08/12/20 15:53 08/12/20 15:53 08/12/20 15:53 08/12/20 15:53 Oxygen Delivery Method Room Air Weight: 98.6 kg Body Mass Index (BMI) 33.0 Microbiology Past 72 Hours 08/10/20 13:38 Gram Stain - Final Bone - 5th Toe Wound Culture - Preliminary Staphylococcus aureus Anaerobic Culture - Preliminary Checking for anaerobes, further studies to follow. 08/10/20 13:38 Gram Stain - Final Tissue - 5th Toe Wound Culture - Final Staphylococcus aureus Anaerobic Culture - Preliminary Checking for anaerobes, further studies to follow. 08/09/20 15:46 Gram Stain - Final Wound Abcess - Aerobic & Anaerobic Swabs Wound Culture - Preliminary Staphylococcus species Anaerobic Culture - Preliminary Checking for anaerobes, further studies to follow. 08/10/20 13:40 Gram Stain - Final Bone - 5th Toe Wound Culture - Preliminary No growth-Final to follow Anaerobic Culture - Preliminary No growth in 48 hours. 08/09/20 20:06 SARS-CoV-2 Antigen (Rapid) - Final Mucosa - Nose Laboratory Tests Past 24 Hrs 08/12/20 08/12/20 06:26 06:26 WBC 7.1 RBC 4.41 L Hgb 12.7 L Hct 38.8 L MCV 88.0 MCH 28.8 MCHC 32.7 RDW Std Deviation 44.0 H RDW Coeff of Betsy 13.6 Plt Count 259 MPV 10.1 Immature Gran % (Auto) 1.100 H Neut % (Auto) 57.6 Lymph % (Auto) 22.7 [place] % (Auto) 9.3 Eos % (Auto) 8.5 H Baso % (Auto) 0.8 Absolute Neuts (auto) 4.1 Absolute Lymphs (auto) 1.60 Nucleated RBC % 0 Sodium 139 Potassium 3.7 Chloride 107 Carbon Dioxide 25.0 Anion Gap 7 BUN 22 H Creatinine 1.07 Estim Creat Clear Calc 53.27 Est GFR (MDRD) Af Amer 85 Est GFR (MDRD) Non-Af 71 BUN/Creatinine Ratio 20.6 H Glucose 150 H Calcium 8.4 L - Other Studies Radiology: [] reviewed Other Studies: [] Route of nutrition/ use of supplements: [] Nutritional Intake: [] IV Site: [] Connors Catheter: [] - Physical Exam General: Alert, Oriented x3, Cooperative, No apparent distress HEENT: Atraumatic, PERRLA, EOMI Neck: Supple, No Nodes Lungs: Clear to auscultation, Normal air movement Cardiovascular: Regular rate, Regular Rhythm Abdomen: Soft, Non Tender, Non-Distended Extremities: No edema Skin: Incision - reviewed photos Musculoskeletal: No Tenderness to Palpation of Joints or Extremities Neurological: Cranial nerves II-XII grossly intact - Assessment/Plan Antibiotics: [] Assessment/Plan: [] Active and Suspected Problems Cellulitis (Acute) HLD (hyperlipidemia) (Acute) mssa L foot osteo with DM neuropathy - now s/p L 5th metatarsal head resection by Dr. Parson. Clearance frag cx neg so far. On zosyn, will narrow abx to po doxy, plan on 6 week total course from date of surgery. No bcx done here, no fever. Will follow, thank you, d/w Dr. Cardona
--- NOTE | 2020-08-12 16:24 | PCM.DC.SUM ---
Discharge Date and Diagnosis - Problem List Patient Problems: Active and Suspected Problems Cellulitis (Acute) HLD (hyperlipidemia) (Acute) Date of Admission: 08/09/20 Date of Discharge: 08/12/20 - Primary Discharge Diagnosis Acute Problems: Active Problems Cellulitis (Acute) HLD (hyperlipidemia) (Acute) - Secondary Discharge Diagnosis Chronic Problems: Chronic Problems Diabetes (Chronic) Peripheral neuropathy (Chronic) CAD (coronary artery disease) (Chronic) Obesity (Chronic) HTN (hypertension) (Chronic) BPH (benign prostatic hyperplasia) (Chronic) Hospital Course and Treatment Consultations 08/09/20 16:49 Consult: Onc/Wound/critical care specialist Routine Comment: Summary of Care Provided: The patient is 80-year-old gentleman is admitted from [place] [facility] for left foot ulcer with purulent drainage and surrounding cellulitis suggestive of diabetic foot ulcer complicated with osteomyelitis.. 1. Acute cellulitis and osteomyelitis of the left foot, fifth metatarsal and proximal phalanx- MRI left foot shows osteomyelitis of fifth metatarsal and proximal phalanx with edema. Patient had debridement of ulcer down to necrotic bone, excision of fifth metatarsal head. Preliminary wound shows MSSA. Tissue culture showing MSSA. In hospital patient treated with IV Zosyn. MRSA PCR negative. Lower extremity arterial study mild calcific occlusive disease on right foot, abnormal right digital brachial index. Moderate atherosclerotic occlusive disease in left foot, left [employer] and dorsalis pedis arteries. Patient is being discharged on doxycycline 100 mg p.o. twice daily as per ID recommendation. Patient is being transferred to TCU. Follow-up vascular surgeon Dr. Moya in TCU for bilateral lower extremity atherosclerotic disease. 2. Dmt2 with obesity, peripheral neuropathy - Diabetes mellitus type 2 with obesity, diabetic neuropathy: A1c 7.2 which he states is good glucose control. 3. CAD - prior stents and bilateral lower extremity atherosclerotic disease- pt on aspirin, plavix, coreg, losartan, statin 4. HTN - continue home meds 5. HLD - statin 6. BPH - detrol 7. depression - zoloft 8. gout - allopurinol DVT ppx: lovenox 40 mils subcu daily for additional 2 weeks unless patient gets severe bleeding or anemia or thrombocytopenia. Discharge medication reconciliation done. Discharge follow-up instructions completed. Discharge process discussed with the patient and all questions were answered to patient's satisfaction. Discharge meds signed. Total time spent, exact 35 minutes on discharge meds reconciliation, examination, coordination of care with nurses and ancillary staff, review of imaging and blood test and discussion with the patient on follow-up instructions Patient Problems: Active and Suspected Problems Cellulitis (Acute) HLD (hyperlipidemia) (Acute) Objective: No fever or chills. Heart rate and blood pressure controlled. General: Alert, Oriented x3, Cooperative HEENT: Atraumatic, PERRLA, EOMI, Normocephalic Oral: No Gingival or Mucosal Lesions/ Ulcerations Neck: Supple, No JVD, Negative Carotid Bruits Lungs: Air entry diminished in bilateral lung bases. No crepitation/rhonchi Cardiovascular: Regular rate, Regular Rhythm, Normal S1, Normal S2, No murmurs Abdomen: Bowel Sounds Present, Soft, Non Tender, Non-Distended : No renal angle tenderness. No suprapubic tenderness. Extremities: Mild left ankle edema, Capillary Refill Less than 3 Seconds. Diminished pulsation on the bilateral [employer] and DPA Skin: Status post debridement of necrotic ulcer with osteomyelitis. Jasmeet wrap bandage. Dressing is dry. Musculoskeletal: No Tenderness to Palpation of Joints or Extremities Neurological: Cranial nerves II-XII grossly intact, Deep Tendon Reflexes 2+/4 and Symmetrical, Neuro grossly intact Psych/Mental Status: Normal Affect, Appropriate - Physical Exam Vitals/I&O's: Vital Signs Temp Pulse Resp BP Pulse Ox 98.3 F 70 18 158/81 H 96 08/12/20 08:48 08/12/20 08:49 08/12/20 08:48 08/12/20 08:48 08/12/20 08:48 Oxygen Delivery Method Room Air Weight: 217 lb 6.012 oz Body Mass Index (BMI) 33.0 Intake and Output for Last 24 Hours 08/10/20 08/11/20 08/12/20 23:59 23:59 23:59 Intake Total 1250 / 1650 700 / 950 350 / 350 Output Total 350 / 850 680 / 1355 1175 / 1175 Balance 900 / 800 20 / -405 -825 / -825 Microbiology Past 72 Hours 08/10/20 13:38 Bone - 5th Toe Gram Stain - Final 08/10/20 13:38 Bone - 5th Toe Wound Culture - Preliminary Staphylococcus aureus 08/10/20 13:38 Bone - 5th Toe Anaerobic Culture - Preliminary Checking for anaerobes, further studies to follow. 08/10/20 13:38 Tissue - 5th Toe Gram Stain - Final 08/10/20 13:38 Tissue - 5th Toe Wound Culture - Final Staphylococcus aureus 08/10/20 13:38 Tissue - 5th Toe Anaerobic Culture - Preliminary Checking for anaerobes, further studies to follow. 08/09/20 15:46 Wound Abcess - Aerobic & Anaerobic Swabs Gram Stain - Final 08/09/20 15:46 Wound Abcess - Aerobic & Anaerobic Swabs Wound Culture - Preliminary Staphylococcus species 08/09/20 15:46 Wound Abcess - Aerobic & Anaerobic Swabs Anaerobic Culture - Preliminary Checking for anaerobes, further studies to follow. 08/10/20 13:40 Bone - 5th Toe Gram Stain - Final 08/10/20 13:40 Bone - 5th Toe Wound Culture - Preliminary No growth-Final to follow 08/10/20 13:40 Bone - 5th Toe Anaerobic Culture - Preliminary No growth in 48 hours. 08/09/20 20:06 Mucosa - Nose SARS-CoV-2 Antigen (Rapid) - Final Laboratory Results 08/11/20 16:29: POC Glucose 187 H 08/11/20 21:35: POC Glucose 196 H 08/12/20 06:26: WBC 7.1, RBC 4.41 L, Hgb 12.7 L, Hct 38.8 L, MCV 88.0, MCH 28.8, MCHC 32.7, RDW Std Deviation 44.0 H, RDW Coeff of Betsy 13.6, Plt Count 259, MPV 10.1, Immature Gran % (Auto) 1.100 H, Neut % (Auto) 57.6, Lymph % (Auto) 22.7, [place] % (Auto) 9.3, Eos % (Auto) 8.5 H, Baso % (Auto) 0.8, Absolute Neuts (auto) 4.1, Absolute Lymphs (auto) 1.60, Nucleated RBC % 0 08/12/20 06:26: Sodium 139, Potassium 3.7, Chloride 107, Carbon Dioxide 25.0, Anion Gap 7, BUN 22 H, Creatinine 1.07, Estim Creat Clear Calc 53.27, Est GFR (MDRD) Af Amer 85, Est GFR (MDRD) Non-Af 71, BUN/Creatinine Ratio 20.6 H, Glucose 150 H, Calcium 8.4 L 08/12/20 06:34: POC Glucose 149 H 08/12/20 11:15: POC Glucose 220 H Current Medications Acetaminophen (Acetaminophen 325 Mg Tablet) 650 mg PO Q6H PRN PRN PRN Reason: Pain Score 1-10/Temp > 100.7 F Last Admin: 08/12/20 05:10 Dose: 650 mg Documented by: Allopurinol (Allopurinol 100 Mg Tablet) 100 mg PO DAILY@0800 [facility] Last Admin: 08/12/20 08:57 Dose: 100 mg Documented by: Amlodipine Besylate (Amlodipine 10 Mg Tablet) 10 mg PO DAILY [facility] Last Admin: 08/12/20 08:58 Dose: 10 mg Documented by: Aspirin (Aspirin 81 Mg Tab.Chew) 81 mg PO DAILY@0800 [facility] Last Admin: 08/12/20 08:56 Dose: 81 mg Documented by: Atorvastatin Calcium (Atorvastatin Calcium 80 Mg Tablet) 80 mg PO QHS [facility] Last Admin: 08/11/20 20:08 Dose: 80 mg Documented by: Bisacodyl (Bisacodyl 10 Mg Suppository) 10 mg RECTAL DAILY PRN PRN Reason: Severe constipation Carvedilol (Carvedilol 6.25 Mg Tablet) 6.25 mg PO BID [facility] Last Admin: 08/12/20 08:57 Dose: 6.25 mg Documented by: Clopidogrel Bisulfate (Clopidogrel Bisulfate 75 Mg Tablet) 75 mg PO QPM [facility] Last Admin: 08/11/20 20:07 Dose: 75 mg Documented by: Duloxetine HCl (Duloxetine Hcl 30 Mg Capsule) 30 mg PO DAILY [facility] Last Admin: 08/12/20 08:57 Dose: 30 mg Documented by: Enoxaparin Sodium (Enoxaparin 40 Mg/0.4 Ml Syringe) 40 mg SC DAILY [facility] Last Admin: 08/12/20 08:57 Dose: 40 mg Documented by: Hydralazine HCl (Hydralazine 20 Mg/Ml Vial) 10 mg IV Q4H PRN PRN PRN Reason: SBP > 160 Last Admin: 08/11/20 02:31 Dose: 10 mg Documented by: Piperacillin Sod/Tazobactam (Sod 3.375 gm/ Sodium Chloride) 50 mls @ 12.5 mls/hr IV Q8 [facility] Last Admin: 08/12/20 13:48 Dose: 12.5 mls/hr Documented by: Insulin Human Lispro (Insulin Lispro 100 Unit/Ml Insuln.Pen) 0 unit SC ACHS [facility]; Protocol Last Admin: 08/12/20 11:49 Dose: 4 u Documented by: Losartan Potassium (Losartan Potassium 100 Mg Tablet) 100 mg PO DAILY [facility] Last Admin: 08/12/20 08:57 Dose: 100 mg Documented by: Ondansetron HCl (Ondansetron 4 Mg/2 Ml Vial) 4 mg IV Q8H PRN PRN PRN Reason: NAUSEA/VOMITING Polyethylene Glycol (Polyethylene Glycol 3350 17 Gm Packet) 17 gm PO DAILY [facility] Last Admin: 08/12/20 13:48 Dose: 17 gm Documented by: Senna/Docusate Sodium (Senna/Docusate Sodium 1 Tablet) 2 tablet PO BID [facility] Stop: 08/14/20 10:10 Last Admin: 08/12/20 13:47 Dose: 2 tablet Documented by: Sodium Chloride (0.9% Saline Lock 10 Ml Syringe) 10 - 40 ml IV UD PRN PRN Reason: SALINE FLUSH Last Admin: 08/11/20 16:34 Dose: 10 ml Documented by: Temazepam (Temazepam 15 Mg Capsule) 15 mg PO QHS PRN PRN PRN Reason: INSOMNIA Last Admin: 08/09/20 23:23 Dose: 15 mg Documented by: Tolterodine Tartrate (Tolterodine Tartrate 4 Mg Cap.Sa) 4 mg PO QPM [facility] Last Admin: 08/11/20 20:08 Dose: 4 mg Documented by: Home Medications: Medications to take at Discharge Allopurinol 100 mg PO DAILY 08/09/20 Aspirin 81 mg PO DAILY 08/09/20 Atorvastatin Calcium 80 mg PO DAILY 08/09/20 Carvedilol [Coreg (Beta Malissa)] 6.25 mg PO BID 08/09/20 Clopidogrel Bisulfate [Clopidogrel] 75 mg PO DAILY 08/09/20 Losartan Potassium 100 mg PO DAILY 08/09/20 Tolterodine Tartrate [Tolterodine Tartrate ER] 4 mg PO DAILY 08/09/20 metFORMIN HCl [Glucophage] 850 mg PO DAILY 08/09/20 Acetaminophen [Tylenol Tablet] 650 mg PO Q6H PRN PRN tab 08/12/20 Amlodipine [Norvasc] 10 mg PO DAILY tab 08/12/20 Duloxetine Hcl [Cymbalta] 30 mg PO DAILY cap 08/12/20 Enoxaparin [Lovenox] 40 mg SC DAILY syringe 08/12/20 Insulin Lispro [Humalog KwikPen] See Protocol SC ACHS insuln.pen 08/12/20 Polyethylene Glycol 3350 [Miralax] 17 gm PO DAILY packet 08/12/20 Senna/Docusate Sodium [Senokot-S] 2 tab PO BID PRN PRN tab 08/12/20 Primary Care Physician: Alcon Hodge MD [Primary Care Provider] - Please follow up with your Primary Care Physician in: In 2 weeks Please Follow Up With: Sheldon Moya MD When: Bilateral LE atherosclerotic disease in 2 weeks Please Follow Up With: Dio Parson DPM When: In 2 weeks Please Follow Up With: Khai Maria MD When: As needed for antibiotic Medical Necessity - Tobacco Use Smoking Status: Current every day smoker Tobacco Use: Non-smoker Meaningful Use Info Meaningful Use Diagnoses (Choose all that apply): None applicable Inpatient E&M: [id number] [facility]
== END 2020-08-12 19:00 | disposition skilled nursing facility (03) | DRG 629 ==
PROVIDERS: Anesthesiology; Podiatrist; Admitting Provider Internal Medicine; PCP Internal Medicine Pulmonary Disease; Visit Provider Internal Medicine
PROC: 0QBP0ZZ Excision of Left Metatarsal, Open Approach (ICD-10-PCS; principal; 2020-08-10 12:20)
DX: E11.621 Type 2 diabetes mellitus with foot ulcer (principal); L03.116 Cellulitis of left lower limb; M86.9 Osteomyelitis, unspecified; E11.69 Type 2 diabetes mellitus with other specified complication; L97.524 Non-pressure chronic ulcer of other part of left foot with necrosis of bone; A49.01 Methicillin susceptible Staphylococcus aureus infection, unspecified site; E11.42 Type 2 diabetes mellitus with diabetic polyneuropathy; E11.51 Type 2 diabetes mellitus with diabetic peripheral angiopathy without gangrene; E78.5 Hyperlipidemia, unspecified; I25.10 Atherosclerotic heart disease of native coronary artery without angina pectoris; E66.9 Obesity, unspecified; I10 Essential (primary) hypertension; N40.0 Benign prostatic hyperplasia without lower urinary tract symptoms; F32.9 Major depressive disorder, single episode, unspecified; M10.9 Gout, unspecified; Z79.02 Long term (current) use of antithrombotics/antiplatelets; Z79.82 Long term (current) use of aspirin; Z95.5 Presence of coronary angioplasty implant and graft; Z88.8 Allergy status to other drugs, medicaments and biological substances; F17.200 Nicotine dependence, unspecified, uncomplicated; Z68.33 Body mass index [BMI] 33.0-33.9, adult
CPT/HCPCS: 36415; 73630; 73718; 80048; 82962; 83036; 85025; 87070; 87075; 87077; 87102; 87176; 87186; 87205; 87206; 87426; 87640; 88305; 88311; 93005; 93923; 97802; J7030; A4216

== ENCOUNTER 2020-08-12 19:25 | Inpatient (IN) | payer MEDICARE, BC, SELFPAY ==
[2020-08-10 09:24] VITALS: BMI 33.0
[2020-08-12 19:29] VITALS: BP 162/83; PULSE 80; RESP 20; TEMP 36.4; O2SAT 96; BMI 32.5
[2020-08-12 19:54] VITALS: BMI 32.5
[2020-08-12] MEDS: Atorvastatin Calcium 80 MG Tablet PO (21:26)
[2020-08-12] MEDS: Doxycycline 100 MG CAPSULE PO (21:26)
[2020-08-12 21:31] LABS: Bedside Glucose 228 mg/dL (70-110)
--- NOTE | 2020-08-12 21:45 | PCM.HP.STD ---
Problem List (1) Debility Status: Acute (2) Ulcer of left foot due to type 2 diabetes mellitus Status: Acute (3) Cellulitis of left foot Status: Acute (4) Osteomyelitis of left foot Status: Acute (5) Gout Status: Chronic (6) Overactive bladder Status: Chronic (7) Peripheral arterial occlusive disease Status: Chronic (8) Diabetic polyneuropathy Status: Chronic (9) Body mass index 32.0-32.9, adult Status: Chronic (10) Tobacco abuse Status: Chronic (11) Diabetes Status: Chronic (12) CAD (coronary artery disease) Status: Chronic (13) HTN (hypertension) Status: Chronic (14) HLD (hyperlipidemia) Status: Chronic (15) BPH (benign prostatic hyperplasia) Status: Chronic History of Present Illness Date of Admission: 08/12/20 Chief Complaint: Here for rehabilitation, strengthening, wound care prior to discharge home with daughter. 08/09/2020 The patient is a 80 year old Male with below past medical history admitted to [facility] from outside ER. 08/09/2020 [place] doppler showed right lower extremity mild peripheral arterial occlusive disease. Left lower extremity moderate peripheral arterial occlusive disease. Fever 100.3, infected left foot wound. Wound culture sent. Zosyn IV for left foot cellulitis. MRI left foot to evaluate for osteomyelitis, X-ray negative for osteomyelitis. Consult podiatry for left foot wound. 08/09/2020 MRI left forefoot showed edema, osteomyelitis 5th metatarsal, proximal phalanx. 08/10/2020 Podiatry performed left foot debridement of ulcer down to necrotic bone, Excision of 5th metatarsal head. 08/10/2020 Wound culture growing MSSA, continue IV Zosyn. 08/11/2020 MRSA PCR negative, continue IV Zosyn. 08/12/2020 ID recommended transitioning from IV Zosyn to Doxycycline 100MG twice daily. Follow up with Dr. Moya for bilateral lower extremity peripheral arterial occlusive disease. 08/12/2020 Admit to TCU with debility, rehabilitation, wound care, prior to discharge home with daughter. Past Medical History Past Medical History (Chronic Problems): Chronic Problems Diabetes (Chronic) Peripheral neuropathy (Chronic) CAD (coronary artery disease) (Chronic) Obesity (Chronic) HTN (hypertension) (Chronic) HLD (hyperlipidemia) (Chronic) BPH (benign prostatic hyperplasia) (Chronic) Gout (Chronic) Overactive bladder (Chronic) Peripheral arterial occlusive disease (Chronic) Diabetic polyneuropathy (Chronic) Body mass index 32.0-32.9, adult (Chronic) Tobacco abuse (Chronic) Allergies cetirizine [From Zyrtec] Allergy (Severe, Verified 08/09/20 15:49) Swollen lymph glands gabapentin Allergy (Severe, Verified 08/09/20 15:49) Swollen lymph glands pregabalin [From Lyrica] Adverse Reaction (Verified 08/10/20 12:04) Other Home Medications: Ambulatory Orders Medication Instructions Recorded Allopurinol 100 mg PO DAILY 08/09/20 Aspirin 81 mg PO DAILY 08/09/20 Atorvastatin Calcium 80 mg PO DAILY 08/09/20 Carvedilol [Coreg (Beta Malissa)] 6.25 mg PO BID 08/09/20 Clopidogrel Bisulfate [Clopidogrel] 75 mg PO DAILY 08/09/20 Losartan Potassium 100 mg PO DAILY 08/09/20 Tolterodine Tartrate [Tolterodine 4 mg PO DAILY 08/09/20 Tartrate ER] metFORMIN HCl [Glucophage] 850 mg PO DAILY 08/09/20 Acetaminophen [Tylenol Tablet] 650 mg PO Q6H PRN PRN tab 08/12/20 Amlodipine [Norvasc] 10 mg PO DAILY 08/12/20 Doxycycline 100 mg PO BID 08/12/20 Duloxetine Hcl [Cymbalta] 30 mg PO DAILY 08/12/20 Enoxaparin [Lovenox] 40 mg SC DAILY 08/12/20 Insulin Lispro [Humalog KwikPen] See Protocol SC ACHS 08/12/20 Polyethylene Glycol 3350 [Miralax] 17 gm PO DAILY 08/12/20 Senna/Docusate Sodium [Senokot-S] 2 tab PO BID PRN PRN tab 08/12/20 Surgical History: angioplasty - cardiac stents x 5., rotator cuff repair - Right., - - Left foot ulcer debridement, left foot excision 5th metatarsal head, left foot tendon surgery, Eye surgery. Psychiatric History: No pertinent psych hx Lives: With Family - Daughter. Smoking Status: Current every day smoker Tobacco Use: Cigarettes Alcohol: None Drugs: None - *Family History Maternal History Items: No pertinent history Paternal History Items: No pertinent history Review of Systems Constitutional: Denies: Chills, Fever, Weight Change HEENT: Denies: Head Aches, Sinus Congestion, Sinus Drainage Cardiovascular: Denies: Chest Pain, Palpitations Respiratory: Denies: Cough, Shortness of breath at rest, Sputum production Gastrointestinal: Denies: Abdominal Pain, Nausea, Vomiting Genitourinary: Denies: Dysuria Musculoskeletal: Denies: Joint Pain, Joint Tenderness Skin: Denies: Rash, Wounds Neurological: Denies: Numbness, Tingling, Focal weakness Psychiatric: Denies: Anxiety, Depression, Homicidal Ideations, Suicidal Ideations Hematologic/ Lymphatic: Denies: Easy Bruising, Easy Bleeding VTE Information - Inpt Only VTE Present on Admission: No VTE Mechan Device Prophylaxis: Knee High ROSARIO Hose VTE Pharm Prophylaxis ordered?: No Reason prophylaxis not ordered:: Treatment Not Indicated Patient Problems: Active and Suspected Problems Debility (Acute) Ulcer of left foot due to type 2 diabetes mellitus (Acute) Cellulitis of left foot (Acute) Osteomyelitis of left foot (Acute) - Physical Exam Vitals/I&O's: Weight: 97.069 kg Body Mass Index (BMI) 32.5 General: Alert, Oriented x3, Cooperative HEENT: Atraumatic, PERRLA, EOMI, Normocephalic Neck: Supple, No JVD, Negative Carotid Bruits Lungs: Clear to auscultation, Normal air movement Cardiovascular: Regular rate, No murmurs Abdomen: Bowel Sounds Present, Soft, Non Tender Extremities: No edema, Capillary Refill Less than 3 Seconds, - - Left foot dressed. Skin: No rashes, No breakdown Musculoskeletal: No Tenderness to Palpation of Joints or Extremities Neurological: Cranial nerves II-XII grossly intact Psych/Mental Status: Normal Affect, Appropriate Laboratory Results 08/12/20 21:23: POC Glucose 228 H Current Medications Acetaminophen (Acetaminophen 325 Mg Tablet) 650 mg PO Q6H PRN PRN PRN Reason: Pain Score 1-10/Temp > 100.7 F Allopurinol ([facility] 100 Mg Tablet) [facility] Amlodipine Besylate (Amlodipine 10 Mg Tablet) 10 mg PO DAILY [facility] Aspirin (Aspirin 81 Mg Tab.Chew) [facility] Atorvastatin Calcium (Atorvastatin Calcium 80 Mg Tablet) 80 mg PO QHS [facility] Last Admin: 08/12/20 21:26 Dose: 80 mg Documented by: Carvedilol (Carvedilol 6.25 Mg Tablet) 6.25 mg PO BID [facility] Clopidogrel Bisulfate (Clopidogrel Bisulfate 75 Mg Tablet) 75 mg PO DAILY [facility] Doxycycline Monohydrate (Doxycycline 100 Mg Capsule) 100 mg PO BID@1000,2200 [facility] Last Admin: 08/12/20 21:26 Dose: 100 mg Documented by: Duloxetine HCl (Duloxetine Hcl 30 Mg Capsule) 30 mg PO DAILY [facility] Enoxaparin Sodium (Enoxaparin 40 Mg/0.4 Ml Syringe) 40 mg SC DAILY [facility] Insulin Human Lispro (Insulin Lispro 100 Unit/Ml Insuln.Pen) [address] [facility]; Protocol Losartan Potassium (Losartan Potassium 100 Mg Tablet) 100 mg PO DAILY [facility] Metformin HCl (Metformin Hcl 850 Mg Tablet) 850 mg PO DAILY@0800 [facility] Polyethylene Glycol (Polyethylene Glycol 3350 17 Gm Packet) 17 gm PO DAILY [facility] Senna/Docusate Sodium (Senna/Docusate Sodium 1 Tablet) 2 tablet PO BID PRN PRN PRN Reason: Constipation Tolterodine Tartrate (Tolterodine Tartrate 4 Mg Cap.Sa) 4 mg PO DAILY [facility] Tuberculin PPD (Tuberculin,Purif.Prot.Deriv. 50 Tu/Ml Vial) 5 tu ID X1 ONE Stop: 08/13/20 10:01 Tuberculin PPD (Tuberculin,Purif.Prot.Deriv. 50 Tu/Ml Vial) 5 tu ID X1 ONE Stop: 08/20/20 10:01 Assessment/Plan All Active Problems Cellulitis (Acute) Osteomyelitis due to Staphylococcus aureus (Acute) Debility (Acute) Ulcer of left foot due to type 2 diabetes mellitus (Acute) Cellulitis of left foot (Acute) Osteomyelitis of left foot (Acute) 80 year old male with below past medical history hospitalized for left foot osteomyelitis, underwent left foot ulcer debridement, excision left 5th metatarsal head 08/10/2020, admitted to TCU with debility, here for rehabilitation, strengthening, wound care, prior to discharge home with daughter. Debility - PT/OT. Pain - Tylenol 1000MG Q6H PRN pain (1-10). Bowel - Miralax 17GM daily, Senna/colace 2 tablets BID PRN. Adult immunization - Administer Prevnar 13, Pneumovax 23, Fluzone, COVID19 vaccine as appropriate. DVT prophylaxis - Hold, already on dual antiplatelet therapy. Gout - Allopurinol 100MG daily. Hypertension - Coreg 6.25MG BID, Losartan 100MG daily, Amlodipine 10MG daily. Coronary artery disease status post stents x 5 - Coreg 6.25MG BID, Losartan 100MG daily, Plavix 75MG daily, Aspirin 81MG daily. MSSA left foot osteomyelitis - Doxycycline 100MG twice daily thru 09/21/2020. Diabetic polyneuropathy - Duloxetine 30MG daily. Diabetes Mellitus II - Metformin 850MG daily, monitor blood sugar, add insulin as necessary. Overactive bladder - Tolterodine 4MG daily. Peripheral artery occlusive disease - outpatient follow up with Dr. Moya.
[2020-08-12] MEDS: Insulin Lispro 100 UNIT/ML INSULN.PEN SC (22:07)
[2020-08-12 22:11] LABS: Bedside Glucose 176 mg/dL (70-110)
[2020-08-13 04:00] VITALS: BP 156/84; PULSE 79; RESP 18; TEMP 36.6; O2SAT 90
[2020-08-13] MEDS: Polyethylene Glycol 3350 17 GM PACKET PO (05:15)
[2020-08-13] MEDS: Losartan Potassium 100 MG Tablet PO (05:16)
[2020-08-13] MEDS: DULoxetine Hcl 30 MG Capsule PO (05:16)
[2020-08-13] MEDS: Carvedilol 6.25 MG Tablet PO ×2 (05:16→16:59)
[2020-08-13] MEDS: Clopidogrel Bisulfate 75 MG Tablet PO (05:16)
[2020-08-13] MEDS: Tolterodine Tartrate 4 MG CAP.SA PO (05:16)
[2020-08-13] MEDS: amLODIPine 10 MG Tablet PO (05:16)
[2020-08-13 06:17] LABS: Bedside Glucose 210 mg/dL (70-110)
[2020-08-13 06:24] LABS: Absolute Lymphocyte Count 1.64 X10^3/uL (0.83-4.51); Basophil# 0.03 X10^3/uL; Basophil% 0.4 % (0-1); Eosinophil# 0.47 X10^3/uL; Eosinophils% 5.9 % (0-5); Hematocrit 40.5 % (40-54); Hemoglobin 12.9 g/dL (13.0-16.5); Lymphocyte # 1.64 X10^3/ul (4.0); Lymphocyte % 20.6 % (19-41); Mean Corp Hgb Conc 31.9 g/dL (32-36); Mean Corpuscular Hgb 28.2 pg (27.0-32.0); Mean Corpuscular Volume 88.6 fL (80-94); Mean Platelet Vol. 10.7 fl (6.2-12.0); Monocyte% 8.8 % (0-10); NRBC Flagged by Analyzer 0 % (0-5); Neutrophil # 5.04 X10^3/uL (2.7-7.7); Neutrophil % 63.3 % (47-70); Platelet Count 273 K/mm3 (150-450); RBC Distribution Width CV 13.8 % (11.6-14.6); RBC Distribution Width SD 44.7 fl (35.1-43.9); Red Blood Count 4.57 M/mm3 (4.6-6.2)
[2020-08-13 06:54] LABS: Anion Gap 8 (5-15); BUN 24 mg/dL (7-18); Calcium,Total 8.9 mg/dL (8.5-10.1); Chloride 107 mmol/L (98-107); EST Glomerular Filtration Rate 76 mL/min (>60); Est Glom Filt Rate - Afr Amer 92 mL/min (>60); Glucose 150 mg/dL (74-106); Potassium 3.6 mmol/L (3.5-5.1); Sodium Level 139 mmol/L (136-145)
[2020-08-13] MEDS: Aspirin 81 MG TAB.CHEW PO (08:12)
[2020-08-13] MEDS: Allopurinol 100 MG Tablet PO (08:12)
[2020-08-13] MEDS: metFORMIN HCl 850 MG Tablet PO (08:12)
[2020-08-13] MEDS: Doxycycline 100 MG CAPSULE PO ×2 (09:39→20:41)
[2020-08-13 10:00] VITALS: RESP 16
[2020-08-13] MEDS: Tuberculin,Purif.prot.deriv. 50 TU/ML Vial 5 ML ID (10:11)
[2020-08-13 10:46] LABS: Bedside Glucose 212 mg/dL (70-110)
[2020-08-13 13:36] VITALS: BP 142/66; PULSE 78; RESP 16; TEMP 36.2; O2SAT 95
[2020-08-13 16:51] LABS: Bedside Glucose 185 mg/dL (70-110)
[2020-08-13] MEDS: Atorvastatin Calcium 80 MG Tablet PO (20:42)
[2020-08-13 21:21] LABS: Bedside Glucose 165 mg/dL (70-110)
[2020-08-14 05:37] VITALS: BP 145/68; PULSE 68; RESP 18; TEMP 36.7; O2SAT 91
[2020-08-14] MEDS: Polyethylene Glycol 3350 17 GM PACKET PO (05:38)
[2020-08-14] MEDS: Losartan Potassium 100 MG Tablet PO (05:38)
[2020-08-14] MEDS: Carvedilol 6.25 MG Tablet PO ×2 (05:38→17:06)
[2020-08-14] MEDS: Tolterodine Tartrate 4 MG CAP.SA PO (05:38)
[2020-08-14] MEDS: amLODIPine 10 MG Tablet PO (05:39)
[2020-08-14] MEDS: Clopidogrel Bisulfate 75 MG Tablet PO (05:39)
[2020-08-14] MEDS: DULoxetine Hcl 30 MG Capsule PO (05:39)
[2020-08-14 06:20] LABS: Bedside Glucose 189 mg/dL (70-110)
[2020-08-14] MEDS: Allopurinol 100 MG Tablet PO (07:50)
[2020-08-14] MEDS: Aspirin 81 MG TAB.CHEW PO (07:50)
[2020-08-14] MEDS: metFORMIN HCl 850 MG Tablet PO (07:50)
[2020-08-14] MEDS: Doxycycline 100 MG CAPSULE PO ×2 (09:13→20:33)
[2020-08-14 10:41] LABS: Bedside Glucose 244 mg/dL (70-110)
[2020-08-14 14:22] VITALS: BP 148/74; PULSE 72; RESP 16; TEMP 36.4; O2SAT 95
[2020-08-14 15:55] LABS: Bedside Glucose 178 mg/dL (70-110)
[2020-08-14] MEDS: Atorvastatin Calcium 80 MG Tablet PO (20:33)
[2020-08-14 20:37] VITALS: PULSE 73; RESP 16; O2SAT 96
[2020-08-14 21:30] LABS: Bedside Glucose 190 mg/dL (70-110)
[2020-08-15 01:21] VITALS: BP 176/76; PULSE 73; RESP 16; TEMP 36.6; O2SAT 96
[2020-08-15] MEDS: Tolterodine Tartrate 4 MG CAP.SA PO (05:23)
[2020-08-15] MEDS: DULoxetine Hcl 30 MG Capsule PO (05:23)
[2020-08-15] MEDS: Clopidogrel Bisulfate 75 MG Tablet PO (05:23)
[2020-08-15] MEDS: Losartan Potassium 100 MG Tablet PO (05:23)
[2020-08-15] MEDS: Carvedilol 6.25 MG Tablet PO ×2 (05:23→17:32)
[2020-08-15] MEDS: amLODIPine 10 MG Tablet PO (05:23)
[2020-08-15] MEDS: Polyethylene Glycol 3350 17 GM PACKET PO (05:25)
[2020-08-15 06:16] LABS: Bedside Glucose 222 mg/dL (70-110)
[2020-08-15] MEDS: metFORMIN HCl 850 MG Tablet PO (08:48)
[2020-08-15] MEDS: Allopurinol 100 MG Tablet PO (08:48)
[2020-08-15] MEDS: Aspirin 81 MG TAB.CHEW PO (08:48)
[2020-08-15] MEDS: Doxycycline 100 MG CAPSULE PO ×2 (08:54→21:33)
[2020-08-15 09:45] VITALS: PULSE 65; RESP 18; O2SAT 95
--- NOTE | 2020-08-15 10:53 | PHA.CONS_ITS ---
<Shelby Marin - Last Filed: 08/15/20 10:53> Progress Note - Pharmacy Subjective: TCU Admission Objective: Allergies cetirizine [From Zyrtec] Allergy (Severe, Verified 08/09/20 15:49) Swollen lymph glands gabapentin Allergy (Severe, Verified 08/09/20 15:49) Swollen lymph glands pregabalin [From Lyrica] Adverse Reaction (Verified 08/10/20 12:04) Other Current Medications Generic Name Dose Route Start Last Admin Trade Name Freq PRN Reason Stop Dose Admin Acetaminophen 1,000 mg 08/12/20 22:12 Acetaminophen 500 Mg Tablet PO Q6H PRN PRN Pain Score 1-10 Allopurinol 100 mg 08/13/20 08:00 08/15/20 08:48 Allopurinol 100 Mg Tablet PO 100 mg DAILYCM [facility] Administration Amlodipine Besylate 10 mg 08/13/20 06:00 08/15/20 05:23 Amlodipine 10 Mg Tablet PO 10 mg DAILY [facility] Administration Aspirin 81 mg 08/13/20 08:00 08/15/20 08:48 Aspirin 81 Mg Tab.Chew PO 81 mg DAILYCM JAMIA Administration Atorvastatin Calcium 80 mg 08/12/20 22:00 08/14/20 20:33 Atorvastatin Calcium 80 Mg Tablet PO 80 mg QHS [facility] Administration Calamine/Phenol 1 applic 08/15/20 22:00 Menthol/Lanolin/Calamine/Znox 113 Gm Tube TOPICAL 0600,2200 [facility] Protocol Carvedilol 6.25 mg 08/13/20 06:00 08/15/20 05:23 Carvedilol 6.25 Mg Tablet PO 6.25 mg BID [facility] Administration Clopidogrel Bisulfate 75 mg 08/13/20 06:00 08/15/20 05:23 Clopidogrel Bisulfate 75 Mg Tablet PO 75 mg DAILY [facility] Administration Doxycycline Monohydrate 100 mg 08/12/20 22:00 08/15/20 08:54 Doxycycline 100 Mg Capsule PO 09/21/20 23:59 100 mg BID@1000,2200 [facility] Administration Duloxetine HCl 30 mg 08/13/20 06:00 08/15/20 05:23 Duloxetine Hcl 30 Mg Capsule PO 30 mg DAILY [facility] Administration Losartan Potassium 100 mg 08/13/20 06:00 08/15/20 05:23 Losartan Potassium 100 Mg Tablet PO 100 mg DAILY [facility] Administration Metformin HCl 850 mg 08/13/20 08:00 08/15/20 08:48 Metformin Hcl 850 Mg Tablet PO 850 mg DAILY@0800 [facility] Administration Nystatin 1 applic 08/15/20 18:00 Nystatin Powder 15gm Bottle TOPICAL BID [facility] Protocol Polyethylene Glycol 17 gm 08/13/20 06:00 08/15/20 05:25 Polyethylene Glycol 3350 17 Gm Packet PO 17 gm DAILY [facility] Administration Povidone Iodine 1 packet 08/15/20 10:00 Povidone-Iodine Swabstick TOPICAL 1000 [facility] Protocol Senna/Docusate Sodium 2 tablet 08/12/20 19:40 Senna/Docusate Sodium 1 Tablet PO BID PRN PRN Constipation Tolterodine Tartrate 4 mg 08/13/20 06:00 08/15/20 05:23 Tolterodine Tartrate 4 Mg Cap.Sa PO 4 mg DAILY [facility] Administration Tuberculin PPD 5 tu 08/20/20 10:00 Tuberculin,Purif.Prot.Deriv. 50 Tu/Ml Vial ID 08/20/20 10:01 X1 ONE Problem List Diabetes (Chronic) CAD (coronary artery disease) (Chronic) HTN (hypertension) (Chronic) HLD (hyperlipidemia) (Chronic) BPH (benign prostatic hyperplasia) (Chronic) Debility (Acute) Ulcer of left foot due to type 2 diabetes mellitus (Acute) Cellulitis of left foot (Acute) Osteomyelitis of left foot (Acute) Gout (Chronic) Overactive bladder (Chronic) Peripheral arterial occlusive disease (Chronic) Diabetic polyneuropathy (Chronic) Body mass index 32.0-32.9, adult (Chronic) Tobacco abuse (Chronic) Vital Signs Temp Pulse Resp BP Pulse Ox 97.8 F 73 16 176/76 H 96 08/15/20 01:21 08/15/20 01:21 08/15/20 01:21 08/15/20 01:21 08/15/20 01:21 Oxygen Delivery Method Room Air Weight: 97.069 kg Body Mass Index (BMI) 32.5 Sodium 139 mmol/L (136-145) 08/13/20 05:05 Potassium 3.6 mmol/L (3.5-5.1) 08/13/20 05:05 Chloride 107 mmol/L (98-107) 08/13/20 05:05 Carbon Dioxide 24.0 mmol/L (21.0-32.0) 08/13/20 05:05 Anion Gap 8 (5-15) 08/13/20 05:05 BUN 24 mg/dL (7-18) H 08/13/20 05:05 Creatinine 1.00 mg/dL (0.70-1.30) 08/13/20 05:05 Est GFR (MDRD) Af Amer 92 mL/min (>60) 08/13/20 05:05 Est GFR (MDRD) Non-Af 76 mL/min (>60) 08/13/20 05:05 BUN/Creatinine Ratio 24.0 RATIO (10-20) H 08/13/20 05:05 Glucose 150 mg/dL (74-106) H 08/13/20 05:05 Assessment/Plan: 1. Pain: acetaminophen 1000mg PO Q6H PRN pain 1-10. Please continue to monitor for increased pain and PRN usage. 2. MSSA left foot osteomyelitis: doxycycline 100mg PO BID thru 09/21/20. Please continue to monitor for S/S of infection and diarrhea. 3. Hypertension/CAD s/p stents x 5: carvedilol 6.25mg PO BID, losartan 100mg PO daily, amlodipine 10mg PO daily, clopidogrel 75mg PO daily, and aspirin 81mg PO DAILYCM. Please continue to monitor HR (last 73), BP (last 176/76), renal function, edema, and S/S of bleeding. 4. Gout: allopurinol 100mg PO daily. Please continue to monitor for S/S of gout and renal function. 5. Diabetes mellitus II: metformin 850mg PO DAILYCM. Please continue to monitor hemoglobin A1c (last 7.2%), renal function, and blood glucose. 6. Overactive bladder: tolterodine 4mg PO daily. Please continue to monitor for dry mouth and dizziness. *7. Hyperlipidemia: atorvastatin 80mg PO QHS. Please consider ordering a lipid panel. Patient does not have one in chart. Thanks. Please continue to monitor for muscle pain. Psychotropic Medications: *1. Diabetic polyneuropathy: duloxetine 30mg PO daily. Please consider GDR by 02/2021 if clinically appropriate. Thanks. Unnecessary Medications: None Bowel Regimen: Miralax 17gm PO daily and senna/docusate 2T PO BID PRN constipation. Please continue to monitor for S/S of constipation and PRN usage. Date of Note:: 08/15/20 - Provider Comments Provider responsibility: Provider responsible to enter orders to implement recommendations <Diony Billy Chi - Last Filed: 08/15/20 15:33> Progress Note - Pharmacy Subjective: [] Objective: Allergies cetirizine [From Zyrtec] Allergy (Severe, Verified 08/09/20 15:49) Swollen lymph glands gabapentin Allergy (Severe, Verified 08/09/20 15:49) Swollen lymph glands pregabalin [From Lyrica] Adverse Reaction (Verified 08/10/20 12:04) Other Current Medications Generic Name Dose Route Start Last Admin Trade Name Freq PRN Reason Stop Dose Admin Acetaminophen 1,000 mg 08/12/20 22:12 Acetaminophen 500 Mg Tablet PO Q6H PRN PRN Pain Score 1-10 Allopurinol 100 mg 08/13/20 08:00 08/15/20 08:48 Allopurinol 100 Mg Tablet PO 100 mg DAILYCM JAMIA Administration Amlodipine Besylate 10 mg 08/13/20 06:00 08/15/20 05:23 Amlodipine 10 Mg Tablet PO 10 mg DAILY [facility] Administration Aspirin 81 mg 08/13/20 08:00 08/15/20 08:48 Aspirin 81 Mg Tab.Chew PO 81 mg DAILYCM J[facility]IA Administration Atorvastatin Calcium 80 mg 08/12/20 22:00 08/14/20 20:33 Atorvastatin Calcium 80 Mg Tablet PO 80 mg QHS [facility] Administration Calamine/Phenol 1 applic 08/15/20 22:00 Menthol/Lanolin/Calamine/Znox 113 Gm Tube TOPICAL 0600,2200 [facility] Protocol Carvedilol 6.25 mg 08/13/20 06:00 08/15/20 05:23 Carvedilol 6.25 Mg Tablet PO 6.25 mg BID [facility] Administration Clopidogrel Bisulfate 75 mg 08/13/20 06:00 08/15/20 05:23 Clopidogrel Bisulfate 75 Mg Tablet PO 75 mg DAILY [facility] Administration Doxycycline Monohydrate 100 mg 08/12/20 22:00 08/15/20 08:54 Doxycycline 100 Mg Capsule PO 09/21/20 23:59 100 mg BID@1000,2200 [facility] Administration Duloxetine HCl 30 mg 08/13/20 06:00 08/15/20 05:23 Duloxetine Hcl 30 Mg Capsule PO 30 mg DAILY [facility] Administration Losartan Potassium 100 mg 08/13/20 06:00 08/15/20 05:23 Losartan Potassium 100 Mg Tablet PO 100 mg DAILY [facility] Administration Metformin HCl 850 mg 08/13/20 08:00 08/15/20 08:48 Metformin Hcl 850 Mg Tablet PO 850 mg DAILY@0800 [facility] Administration Nystatin 1 applic 08/15/20 18:00 Nystatin Powder 15gm Bottle TOPICAL BID [facility] Protocol Polyethylene Glycol 17 gm 08/13/20 06:00 08/15/20 05:25 Polyethylene Glycol 3350 17 Gm Packet PO 17 gm DAILY [facility] Administration Povidone Iodine 1 packet 08/15/20 10:00 08/15/20 13:10 Povidone-Iodine Swabstick TOPICAL 1 packet 1000 [facility] Administration Protocol Senna/Docusate Sodium 2 tablet 08/12/20 19:40 Senna/Docusate Sodium 1 Tablet PO BID PRN PRN Constipation Tolterodine Tartrate 4 mg 08/13/20 06:00 08/15/20 05:23 Tolterodine Tartrate 4 Mg Cap.Sa PO 4 mg DAILY [facility] Administration Tuberculin PPD 5 tu 08/20/20 10:00 Tuberculin,Purif.Prot.Deriv. 50 Tu/Ml Vial ID 08/20/20 10:01 X1 ONE Problem List Diabetes (Chronic) CAD (coronary artery disease) (Chronic) HTN (hypertension) (Chronic) HLD (hyperlipidemia) (Chronic) BPH (benign prostatic hyperplasia) (Chronic) Debility (Acute) Ulcer of left foot due to type 2 diabetes mellitus (Acute) Cellulitis of left foot (Acute) Osteomyelitis of left foot (Acute) Gout (Chronic) Overactive bladder (Chronic) Peripheral arterial occlusive disease (Chronic) Diabetic polyneuropathy (Chronic) Body mass index 32.0-32.9, adult (Chronic) Tobacco abuse (Chronic) Vital Signs Temp Pulse Resp BP Pulse Ox 96.8 F L 73 20 H 117/58 L 97 08/15/20 14:26 08/15/20 14:26 08/15/20 14:26 08/15/20 14:26 08/15/20 14:26 Oxygen Delivery Method Room Air Weight: 97.069 kg Body Mass Index (BMI) 32.5 Sodium 139 mmol/L (136-145) 08/13/20 05:05 Potassium 3.6 mmol/L (3.5-5.1) 08/13/20 05:05 Chloride 107 mmol/L (98-107) 08/13/20 05:05 Carbon Dioxide 24.0 mmol/L (21.0-32.0) 08/13/20 05:05 Anion Gap 8 (5-15) 08/13/20 05:05 BUN 24 mg/dL (7-18) H 08/13/20 05:05 Creatinine 1.00 mg/dL (0.70-1.30) 08/13/20 05:05 Est GFR (MDRD) Af Amer 92 mL/min (>60) 08/13/20 05:05 Est GFR (MDRD) Non-Af 76 mL/min (>60) 08/13/20 05:05 BUN/Creatinine Ratio 24.0 RATIO (10-20) H 08/13/20 05:05 Glucose 150 mg/dL (74-106) H 08/13/20 05:05 Assessment/Plan: Psychotropic Medications: Unnecessary Medications: Bowel Regimen: - Provider Comments Provider responsibility: Provider responsible to enter orders to implement recommendations Provider Comments to Recommendations by Pharmacy: Agree
[2020-08-15 10:55] LABS: Bedside Glucose 216 mg/dL (70-110)
--- NOTE | 2020-08-15 11:01 | NURSING ---
DRESSING DONE BY BOAZ DO/WOUND NURSE TODAY.
--- NOTE | 2020-08-15 11:36 | PN_ITS ---
Patient Problems: Active and Suspected Problems Debility (Acute) Ulcer of left foot due to type 2 diabetes mellitus (Acute) Cellulitis of left foot (Acute) Osteomyelitis of left foot (Acute) Subjective: This 80-year-old male with multiple comorbidities including peripheral vascular disease and diabetes currently resides in the transitional care unit and is status post day #5 left foot fifth ray resection for treatment of infection. He is also working with rehab for his current debility. He denies fever, chill, nausea, vomiting, calf pain, foot pain. He admits he does have neuropathy. - Physical Exam Vitals/I&O's: Vital Signs Temp Pulse Resp BP Pulse Ox 97.8 F 73 16 176/76 H 96 08/15/20 01:21 08/15/20 01:21 08/15/20 01:08/15/20 01:08/15/20 01:21 Oxygen Delivery Method Room Air Weight: 97.069 kg Body Mass Index (BMI) 32.5 Intake and Output for Last 24 Hours 08/13/20 08/14/20 08/15/20 23:59 23:59 23:59 Intake Total 1080 / 1080 960 / 960 680 / 680 Balance 1080 / 1080 960 / 960 680 / 680 General: Alert, Oriented x3, Cooperative Extremities: No cyanosis, Capillary Refill Less than 3 Seconds - Remaining toes left foot, No Calf Tenderness, Diminished Peripheral Pulses, Edema - mild Skin: Incision - Well aligned and coapted with sutures intact. No erythema, no purulence, no necrosis, no eschar, no bogginess or fluctuance, no odor, no streaking. There is mild serosanguineous drainage noted on the bandage that appears to be coming from scant area of gapping in the central incision., - - The remainder of the incision is well aligned and coapted without tension visualized. Musculoskeletal: No Tenderness to Palpation of Joints or Extremities, Muscle Wasting, - - Left fifth ray resection. Compartments remain soft to palpate left lower extremity. Active range of motion digits 1, 2, 3, 4 left foot Neurological: - - Lack of normal epicritic sensation is consistent with his neuropathy status Psych/Mental Status: Normal Affect, Appropriate Microbiology Past 72 Hours 08/15/20 10:02 Nasal Secretion SARS-CoV-2 Antigen (Rapid) - Final Laboratory Results 08/13/20 08:03: COVID-19 (FRANCOIS) Not Detected 08/14/20 15:51: POC Glucose 178 H 08/14/20 21:15: POC Glucose 190 H 08/15/20 06:11: POC Glucose 222 H 08/15/20 10:53: POC Glucose 216 H Current Medications Acetaminophen (Acetaminophen 500 Mg Tablet) 1,000 mg PO Q6H PRN PRN PRN Reason: Pain Score 1-10 [facility] ([facility]) [facility] Admin: 08/15/20 08:48 Dose: 100 mg Documented by: Amlodipine Besylate (Amlodipine 10 Mg Tablet) 10 mg PO DAILY [facility] Last Admin: 08/15/20 05:23 Dose: 10 mg Documented by: Aspirin (Aspirin 81 Mg Tab.Chew) [facility] Last Admin: 08/15/20 08:48 Dose: 81 mg Documented by: Atorvastatin Calcium (Atorvastatin Calcium 80 Mg Tablet) 80 mg PO QHS [facility] Last Admin: 08/14/20 20:33 Dose: 80 mg Documented by: Calamine/Phenol (Menthol/Lanolin/Calamine/Znox 113 Gm Tube) 1 applic TOPICAL 0600,2200 [facility]; Protocol Carvedilol (Carvedilol 6.25 Mg Tablet) 6.25 mg PO BID [facility] Last Admin: 08/15/20 05:23 Dose: 6.25 mg Documented by: Clopidogrel Bisulfate (Clopidogrel Bisulfate 75 Mg Tablet) 75 mg PO DAILY [facility] Last Admin: 08/15/20 05:23 Dose: 75 mg Documented by: Doxycycline Monohydrate (Doxycycline 100 Mg Capsule) 100 mg PO BID@1000,2200 [facility] Stop: 09/21/20 23:59 Last Admin: 08/15/20 08:54 Dose: 100 mg Documented by: Duloxetine HCl (Duloxetine Hcl 30 Mg Capsule) 30 mg PO DAILY [facility] Last Admin: 08/15/20 05:23 Dose: 30 mg Documented by: Losartan Potassium (Losartan Potassium 100 Mg Tablet) 100 mg PO DAILY [facility] Last Admin: 08/15/20 05:23 Dose: 100 mg Documented by: Metformin HCl (Metformin Hcl 850 Mg Tablet) 850 mg PO DAILY@0800 [facility] Last Admin: 08/15/20 08:48 Dose: 850 mg Documented by: Nystatin (Nystatin Powder 15gm Bottle) 1 applic TOPICAL BID [facility]; Protocol Polyethylene Glycol (Polyethylene Glycol 3350 17 Gm Packet) 17 gm PO DAILY [facility] Last Admin: 08/15/20 05:25 Dose: 17 gm Documented by: Povidone Iodine (Povidone-Iodine Swabstick) 1 packet TOPICAL 1000 [facility]; Protocol Senna/Docusate Sodium (Senna/Docusate Sodium 1 Tablet) 2 tablet PO BID PRN PRN PRN Reason: Constipation Tolterodine Tartrate (Tolterodine Tartrate 4 Mg Cap.Sa) 4 mg PO DAILY [facility] Last Admin: 08/15/20 05:23 Dose: 4 mg Documented by: Tuberculin PPD (Tuberculin,Purif.Prot.Deriv. 50 Tu/Ml Vial) 5 tu ID [id number] Stop: 08/20/20 10:01 Medical Necessity - Tobacco Use Smoking Status: Current every day smoker Tobacco Use: Cigarettes Assessment/Plan All Active Problems Cellulitis (Acute) Osteomyelitis due to Staphylococcus aureus (Acute) Debility (Acute) Ulcer of left foot due to type 2 diabetes mellitus (Acute) Cellulitis of left foot (Acute) Osteomyelitis of left foot (Acute) Ulceration with osteomyelitis left 5th ray s/p debridement / resection on 08/10/2020 (Dr. Parson) Diabetes with peripheral neuropathy Peripheral vascular disease Reviewed diagnostic data. Foot much improved. He remains afebrile this morning. Clearance cultures pending - growing staph aurues, MSSA. Clearance pathology fragment is negative for osteomyelitis. To continue with antibiotic - pt on PO doxycycine at this time. ID/Dr. Maria on consult and appreciated. Dressing changes left foot: overlying Betadine gauze, abdominal pad, kerlix and chris dressing - change daily. Looks stable today without local signs of infection. No weightbearing left foot. Keep left foot elevated. Surgical shoe ordered for heel touch down for transfers only. LEAS - noninvasive lower extremity arterial studies were ordered and reviewed - there is noted to be moderate vascular disease left foot. Dr. Moya, vascular surgeon, has been consulted to see in TCU this week. Podiatry will continue to follow closely. Please call if questions. [facility] with Dr. Parson after discharge. Tiffanie Lau DPM, FACFAS [facility] [phone]
--- NOTE | 2020-08-15 12:03 | NURSING ---
wound photo: left lateral foot
[2020-08-15] MEDS: Povidone-Iodine Swabstick 1 PACKET TOPICAL (13:10)
[2020-08-15 14:26] VITALS: BP 117/58; PULSE 73; RESP 20; TEMP 36; O2SAT 97
--- NOTE | 2020-08-15 15:20 | CASEMGMT ---
Social Work Discussed code status with pt. Pt confirmed full code. MOLST form reviewed, communication to Dr, placed in chart, Patt Friedman, GLOBAL PROGRAM DIRECTOR TERRITORY SALES MANAGER MEDICAL
--- NOTE | 2020-08-15 15:50 | NURSING ---
Addendum entered by Shireen Blancas 08/15/20 16:20: returned call appt made for 08/31/20 @ 0945 Original Note: Attempted to call Dr Moya office for appt, Dr Billy would like pt to see for PAOD, message left, awaiting return call.
[2020-08-15] MEDS: Nystatin Powder 15gm Bottle 1 APPLIC TOPICAL (17:32)
--- NOTE | 2020-08-15 18:22 | NURSING ---
CALLED AND UPDATED DAUGHTER ON PT.
[2020-08-15 21:05] LABS: Bedside Glucose 194 mg/dL (70-110)
[2020-08-15] MEDS: Atorvastatin Calcium 80 MG Tablet PO (21:33)
[2020-08-15] MEDS: Menthol/Lanolin/Calamine/Znox 113 GM Tube 1 APPLIC TOPICAL (21:35)
[2020-08-16 04:00] VITALS: BP 154/84; PULSE 70; RESP 16; TEMP 37.1; O2SAT 94
[2020-08-16] MEDS: Losartan Potassium 100 MG Tablet PO (06:13)
[2020-08-16] MEDS: Clopidogrel Bisulfate 75 MG Tablet PO (06:14)
[2020-08-16] MEDS: Carvedilol 6.25 MG Tablet PO ×2 (06:14→17:11)
[2020-08-16] MEDS: Tolterodine Tartrate 4 MG CAP.SA PO (06:14)
[2020-08-16] MEDS: DULoxetine Hcl 30 MG Capsule PO (06:14)
[2020-08-16] MEDS: amLODIPine 10 MG Tablet PO (06:14)
[2020-08-16] MEDS: Menthol/Lanolin/Calamine/Znox 113 GM Tube 1 APPLIC TOPICAL ×2 (06:15→21:09)
[2020-08-16] MEDS: Nystatin Powder 15gm Bottle 1 APPLIC TOPICAL (06:15)
[2020-08-16] MEDS: Polyethylene Glycol 3350 17 GM PACKET PO (06:15)
[2020-08-16 06:21] LABS: Bedside Glucose 225 mg/dL (70-110)
[2020-08-16] MEDS: Allopurinol 100 MG Tablet PO (08:10)
[2020-08-16] MEDS: Aspirin 81 MG TAB.CHEW PO (08:10)
[2020-08-16] MEDS: metFORMIN HCl 850 MG Tablet PO (08:10)
[2020-08-16] MEDS: Doxycycline 100 MG CAPSULE PO ×2 (10:09→21:06)
--- NOTE | 2020-08-16 10:59 | NURSING ---
DR. HAWTHORNE IN TO SEE PT AND ASK PT QUESTIONS AND POSSIBLE PROCEDURE NEXT WEEK.
[2020-08-16 11:06] LABS: Bedside Glucose 251 mg/dL (70-110)
--- NOTE | 2020-08-16 11:34 | PCM.CONS.GEN ---
Problem List (1) Peripheral arterial occlusive disease Status: Chronic Reason for Consult Date of Consultation: 08/16/20 Reason for Consultation: Left foot wound History of Present Illness: The patient is a 80 year old M who about a month ago developed a left lateral foot wound. This is worsened and had some osteonoted in his had debridement of the wound. He is now up in the TCU unit. End of July 2020 had ABIs that showed on the right noncompressible of the posterior tib and the DP was 0.99 with triphasic flow. The left the posterior tib is 1.27 and the DP was 0.42. Digit brachial index on the right was 0.51 on the left 0.64. The left was biphasic but almost a near triphasic waveform. Patient with no prior history of PAD. No interventions previously. Patient with coronary stents x5. No stroke. No smoking. Hypertension on meds. Hyperlipidemia on a statin. Has been diabetic since 2009. [] Past Medical History Past Medical History (Chronic Problems): Chronic Problems Diabetes (Chronic) Peripheral neuropathy (Chronic) CAD (coronary artery disease) (Chronic) Obesity (Chronic) HTN (hypertension) (Chronic) HLD (hyperlipidemia) (Chronic) BPH (benign prostatic hyperplasia) (Chronic) Gout (Chronic) Overactive bladder (Chronic) Peripheral arterial occlusive disease (Chronic) Diabetic polyneuropathy (Chronic) Body mass index 32.0-32.9, adult (Chronic) Tobacco abuse (Chronic) Allergies cetirizine [From Zyrtec] Allergy (Severe, Verified 08/09/20 15:49) Swollen lymph glands gabapentin Allergy (Severe, Verified 08/09/20 15:49) Swollen lymph glands pregabalin [From Lyrica] Adverse Reaction (Verified 08/10/20 12:04) Other Home Medications: Ambulatory Orders Medication Instructions Recorded Allopurinol 100 mg PO DAILY 08/09/20 Aspirin 81 mg PO DAILY 08/09/20 Atorvastatin Calcium 80 mg PO DAILY 08/09/20 Carvedilol [Coreg (Beta Malissa)] 6.25 mg PO BID 08/09/20 Clopidogrel Bisulfate [Clopidogrel] 75 mg PO DAILY 08/09/20 Losartan Potassium 100 mg PO DAILY 08/09/20 Tolterodine Tartrate [Tolterodine 4 mg PO DAILY 08/09/20 Tartrate ER] metFORMIN HCl [Glucophage] 850 mg PO DAILY 08/09/20 Acetaminophen [Tylenol Tablet] 650 mg PO Q6H PRN PRN tab 08/12/20 Amlodipine [Norvasc] 10 mg PO DAILY 08/12/20 Doxycycline 100 mg PO BID 08/12/20 Duloxetine Hcl [Cymbalta] 30 mg PO DAILY 08/12/20 Enoxaparin [Lovenox] 40 mg SC DAILY 08/12/20 Insulin Lispro [Humalog KwikPen] See Protocol SC ACHS 08/12/20 Polyethylene Glycol 3350 [Miralax] 17 gm PO DAILY 08/12/20 Senna/Docusate Sodium [Senokot-S] 2 tab PO BID PRN PRN tab 08/12/20 Surgical History: angioplasty - cardiac stents x 5., rotator cuff repair - Right., - - Left foot ulcer debridement, left foot excision 5th metatarsal head, left foot tendon surgery, Eye surgery. Psychiatric History: No pertinent psych hx Lives: With Family - Daughter. Alcohol: None Drugs: None - *Family History Maternal History Items: No pertinent history Paternal History Items: No pertinent history Review of Systems Constitutional: Denies: Chills, Fever, Weight Change HEENT: Denies: Head Aches, Sinus Congestion, Sinus Drainage Cardiovascular: Denies: Chest Pain, Palpitations Respiratory: Denies: Cough, Shortness of breath at rest, Sputum production Gastrointestinal: Denies: Abdominal Pain, Nausea, Vomiting Genitourinary: Denies: Dysuria Musculoskeletal: Denies: Joint Pain, Joint Tenderness Skin: Denies: Rash, Wounds Neurological: Denies: Numbness, Tingling, Focal weakness Psychiatric: Denies: Anxiety, Depression, Homicidal Ideations, Suicidal Ideations Hematologic/ Lymphatic: Denies: Easy Bruising, Easy Bleeding Patient Problems: Active and Suspected Problems Debility (Acute) Ulcer of left foot due to type 2 diabetes mellitus (Acute) Cellulitis of left foot (Acute) Osteomyelitis of left foot (Acute) - Physical Exam Vitals/I&O's: Vital Signs Temp Pulse Resp BP Pulse Ox 98.7 F 70 16 154/84 H 94 08/16/20 04:00 08/16/20 04:00 08/16/20 04:00 08/16/20 04:00 08/16/20 04:00 Oxygen Delivery Method Room Air Weight: 222 lb 6 oz Body Mass Index (BMI) 32.5 Intake and Output for Last 24 Hours 08/14/20 08/15/20 08/16/20 23:59 23:59 23:59 Intake Total 960 / 960 1640 / 1640 600 / 600 Balance 960 / 960 1640 / 1640 600 / 600 General: Alert, Oriented x3, No apparent distress HEENT: Atraumatic, PERRLA, EOMI, Normocephalic Oral: Moist Mucosa Neck: Supple, No JVD, Negative Carotid Bruits Lungs: Clear to auscultation Cardiovascular: Regular rate Abdomen: Soft, Non Tender Extremities: - - Left foot wound Skin: - - Left foot wound Musculoskeletal: No Tenderness to Palpation of Joints or Extremities Neurological: Motor Exam 5/5 strength throughout Microbiology Past 72 Hours 08/15/20 10:02 Nasal Secretion SARS-CoV-2 Antigen (Rapid) - Final Laboratory Results 08/15/20 20:57: POC Glucose 194 H 08/16/20 06:12: POC Glucose 225 H 08/16/20 10:50: POC Glucose 251 H Current Medications Acetaminophen (Acetaminophen 500 Mg Tablet) 1,000 mg PO Q6H PRN PRN PRN Reason: Pain Score 1-10 [facility] ([facility] Mg [facility]) [facility] Admin: 08/16/20 08:10 Dose: 100 mg Documented by: Amlodipine Besylate (Amlodipine 10 Mg Tablet) 10 mg PO DAILY [facility] Last Admin: 08/16/20 06:14 Dose: 10 mg Documented by: Aspirin (Aspirin 81 Mg Tab.Chew) [facility] Last Admin: 08/16/20 08:10 Dose: 81 mg Documented by: Atorvastatin Calcium (Atorvastatin Calcium 80 Mg Tablet) 80 mg PO QHS [facility] Last Admin: 08/15/20 21:33 Dose: 80 mg Documented by: Calamine/Phenol (Menthol/Lanolin/Calamine/Znox 113 Gm Tube) 1 applic TOPICAL 0600,2200 [facility]; Protocol Last Admin: 08/16/20 06:15 Dose: 1 applicatio Documented by: Carvedilol (Carvedilol 6.25 Mg Tablet) 6.25 mg PO BID [facility] Last Admin: 08/16/20 06:14 Dose: 6.25 mg Documented by: Clopidogrel Bisulfate (Clopidogrel Bisulfate 75 Mg Tablet) 75 mg PO DAILY [facility] Last Admin: 08/16/20 06:14 Dose: 75 mg Documented by: Doxycycline Monohydrate (Doxycycline 100 Mg Capsule) 100 mg PO BID@1000,2200 [facility] Stop: 09/21/20 23:59 Last Admin: 08/16/20 10:09 Dose: 100 mg Documented by: Duloxetine HCl (Duloxetine Hcl 30 Mg Capsule) 30 mg PO DAILY [facility] Last Admin: 08/16/20 06:14 Dose: 30 mg Documented by: Losartan Potassium (Losartan Potassium 100 Mg Tablet) 100 mg PO DAILY [facility] Last Admin: 08/16/20 06:13 Dose: 100 mg Documented by: Metformin HCl (Metformin Hcl 850 Mg Tablet) 850 mg PO DAILY@0800 [facility] Last Admin: 08/16/20 08:10 Dose: 850 mg Documented by: Nystatin (Nystatin Powder 15gm Bottle) 1 applic TOPICAL BID [facility]; Protocol Last Admin: 08/16/20 06:15 Dose: 1 applicatio Documented by: Polyethylene Glycol (Polyethylene Glycol 3350 17 Gm Packet) 17 gm PO DAILY [facility] Last Admin: 08/16/20 06:15 Dose: 17 gm Documented by: Povidone Iodine (Povidone-Iodine Swabstick) 1 packet TOPICAL 1000 [facility]; Protocol Last Admin: 08/15/20 13:10 Dose: 1 packet Documented by: Senna/Docusate Sodium (Senna/Docusate Sodium 1 Tablet) 2 tablet PO BID PRN PRN PRN Reason: Constipation Tolterodine Tartrate (Tolterodine Tartrate 4 Mg Cap.Sa) 4 mg PO DAILY [facility] Last Admin: 08/16/20 06:14 Dose: 4 mg Documented by: Tuberculin PPD (Tuberculin,Purif.Prot.Deriv. 50 Tu/Ml Vial) 5 tu ID [id number] ONE Stop: 08/20/20 10:01 Assessment/Plan All Active Problems Cellulitis (Acute) Osteomyelitis due to Staphylococcus aureus (Acute) Debility (Acute) Ulcer of left foot due to type 2 diabetes mellitus (Acute) Cellulitis of left foot (Acute) Osteomyelitis of left foot (Acute) 1. PAD. Patient may be with some mild PAD on the left. May be some tibial disease with his diabetes. If the foot is not healing we plan for an angiogram in the next week or 2. To see is there something with the tibials we can assess.
[2020-08-16 12:43] VITALS: BP 110/60; PULSE 66; RESP 20; TEMP 36.2; O2SAT 97
[2020-08-16 17:00] LABS: Bedside Glucose 201 mg/dL (70-110)
[2020-08-16] MEDS: Povidone-Iodine Swabstick 1 PACKET TOPICAL (20:49)
[2020-08-16] MEDS: Atorvastatin Calcium 80 MG Tablet PO (21:06)
[2020-08-16 21:30] LABS: Bedside Glucose 218 mg/dL (70-110)
[2020-08-17 04:00] VITALS: BP 145/81; PULSE 70; RESP 18; TEMP 36.6; O2SAT 94
[2020-08-17] MEDS: Polyethylene Glycol 3350 17 GM PACKET PO (05:07)
[2020-08-17] MEDS: amLODIPine 10 MG Tablet PO (05:08)
[2020-08-17] MEDS: Tolterodine Tartrate 4 MG CAP.SA PO (05:08)
[2020-08-17] MEDS: Carvedilol 6.25 MG Tablet PO ×2 (05:08→17:13)
[2020-08-17] MEDS: Losartan Potassium 100 MG Tablet PO (05:08)
[2020-08-17] MEDS: Clopidogrel Bisulfate 75 MG Tablet PO (05:08)
[2020-08-17] MEDS: DULoxetine Hcl 30 MG Capsule PO (05:08)
[2020-08-17] MEDS: Menthol/Lanolin/Calamine/Znox 113 GM Tube 1 APPLIC TOPICAL ×2 (05:10→20:18)
[2020-08-17] MEDS: Nystatin Powder 15gm Bottle 1 APPLIC TOPICAL ×2 (05:11→17:13)
[2020-08-17 06:26] LABS: Bedside Glucose 206 mg/dL (70-110)
[2020-08-17] MEDS: Allopurinol 100 MG Tablet PO (08:02)
[2020-08-17] MEDS: metFORMIN HCl 850 MG Tablet PO (08:02)
[2020-08-17] MEDS: Aspirin 81 MG TAB.CHEW PO (08:02)
[2020-08-17] MEDS: Povidone-Iodine Swabstick 1 PACKET TOPICAL (09:44)
[2020-08-17 09:59] VITALS: PULSE 73; O2SAT 98
[2020-08-17 10:35] LABS: Bedside Glucose 264 mg/dL (70-110)
[2020-08-17] MEDS: Doxycycline 100 MG CAPSULE PO ×2 (11:16→21:20)
--- NOTE | 2020-08-17 11:36 | CASEMGMT ---
Social Work IDT met with patient and dtr via conference call for care plan meeting. Discussed patient's progress in therapy. Pt is NWB LLE, can only WB through heel for tx while wearing surgical shoe. Pt using knee scooter ambulation. Pt is out of isolation 08/25. Nursing continue to care for wounds. Explained Medicare benefit. The goal is for pt to return home with dtr. Will continue to follow. DMITRI WhaleyW
[2020-08-17 13:54] VITALS: BP 97/60; PULSE 69; RESP 16; TEMP 36.1; O2SAT 99
[2020-08-17 16:55] LABS: Bedside Glucose 193 mg/dL (70-110)
[2020-08-17] MEDS: Atorvastatin Calcium 80 MG Tablet PO (20:20)
[2020-08-17 21:16] LABS: Bedside Glucose 204 mg/dL (70-110)
[2020-08-18 04:00] VITALS: BP 140/77; PULSE 68; RESP 18; TEMP 36.4; O2SAT 93
[2020-08-18] MEDS: Menthol/Lanolin/Calamine/Znox 113 GM Tube 1 APPLIC TOPICAL ×2 (06:11→22:41)
[2020-08-18] MEDS: Nystatin Powder 15gm Bottle 1 APPLIC TOPICAL (06:11)
[2020-08-18] MEDS: Polyethylene Glycol 3350 17 GM PACKET PO (06:12)
[2020-08-18] MEDS: Clopidogrel Bisulfate 75 MG Tablet PO (06:12)
[2020-08-18] MEDS: DULoxetine Hcl 30 MG Capsule PO (06:12)
[2020-08-18] MEDS: Losartan Potassium 100 MG Tablet PO (06:12)
[2020-08-18] MEDS: amLODIPine 10 MG Tablet PO (06:12)
[2020-08-18] MEDS: Tolterodine Tartrate 4 MG CAP.SA PO (06:12)
[2020-08-18] MEDS: Carvedilol 6.25 MG Tablet PO ×2 (06:12→17:17)
[2020-08-18 06:15] LABS: Bedside Glucose 193 mg/dL (70-110)
[2020-08-18] MEDS: Doxycycline 100 MG CAPSULE PO ×2 (09:17→23:15)
[2020-08-18] MEDS: metFORMIN HCl 850 MG Tablet PO (09:17)
[2020-08-18] MEDS: Aspirin 81 MG TAB.CHEW PO (09:17)
[2020-08-18] MEDS: Allopurinol 100 MG Tablet PO (09:17)
[2020-08-18 10:56] LABS: Bedside Glucose 270 mg/dL (70-110)
[2020-08-18] MEDS: Povidone-Iodine Swabstick 1 PACKET TOPICAL (12:02)
--- NOTE | 2020-08-18 12:03 | NURSING ---
BOAZ DO/WOUND NURSE CHANGED PT DRESSING.
[2020-08-18 14:08] VITALS: BP 124/63; PULSE 62; RESP 16; TEMP 36.5; O2SAT 95
[2020-08-18 16:30] LABS: Bedside Glucose 198 mg/dL (70-110)
[2020-08-18 21:26] LABS: Bedside Glucose 180 mg/dL (70-110)
[2020-08-18] MEDS: Atorvastatin Calcium 80 MG Tablet PO (22:42)
[2020-08-19 04:00] VITALS: BP 138/71; PULSE 61; RESP 18; TEMP 36.5; O2SAT 97
[2020-08-19] MEDS: Clopidogrel Bisulfate 75 MG Tablet PO (06:05)
[2020-08-19] MEDS: Carvedilol 6.25 MG Tablet PO ×2 (06:05→17:09)
[2020-08-19] MEDS: DULoxetine Hcl 30 MG Capsule PO (06:05)
[2020-08-19] MEDS: amLODIPine 10 MG Tablet PO (06:05)
[2020-08-19] MEDS: Losartan Potassium 100 MG Tablet PO (06:05)
[2020-08-19] MEDS: Nystatin Powder 15gm Bottle 1 APPLIC TOPICAL ×2 (06:05→17:10)
[2020-08-19] MEDS: Tolterodine Tartrate 4 MG CAP.SA PO (06:05)
[2020-08-19] MEDS: Polyethylene Glycol 3350 17 GM PACKET PO (06:05)
[2020-08-19] MEDS: Menthol/Lanolin/Calamine/Znox 113 GM Tube 1 APPLIC TOPICAL ×2 (06:05→21:16)
[2020-08-19 06:15] LABS: Bedside Glucose 202 mg/dL (70-110)
[2020-08-19] MEDS: Aspirin 81 MG TAB.CHEW PO (08:02)
[2020-08-19] MEDS: Allopurinol 100 MG Tablet PO (08:02)
[2020-08-19] MEDS: metFORMIN HCl 850 MG Tablet PO (08:02)
[2020-08-19] MEDS: Doxycycline 100 MG CAPSULE PO ×2 (09:32→21:37)
[2020-08-19 11:25] LABS: Bedside Glucose 219 mg/dL (70-110)
[2020-08-19 14:59] VITALS: BP 107/47; PULSE 70; RESP 18; TEMP 36.8; O2SAT 94
[2020-08-19 17:00] LABS: Bedside Glucose 195 mg/dL (70-110)
[2020-08-19] MEDS: Atorvastatin Calcium 80 MG Tablet PO (21:12)
[2020-08-19] MEDS: Povidone-Iodine Swabstick 1 PACKET TOPICAL (21:16)
[2020-08-19 21:45] LABS: Bedside Glucose 229 mg/dL (70-110)
[2020-08-19 22:49] VITALS: PULSE 74; RESP 16; O2SAT 97
[2020-08-20 02:18] VITALS: BP 115/62; PULSE 74; RESP 16; TEMP 36.2; O2SAT 97
[2020-08-20] MEDS: Losartan Potassium 100 MG Tablet PO (06:19)
[2020-08-20] MEDS: Tolterodine Tartrate 4 MG CAP.SA PO (06:19)
[2020-08-20] MEDS: Clopidogrel Bisulfate 75 MG Tablet PO (06:19)
[2020-08-20] MEDS: Carvedilol 6.25 MG Tablet PO ×2 (06:19→17:34)
[2020-08-20] MEDS: Polyethylene Glycol 3350 17 GM PACKET PO (06:19)
[2020-08-20] MEDS: amLODIPine 10 MG Tablet PO (06:19)
[2020-08-20] MEDS: DULoxetine Hcl 30 MG Capsule PO (06:19)
[2020-08-20] MEDS: Nystatin Powder 15gm Bottle 1 APPLIC TOPICAL ×2 (06:21→17:34)
[2020-08-20] MEDS: Menthol/Lanolin/Calamine/Znox 113 GM Tube 1 APPLIC TOPICAL ×2 (06:21→21:13)
[2020-08-20 06:36] LABS: Bedside Glucose 193 mg/dL (70-110)
[2020-08-20 07:17] LABS: Absolute Lymphocyte Count 2.27 X10^3/uL (0.83-4.51); Absolute Neutrophil Count 4.6 X10^3/uL (2.0-7.7); Basophil# 0.09 X10^3/uL; Basophil% 1.1 % (0-1); Eosinophil# 0.56 X10^3/uL; Eosinophils% 6.7 % (0-5); Hematocrit 39.5 % (40-54); Hemoglobin 12.7 g/dL (13.0-16.5); Lymphocyte # 2.27 X10^3/ul (4.0); Lymphocyte % 27.2 % (19-41); Mean Corp Hgb Conc 32.2 g/dL (32-36); Mean Corpuscular Hgb 28.8 pg (27.0-32.0); Mean Corpuscular Volume 89.6 fL (80-94); Mean Platelet Vol. 11.2 fl (6.2-12.0); Monocyte# 0.75 X10^3/uL; NRBC Flagged by Analyzer 0 % (0-5); Neutrophil % 54.9 % (47-70); Platelet Count 291 K/mm3 (150-450); RBC Distribution Width CV 13.9 % (11.6-14.6); RBC Distribution Width SD 45.3 fl (35.1-43.9); Red Blood Count 4.41 M/mm3 (4.6-6.2); White Blood Count 8.4 K/mm3 (4.4-11.0)
[2020-08-20 08:02] LABS: Anion Gap 6 (5-15); BUN 55 mg/dL (7-18); BUN/Creat Ratio 52.4 RATIO (10-20); Chloride 105 mmol/L (98-107); Creatinine, Serum 1.05 mg/dL (0.70-1.30); EST Glomerular Filtration Rate 72 mL/min (>60); Est Glom Filt Rate - Afr Amer 87 mL/min (>60); Estimated Creatinine Clearance 54.29 ml/min; Glucose 197 mg/dL (74-106); Potassium 4.5 mmol/L (3.5-5.1); Sodium Level 136 mmol/L (136-145)
[2020-08-20] MEDS: metFORMIN HCl 850 MG Tablet PO (08:21)
[2020-08-20] MEDS: Aspirin 81 MG TAB.CHEW PO (08:21)
[2020-08-20] MEDS: Allopurinol 100 MG Tablet PO (08:22)
[2020-08-20] MEDS: Doxycycline 100 MG CAPSULE PO ×2 (08:22→21:11)
[2020-08-20] MEDS: Povidone-Iodine Swabstick 1 PACKET TOPICAL (08:23)
[2020-08-20 11:11] LABS: Bedside Glucose 216 mg/dL (70-110)
[2020-08-20] MEDS: Tuberculin,Purif.prot.deriv. 50 TU/ML Vial 5 ML ID (11:35)
[2020-08-20 14:55] VITALS: BP 122/65; PULSE 69; RESP 20; TEMP 36.2; O2SAT 97
[2020-08-20 16:46] LABS: Bedside Glucose 181 mg/dL (70-110)
[2020-08-20] MEDS: Atorvastatin Calcium 80 MG Tablet PO (21:12)
[2020-08-20 21:25] LABS: Bedside Glucose 240 mg/dL (70-110)
[2020-08-21 04:00] VITALS: BP 128/68; PULSE 64; RESP 16; TEMP 36.6; O2SAT 96
[2020-08-21] MEDS: amLODIPine 10 MG Tablet PO (06:14)
[2020-08-21] MEDS: DULoxetine Hcl 30 MG Capsule PO (06:14)
[2020-08-21] MEDS: Tolterodine Tartrate 4 MG CAP.SA PO (06:14)
[2020-08-21] MEDS: Carvedilol 6.25 MG Tablet PO ×2 (06:14→17:15)
[2020-08-21] MEDS: Losartan Potassium 100 MG Tablet PO (06:14)
[2020-08-21] MEDS: Clopidogrel Bisulfate 75 MG Tablet PO (06:14)
[2020-08-21 06:16] LABS: Bedside Glucose 219 mg/dL (70-110)
[2020-08-21] MEDS: Menthol/Lanolin/Calamine/Znox 113 GM Tube 1 APPLIC TOPICAL ×2 (06:16→19:59)
[2020-08-21] MEDS: Nystatin Powder 15gm Bottle 1 APPLIC TOPICAL ×2 (06:16→17:15)
[2020-08-21] MEDS: Allopurinol 100 MG Tablet PO (08:38)
[2020-08-21] MEDS: metFORMIN HCl 850 MG Tablet PO (08:38)
[2020-08-21] MEDS: Aspirin 81 MG TAB.CHEW PO (08:38)
[2020-08-21] MEDS: Doxycycline 100 MG CAPSULE PO ×2 (08:39→19:56)
[2020-08-21] MEDS: Povidone-Iodine Swabstick 1 PACKET TOPICAL (08:42)
[2020-08-21 10:56] LABS: Bedside Glucose 250 mg/dL (70-110)
[2020-08-21 14:20] VITALS: BP 112/71; PULSE 71; RESP 20; TEMP 36; O2SAT 96
[2020-08-21 16:36] LABS: Bedside Glucose 170 mg/dL (70-110)
[2020-08-21] MEDS: Atorvastatin Calcium 80 MG Tablet PO (19:56)
[2020-08-21 20:00] VITALS: PULSE 74; RESP 16; O2SAT 96
[2020-08-21 21:16] LABS: Bedside Glucose 213 mg/dL (70-110)
[2020-08-22 04:00] VITALS: BP 139/79; PULSE 68; RESP 16; TEMP 36.6; O2SAT 98
[2020-08-22] MEDS: Carvedilol 6.25 MG Tablet PO ×2 (05:45→17:17)
[2020-08-22] MEDS: DULoxetine Hcl 30 MG Capsule PO (05:45)
[2020-08-22] MEDS: Tolterodine Tartrate 4 MG CAP.SA PO (05:45)
[2020-08-22] MEDS: Clopidogrel Bisulfate 75 MG Tablet PO (05:45)
[2020-08-22] MEDS: Polyethylene Glycol 3350 17 GM PACKET PO (05:45)
[2020-08-22] MEDS: amLODIPine 10 MG Tablet PO (05:45)
[2020-08-22] MEDS: Losartan Potassium 100 MG Tablet PO (05:45)
[2020-08-22] MEDS: Nystatin Powder 15gm Bottle 1 APPLIC TOPICAL ×2 (05:47→17:17)
[2020-08-22] MEDS: Menthol/Lanolin/Calamine/Znox 113 GM Tube 1 APPLIC TOPICAL ×2 (05:47→20:48)
[2020-08-22 06:20] LABS: Bedside Glucose 186 mg/dL (70-110)
[2020-08-22] MEDS: Aspirin 81 MG TAB.CHEW PO (08:11)
[2020-08-22] MEDS: metFORMIN HCl 850 MG Tablet PO (08:11)
[2020-08-22] MEDS: Allopurinol 100 MG Tablet PO (08:11)
[2020-08-22] MEDS: Doxycycline 100 MG CAPSULE PO ×2 (09:20→20:58)
[2020-08-22] MEDS: Povidone-Iodine Swabstick 1 PACKET TOPICAL (09:25)
[2020-08-22 09:41] VITALS: PULSE 67; O2SAT 98
[2020-08-22 11:06] LABS: Bedside Glucose 232 mg/dL (70-110)
[2020-08-22 14:56] VITALS: BP 125/64; PULSE 75; RESP 20; TEMP 36.2; O2SAT 98
[2020-08-22 16:45] LABS: Bedside Glucose 188 mg/dL (70-110)
[2020-08-22] MEDS: Atorvastatin Calcium 80 MG Tablet PO (20:46)
[2020-08-22 21:15] LABS: Bedside Glucose 222 mg/dL (70-110)
[2020-08-23 04:00] VITALS: BP 171/83; PULSE 67; RESP 18; TEMP 36.7; O2SAT 94
[2020-08-23] MEDS: Menthol/Lanolin/Calamine/Znox 113 GM Tube 1 APPLIC TOPICAL ×2 (05:33→21:50)
[2020-08-23] MEDS: amLODIPine 10 MG Tablet PO (05:34)
[2020-08-23] MEDS: Polyethylene Glycol 3350 17 GM PACKET PO (05:34)
[2020-08-23] MEDS: DULoxetine Hcl 30 MG Capsule PO (05:34)
[2020-08-23] MEDS: Clopidogrel Bisulfate 75 MG Tablet PO (05:34)
[2020-08-23] MEDS: Losartan Potassium 100 MG Tablet PO (05:34)
[2020-08-23] MEDS: Carvedilol 6.25 MG Tablet PO ×2 (05:34→17:12)
[2020-08-23] MEDS: Tolterodine Tartrate 4 MG CAP.SA PO (05:34)
[2020-08-23] MEDS: Nystatin Powder 15gm Bottle 1 APPLIC TOPICAL (05:35)
[2020-08-23 06:15] LABS: Bedside Glucose 161 mg/dL (70-110)
[2020-08-23] MEDS: metFORMIN HCl 850 MG Tablet PO (08:20)
[2020-08-23] MEDS: Aspirin 81 MG TAB.CHEW PO (08:20)
[2020-08-23] MEDS: Allopurinol 100 MG Tablet PO (08:21)
[2020-08-23] MEDS: Doxycycline 100 MG CAPSULE PO ×2 (09:07→21:47)
--- NOTE | 2020-08-23 09:13 | NURSING ---
DR MCKEON AND IH,RN/WOUND NURSE IN TO SEE PT AND DRESSING CHANGE.
[2020-08-23] MEDS: Povidone-Iodine Swabstick 1 PACKET TOPICAL (09:35)
--- NOTE | 2020-08-23 09:43 | PN_ITS ---
Patient Problems: Active and Suspected Problems Debility (Acute) Ulcer of left foot due to type 2 diabetes mellitus (Acute) Cellulitis of left foot (Acute) Osteomyelitis of left foot (Acute) Subjective: Patient seen and examined. No new pedal complaints. No pain. Patient denies N/F/V/C/CP/SOB/streaking/purulence. - Physical Exam Vitals/I&O's: Vital Signs Temp Pulse Resp BP Pulse Ox 98.0 F 67 18 171/83 H 94 08/23/20 04:00 08/23/20 04:00 08/23/20 04:00 08/23/20 04:00 08/23/20 04:00 Oxygen Delivery Method Room Air Weight: 100.868 kg Body Mass Index (BMI) 32.5 Intake and Output for Last 24 Hours 08/21/20 08/22/20 08/23/20 23:59 23:59 23:59 Intake Total 1520 / 1520 1780 / 1780 600 / 600 Output Total 400 / 400 200 / 200 Balance 1520 / 1520 1380 / 1380 400 / 400 General: Alert, Oriented x3 HEENT: Atraumatic Abdomen: Obese Extremities: No clubbing, No cyanosis, Capillary Refill Less than 3 Seconds, No Calf Tenderness, Diminished Peripheral Pulses, Edema Skin: Incision - lateral left foot. Sutures intact skin well coapted with central area of ulceration noted. No malodor, erythema, purulence, probing to bone, streaking, or other signs of infection. Skin is atrophic and hairless. 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 Neurological: - - lack of epicritic sensation consistent with neuropathy Psych/Mental Status: Normal Affect, Appropriate Laboratory Results 08/22/20 10:52: POC Glucose 232 H 08/22/20 16:34: POC Glucose 188 H 08/22/20 21:12: POC Glucose 222 H 08/23/20 06:08: POC Glucose 161 H Current Medications Acetaminophen (Acetaminophen 500 Mg Tablet) 1,000 mg PO Q6H PRN PRN PRN Reason: Pain Score 1-10 [facility]ol ([facility] 100 Mg Tablet) [facility] Last Admin: 08/23/20 08:21 Dose: 100 mg Documented by: Amlodipine Besylate (Amlodipine 10 Mg Tablet) 10 mg PO DAILY [facility] Last Admin: 08/23/20 05:34 Dose: 10 mg Documented by: Aspirin (Aspirin 81 Mg Tab.Chew) 81 mg PO DAILYCM [facility] Last Admin: 08/23/20 08:20 Dose: 81 mg Documented by: Atorvastatin Calcium (Atorvastatin Calcium 80 Mg Tablet) 80 mg PO QHS [facility] Last Admin: 08/22/20 20:46 Dose: 80 mg Documented by: Calamine/Phenol (Menthol/Lanolin/Calamine/Znox 113 Gm Tube) 1 applic TOPICAL 0600,2200 [facility]; Protocol Last Admin: 08/23/20 05:33 Dose: 1 applicatio Documented by: Carvedilol (Carvedilol 6.25 Mg Tablet) 6.25 mg PO BID [facility] Last Admin: 08/23/20 05:34 Dose: 6.25 mg Documented by: Clopidogrel Bisulfate (Clopidogrel Bisulfate 75 Mg Tablet) 75 mg PO DAILY [facility] Last Admin: 08/23/20 05:34 Dose: 75 mg Documented by: Doxycycline Monohydrate (Doxycycline 100 Mg Capsule) 100 mg PO BID@1000,2200 [facility] Stop: 09/21/20 23:59 Last Admin: 08/23/20 09:07 Dose: 100 mg Documented by: Duloxetine HCl (Duloxetine Hcl 30 Mg Capsule) 30 mg PO DAILY [facility] Last Admin: 08/23/20 05:34 Dose: 30 mg Documented by: Insulin Glargine (Insulin Glargine 100 Units/Ml Pen) 10 units SC QHS [facility] Last Admin: 08/22/20 21:44 Dose: 10 u Documented by: Losartan Potassium (Losartan Potassium 100 Mg Tablet) 100 mg PO DAILY [facility] Last Admin: 08/23/20 05:34 Dose: 100 mg Documented by: Metformin HCl (Metformin Hcl 850 Mg Tablet) 850 mg PO DAILY@0800 [facility] Last Admin: 08/23/20 08:20 Dose: 850 mg Documented by: Nystatin (Nystatin Powder 15gm Bottle) 1 applic TOPICAL BID [facility]; Protocol Last Admin: 08/23/20 05:35 Dose: 1 applicatio Documented by: Polyethylene Glycol (Polyethylene Glycol 3350 17 Gm Packet) 17 gm PO DAILY [facility] Last Admin: 08/23/20 05:34 Dose: 17 gm Documented by: Povidone Iodine (Povidone-Iodine Swabstick) 1 packet TOPICAL 1000 [facility]; Protocol Last Admin: 08/23/20 09:35 Dose: 1 packet Documented by: Senna/Docusate Sodium (Senna/Docusate Sodium 1 Tablet) 2 tablet PO BID PRN PRN PRN Reason: Constipation Tolterodine Tartrate (Tolterodine Tartrate 4 Mg Cap.Sa) 4 mg PO DAILY [facility] Last Admin: 08/23/20 05:34 Dose: 4 mg Documented by: Medical Necessity - Tobacco Use Tobacco Use: Cigarettes Assessment/Plan All Active Problems Cellulitis (Acute) Osteomyelitis due to Staphylococcus aureus (Acute) Debility (Acute) Ulcer of left foot due to type 2 diabetes mellitus (Acute) Cellulitis of left foot (Acute) Osteomyelitis of left foot (Acute) Ulceration with osteomyelitis left 5th ray s/p debridement / resection on 08/10/2020 (Dr. Parson) Diabetes with peripheral neuropathy Peripheral vascular disease Reviewed diagnostic data. To continue with antibiotic - pt on PO doxycycine at this time. Dressing changes left foot: overlying Betadine gauze, abdominal pad, kerlix and chris dressing - change every other day. Looks stable today without local signs of infection. No weightbearing left foot. Keep left foot elevated. Surgical shoe ordered for heel touch down for transfers only. LEAS - noninvasive lower extremity arterial studies were ordered and reviewed - there is noted to be moderate vascular disease left foot. Dr. Moya, vascular surgeon, reccomends watching wound and if progress is not seen will consider intervention in next week or two. Podiatry will continue to follow. DC planning. Please call if questions. To [facility] with Dr. Parson after discharge in one week.
--- NOTE | 2020-08-23 09:53 | MDS.RN ---
Information for the mds was obtained from review of the clinical record, interview of resident, staff, and direct observation of resident's care.
[2020-08-23 10:50] LABS: Bedside Glucose 211 mg/dL (70-110)
[2020-08-23 15:05] VITALS: BP 112/67; PULSE 77; RESP 20; TEMP 36.1; O2SAT 99
--- NOTE | 2020-08-23 16:22 | CASEMGMT ---
Social Work Spoke with pt about requests to DC. IDT agreeable for DC home 08/25. Offered HHC and OP therapy, pt denied. Pt denied any DME needs. Dtr to transport pt. Plan: DC home 08/25 with no needs Patt Friedman, OBSTETRIC ANAESTHETIST CD[employer] TEACHER
--- NOTE | 2020-08-23 16:44 | PCM.DC ---
- Discharge Diagnoses Current Active Problems: Current Active and Chronic Problems Diabetes (Chronic) CAD (coronary artery disease) (Chronic) HTN (hypertension) (Chronic) HLD (hyperlipidemia) (Chronic) BPH (benign prostatic hyperplasia) (Chronic) Debility (Acute) Ulcer of left foot due to type 2 diabetes mellitus (Acute) Cellulitis of left foot (Acute) Osteomyelitis of left foot (Acute) Gout (Chronic) Overactive bladder (Chronic) Peripheral arterial occlusive disease (Chronic) Diabetic polyneuropathy (Chronic) Body mass index 32.0-32.9, adult (Chronic) Tobacco abuse (Chronic) You will use the following diet at home:: No restrictions, Regular Your food should be the consistency of: Regular Your liquids should be the consistency of: Regular/Thin Discharge Activity: Return to Normal Activity, May Shower, Use Walker Weight Bearing Status: No weight bearing Keep extremity elevated above heart level: Left Leg Call your doctor if you observe: Fever of 101 or Higher, Inability to urinate, Inability to have a bowel movement, Shortness of breath, Chest pain, Uncontrolled pain Allergies/Adverse Reactions: Allergies cetirizine [From Zyrtec] Allergy (Severe, Verified 08/09/20 15:49) Swollen lymph glands gabapentin Allergy (Severe, Verified 08/09/20 15:49) Swollen lymph glands pregabalin [From Lyrica] Adverse Reaction (Verified 08/10/20 12:04) Other Medications to take at Discharge Allopurinol 100 mg PO DAILY 08/09/20 Aspirin 81 mg PO DAILY 08/09/20 Atorvastatin Calcium 80 mg PO DAILY 08/09/20 Carvedilol [Coreg (Beta Malissa)] 6.25 mg PO BID 08/09/20 Clopidogrel Bisulfate [Clopidogrel] 75 mg PO DAILY 08/09/20 Losartan Potassium 100 mg PO DAILY 08/09/20 Tolterodine Tartrate [Tolterodine Tartrate ER] 4 mg PO DAILY 08/09/20 metFORMIN HCl [Glucophage] 850 mg PO DAILY 08/09/20 Amlodipine [Norvasc] 10 mg PO DAILY 08/12/20 Acetaminophen [Tylenol] 1,000 mg PO Q6H PRN PRN tablet 08/23/20 Doxycycline 100 mg PO BID #18 cap 08/23/20 Duloxetine Hcl [Cymbalta] 30 mg PO DAILY #30 cap 08/23/20 Losartan Potassium [Cozaar] 100 mg PO DAILY #30 tab 08/23/20 Menthol/Lanolin/Calamine/Znox [Calmoseptine Ointment] 1 applic TOPICAL 0600,2200 tube 08/23/20 Nystatin Powder [Mycostatin Powder] 1 applic TOPICAL BID bottle 08/23/20 The following prescriptions were given: Losartan Potassium [Cozaar] 100 mg PO DAILY #30 tab Transmission Status: Pending to [id number] Duloxetine Hcl [Cymbalta] 30 mg PO DAILY #30 cap Transmission Status: Pending to [id number] Doxycycline 100 mg PO BID #18 cap Transmission Status: Pending to [id number] Primary Care Physician: Alcon Hodge MD [Primary Care Provider] - Please follow up with your Primary Care Physician in: 1 week. Test Results: Test results from this visit will be discussed in further detail at your follow-up appointment, if applicable. Please Follow Up With: Sheldon Moya MD When: [phone] Please Follow Up With: Dio Parson DPM When: 1 week. Proposed Discharge Date: 08/25/20
[2020-08-23 16:45] LABS: Bedside Glucose 155 mg/dL (70-110)
--- NOTE | 2020-08-23 16:46 | PCM.DC.SUM ---
Discharge Date and Diagnosis - Problem List Patient Problems: Active and Suspected Problems Debility (Acute) Ulcer of left foot due to type 2 diabetes mellitus (Acute) Cellulitis of left foot (Acute) Osteomyelitis of left foot (Acute) Date of Admission: 08/12/20 Date of Discharge: 08/25/20 - Primary Discharge Diagnosis Acute Problems: Active Problems Debility (Acute) Ulcer of left foot due to type 2 diabetes mellitus (Acute) Cellulitis of left foot (Acute) Osteomyelitis of left foot (Acute) - Secondary Discharge Diagnosis Chronic Problems: Chronic Problems Diabetes (Chronic) Peripheral neuropathy (Chronic) CAD (coronary artery disease) (Chronic) Obesity (Chronic) HTN (hypertension) (Chronic) HLD (hyperlipidemia) (Chronic) BPH (benign prostatic hyperplasia) (Chronic) Gout (Chronic) Overactive bladder (Chronic) Peripheral arterial occlusive disease (Chronic) Diabetic polyneuropathy (Chronic) Body mass index 32.0-32.9, adult (Chronic) Tobacco abuse (Chronic) Hospital Course and Treatment Imaging Results: 08/12/20 20:02 Diet: Cardiac: Calorie-Controlled Type of Dietary Supplement:: Alex Is pt able to select menu?: Yes Diet Comments: alex twice day How many daily calories?: 1800 calorie Labs (Last 48 Hours) 08/21/20 08/22/20 08/22/20 21:08 06:11 10:52 POC Glucose 213 H 186 H 232 H 08/22/20 08/22/20 08/23/20 16:34 21:12 06:08 POC Glucose 188 H 222 H 161 H 08/23/20 08/23/20 10:46 16:41 POC Glucose 211 H 155 H Consultations 08/12/20 20:03 Consult: Onc/Wound/old testament professor Routine Comment: Reason for Consult:: left foot wound Operations: None Procedures: None Summary of Care Provided: The patient is a 80 year old Male with below past medical history hospitalized for left foot osteomyelitis, underwent left foot ulcer debridement, excision left 5th metatarsal head 08/10/2020, admitted to [facility]CU with debility, here for rehabilitation, strengthening, wound care, prior to discharge home with daughter. Discharge home with daughter, no needs. Patient Problems: Active and Suspected Problems Debility (Acute) Ulcer of left foot due to type 2 diabetes mellitus (Acute) Cellulitis of left foot (Acute) Osteomyelitis of left foot (Acute) - Physical Exam Vitals/I&O's: Vital Signs Temp Pulse Resp BP Pulse Ox 96.9 F L 77 20 H 112/67 99 08/23/20 15:05 08/23/20 15:05 08/23/20 15:05 08/23/20 15:05 08/23/20 15:05 Oxygen Delivery Method Room Air Weight: 100.924 kg Body Mass Index (BMI) 32.5 Intake and Output for Last 24 Hours 08/21/20 08/22/20 08/23/20 23:59 23:59 23:59 Intake Total 1520 / 1520 1780 / 1780 840 / 840 Output Total 400 / 400 200 / 200 Balance 1520 / 1520 1380 / 1380 640 / 640 Laboratory Results 08/22/20 21:12: POC Glucose 222 H 08/23/20 06:08: POC Glucose 161 H 08/23/20 10:46: POC Glucose 211 H 08/23/20 16:41: POC Glucose 155 H Current Medications Acetaminophen (Acetaminophen 500 Mg Tablet) 1,000 mg PO Q6H PRN PRN PRN Reason: Pain Score 1-10 [facility] Mg [facility]: 08/23/20 08:21 Dose: 100 mg Documented by: Amlodipine Besylate (Amlodipine 10 Mg Tablet) 10 mg PO DAILY [facility] Last Admin: 08/23/20 05:34 Dose: 10 mg Documented by: Aspirin (Aspirin 81 Mg Tab.Chew) [facility]: 08/23/20 08:20 Dose: 81 mg Documented by: Atorvastatin Calcium (Atorvastatin Calcium 80 Mg Tablet) 80 mg PO QHS [facility] Last Admin: 08/22/20 20:46 Dose: 80 mg Documented by: Calamine/Phenol (Menthol/Lanolin/Calamine/Znox 113 Gm Tube) 1 applic TOPICAL 0600,2200 [facility]; Protocol Last Admin: 08/23/20 05:33 Dose: 1 applicatio Documented by: Carvedilol (Carvedilol 6.25 Mg Tablet) 6.25 mg PO BID [facility] Last Admin: 08/23/20 05:34 Dose: 6.25 mg Documented by: Clopidogrel Bisulfate (Clopidogrel Bisulfate 75 Mg Tablet) 75 mg PO DAILY [facility] Last Admin: 08/23/20 05:34 Dose: 75 mg Documented by: Doxycycline Monohydrate (Doxycycline 100 Mg Capsule) 100 mg PO BID@1000,2200 [facility] Stop: 09/21/20 23:59 Last Admin: 08/23/20 09:07 Dose: 100 mg Documented by: Duloxetine HCl (Duloxetine Hcl 30 Mg Capsule) 30 mg PO DAILY [facility] Last Admin: 08/23/20 05:34 Dose: 30 mg Documented by: Insulin Glargine (Insulin Glargine 100 Units/Ml Pen) 10 units SC QHS [facility] Last Admin: 08/22/20 21:44 Dose: 10 u Documented by: Losartan Potassium (Losartan Potassium 100 Mg Tablet) 100 mg PO DAILY [facility] Last Admin: 08/23/20 05:34 Dose: 100 mg Documented by: Metformin HCl (Metformin Hcl 850 Mg Tablet) 850 mg PO DAILY@0800 [facility] Last Admin: 08/23/20 08:20 Dose: 850 mg Documented by: Nystatin (Nystatin Powder 15gm Bottle) 1 applic TOPICAL BID [facility]; Protocol Last Admin: 08/23/20 05:35 Dose: 1 applicatio Documented by: Polyethylene Glycol (Polyethylene Glycol 3350 17 Gm Packet) 17 gm PO DAILY [facility] Last Admin: 08/23/20 05:34 Dose: 17 gm Documented by: Povidone Iodine (Povidone-Iodine Swabstick) 1 packet TOPICAL 1000 [facility]; Protocol Last Admin: 08/23/20 09:35 Dose: 1 packet Documented by: Senna/Docusate Sodium (Senna/Docusate Sodium 1 Tablet) 2 tablet PO BID PRN PRN PRN Reason: Constipation Tolterodine Tartrate (Tolterodine Tartrate 4 Mg Cap.Sa) 4 mg PO DAILY [facility] Last Admin: 08/23/20 05:34 Dose: 4 mg Documented by: Discharge Diet: No Restrictions Discharge Activity: Return to Normal Activity, May Shower, Use Walker Weight Bearing Status: No weight bearing Keep extremity elevated above heart level: Left Leg Call your doctor if you observe: Fever of 101 or Higher, Inability to urinate, Inability to have a bowel movement, Shortness of breath, Chest pain, Uncontrolled pain Home Medications: Medications to take at Discharge Allopurinol 100 mg PO DAILY 08/09/20 Aspirin 81 mg PO DAILY 08/09/20 Atorvastatin Calcium 80 mg PO DAILY 08/09/20 Carvedilol [Coreg (Beta Malissa)] 6.25 mg PO BID 08/09/20 Clopidogrel Bisulfate [Clopidogrel] 75 mg PO DAILY 08/09/20 Losartan Potassium 100 mg PO DAILY 08/09/20 Tolterodine Tartrate [Tolterodine Tartrate ER] 4 mg PO DAILY 08/09/20 metFORMIN HCl [Glucophage] 850 mg PO DAILY 08/09/20 Amlodipine [Norvasc] 10 mg PO DAILY 08/12/20 Acetaminophen [Tylenol] 1,000 mg PO Q6H PRN PRN tablet 08/23/20 Doxycycline 100 mg PO BID #18 cap 08/23/20 Duloxetine Hcl [Cymbalta] 30 mg PO DAILY #30 cap 08/23/20 Losartan Potassium [Cozaar] 100 mg PO DAILY #30 tab 08/23/20 Menthol/Lanolin/Calamine/Znox [Calmoseptine Ointment] 1 applic TOPICAL 0600,2200 tube 08/23/20 Nystatin Powder [Mycostatin Powder] 1 applic TOPICAL BID bottle 08/23/20 Following Prescriptions Were Given to Patient: Losartan Potassium [Cozaar] 100 mg PO DAILY #30 tab Transmission Status: Pending to [id number] Duloxetine Hcl [Cymbalta] 30 mg PO DAILY #30 cap Transmission Status: Pending to [id number] Doxycycline 100 mg PO BID #18 cap Transmission Status: Pending to [id number] Primary Care Physician: Alcon Hodge MD [Primary Care Provider] - Please follow up with your Primary Care Physician in: 1 week. Please Follow Up With: Sheldon Moya MD When: [phone] Please Follow Up With: Dio Parson DPM When: 1 week. Disposition: Home Minutes spent on discharge:: 30 Patient Condition:: Stable Medical Necessity - Tobacco Use Tobacco Use: Cigarettes Meaningful Use Info Meaningful Use Diagnoses (Choose all that apply): None applicable
[2020-08-23 21:21] LABS: Bedside Glucose 253 mg/dL (70-110)
[2020-08-23] MEDS: Atorvastatin Calcium 80 MG Tablet PO (21:47)
[2020-08-23 21:50] VITALS: PULSE 79; RESP 16; O2SAT 98
[2020-08-24 01:43] VITALS: BP 108/62; PULSE 79; RESP 16; TEMP 36.5; O2SAT 98
[2020-08-24 06:15] LABS: Bedside Glucose 155 mg/dL (70-110)
[2020-08-24] MEDS: DULoxetine Hcl 30 MG Capsule PO (06:15)
[2020-08-24] MEDS: Carvedilol 6.25 MG Tablet PO ×2 (06:15→17:21)
[2020-08-24] MEDS: Nystatin Powder 15gm Bottle 1 APPLIC TOPICAL ×2 (06:15→17:21)
[2020-08-24] MEDS: Polyethylene Glycol 3350 17 GM PACKET PO (06:15)
[2020-08-24] MEDS: amLODIPine 10 MG Tablet PO (06:15)
[2020-08-24] MEDS: Tolterodine Tartrate 4 MG CAP.SA PO (06:15)
[2020-08-24] MEDS: Clopidogrel Bisulfate 75 MG Tablet PO (06:15)
[2020-08-24] MEDS: Losartan Potassium 100 MG Tablet PO (06:15)
[2020-08-24] MEDS: Menthol/Lanolin/Calamine/Znox 113 GM Tube 1 APPLIC TOPICAL ×2 (06:16→21:18)
[2020-08-24] MEDS: Aspirin 81 MG TAB.CHEW PO (07:55)
[2020-08-24] MEDS: metFORMIN HCl 850 MG Tablet PO (07:55)
[2020-08-24] MEDS: Allopurinol 100 MG Tablet PO (07:55)
[2020-08-24] MEDS: Povidone-Iodine Swabstick 1 PACKET TOPICAL (09:00)
[2020-08-24] MEDS: Doxycycline 100 MG CAPSULE PO ×2 (09:02→21:25)
[2020-08-24 11:06] LABS: Bedside Glucose 199 mg/dL (70-110)
[2020-08-24 14:53] VITALS: BP 112/60; PULSE 62; RESP 16; TEMP 36.3; O2SAT 95
[2020-08-24 16:50] LABS: Bedside Glucose 164 mg/dL (70-110)
[2020-08-24] MEDS: Atorvastatin Calcium 80 MG Tablet PO (21:17)
[2020-08-24 21:31] LABS: Bedside Glucose 239 mg/dL (70-110)
[2020-08-25 02:12] VITALS: BP 125/63; PULSE 75; RESP 16; TEMP 36.7; O2SAT 97
[2020-08-25 06:26] LABS: Bedside Glucose 180 mg/dL (70-110)
[2020-08-25] MEDS: Carvedilol 6.25 MG Tablet PO (06:27)
[2020-08-25] MEDS: DULoxetine Hcl 30 MG Capsule PO (06:27)
[2020-08-25] MEDS: Clopidogrel Bisulfate 75 MG Tablet PO (06:27)
[2020-08-25] MEDS: Tolterodine Tartrate 4 MG CAP.SA PO (06:27)
[2020-08-25] MEDS: Losartan Potassium 100 MG Tablet PO (06:27)
[2020-08-25] MEDS: amLODIPine 10 MG Tablet PO (06:27)
[2020-08-25] MEDS: Nystatin Powder 15gm Bottle 1 APPLIC TOPICAL (06:28)
[2020-08-25] MEDS: Menthol/Lanolin/Calamine/Znox 113 GM Tube 1 APPLIC TOPICAL (06:28)
[2020-08-25 06:35] VITALS: PULSE 77; RESP 16; O2SAT 97
[2020-08-25] MEDS: Povidone-Iodine Swabstick 1 PACKET TOPICAL (08:37)
[2020-08-25] MEDS: Allopurinol 100 MG Tablet PO (08:38)
[2020-08-25] MEDS: metFORMIN HCl 850 MG Tablet PO (08:38)
[2020-08-25] MEDS: Aspirin 81 MG TAB.CHEW PO (08:38)
[2020-08-25 08:40] VITALS: BP 120/63; PULSE 65; RESP 18; TEMP 36.4; O2SAT 99
[2020-08-25] MEDS: Doxycycline 100 MG CAPSULE PO (08:50)
[2020-08-25 10:50] LABS: Bedside Glucose 212 mg/dL (70-110)
== END 2020-08-25 11:00 | disposition home or self-care (01) | DRG 560 ==
PROVIDERS: Admitting Provider Family Medicine Geriatric Medicine; PCP Internal Medicine Pulmonary Disease; Visit Provider Family Medicine Geriatric Medicine
DX: Z47.81 Encounter for orthopedic aftercare following surgical amputation (principal); M86.172 Other acute osteomyelitis, left ankle and foot; L03.116 Cellulitis of left lower limb; Z89.422 Acquired absence of other left toe(s); E11.69 Type 2 diabetes mellitus with other specified complication; E11.51 Type 2 diabetes mellitus with diabetic peripheral angiopathy without gangrene; I25.10 Atherosclerotic heart disease of native coronary artery without angina pectoris; E78.5 Hyperlipidemia, unspecified; I10 Essential (primary) hypertension; E11.42 Type 2 diabetes mellitus with diabetic polyneuropathy; L97.529 Non-pressure chronic ulcer of other part of left foot with unspecified severity; E11.621 Type 2 diabetes mellitus with foot ulcer; N40.0 Benign prostatic hyperplasia without lower urinary tract symptoms; B95.61 Methicillin susceptible Staphylococcus aureus infection as the cause of diseases classified elsewhere; M1A.9XX0 Chronic gout, unspecified, without tophus (tophi); E66.9 Obesity, unspecified; Z68.32 Body mass index [BMI] 32.0-32.9, adult; F17.210 Nicotine dependence, cigarettes, uncomplicated; N32.81 Overactive bladder
CPT/HCPCS: 36415; 80048; 82962; 85025; 87426; 87635; 97110; 97116; 97162; 97165; 97530; 97535; 97802; U0005; U0003

== ENCOUNTER → 2020-09-01 09:31 | Outpatient (CLI) | payer MEDICARE, BC, SELFPAY ==
[2020-08-12 19:54] VITALS: BMI 32.5
[2020-09-01 10:04] LABS: Absolute Lymphocyte Count 2.01 X10^3/uL (0.83-4.51); Absolute Neutrophil Count 4.3 X10^3/uL (2.0-7.7); Basophil# 0.05 X10^3/uL; Basophil% 0.7 % (0-1); Eosinophil# 0.56 X10^3/uL; Eosinophils% 7.3 % (0-5); Hematocrit 41.2 % (40-54); Hemoglobin 13.2 g/dL (13.0-16.5); Lymphocyte # 2.01 X10^3/ul (4.0); Lymphocyte % 26.3 % (19-41); Mean Corpuscular Hgb 28.8 pg (27.0-32.0); Mean Corpuscular Volume 89.8 fL (80-94); Mean Platelet Vol. 10.8 fl (6.2-12.0); Monocyte# 0.68 X10^3/uL; Monocyte% 8.9 % (0-10); NRBC Flagged by Analyzer 0 % (0-5); Neutrophil # 4.31 X10^3/uL (2.7-7.7); Neutrophil % 56.4 % (47-70); Platelet Count 247 K/mm3 (150-450); RBC Distribution Width CV 13.9 % (11.6-14.6); RBC Distribution Width SD 45.7 fl (35.1-43.9); Red Blood Count 4.59 M/mm3 (4.6-6.2); White Blood Count 7.6 K/mm3 (4.4-11.0)
[2020-09-01 10:06] LABS: Erythrocyte Sedimentation Rate 12 mm/hr (0-20)
[2020-09-01 10:44] LABS: ALB/GLOB Ratio 0.7 RATIO (0.9-2.4); AST(SGOT) 20 U/L (15-37); Alanine Aminotransfer ALT/SGPT 20 U/L (16-61); Albumin, Serum 3.1 g/dL (3.2-5.0); Alkaline Phosphatase 138 U/L (45-117); Anion Gap 7 (5-15); BUN 30 mg/dL (7-18); CRP 6.55 mg/L (0.0-3.0); Calcium,Total 8.9 mg/dL (8.5-10.1); Chloride 110 mmol/L (98-107); Creatinine, Serum 1.25 mg/dL (0.70-1.30); EST Glomerular Filtration Rate 59 mL/min (>60); Est Glom Filt Rate - Afr Amer 71 mL/min (>60); Globulin 4.6 g/dL (2.2-4.2); Glucose 142 mg/dL (74-106); Potassium 4.4 mmol/L (3.5-5.1); Protein, Total 7.7 g/dL (6.4-8.2); Sodium Level 142 mmol/L (136-145)
== END ==
PROVIDERS: PCP Internal Medicine Pulmonary Disease; Referring Provider Podiatrist; Visit Provider Podiatrist
DX: L97.522 Non-pressure chronic ulcer of other part of left foot with fat layer exposed (principal); L03.116 Cellulitis of left lower limb
CPT/HCPCS: 36415; 80053; 85025; 85652; 86140

== ENCOUNTER → 2020-09-14 09:03 | Outpatient (CLI) | payer MEDICARE, BC, SELFPAY ==
[2020-09-14 09:38] LABS: Absolute Lymphocyte Count 1.84 X10^3/uL (0.83-4.51); Absolute Neutrophil Count 4.4 X10^3/uL (2.0-7.7); Basophil# 0.08 X10^3/uL; Basophil% 1.1 % (0-1); Eosinophil# 0.55 X10^3/uL; Eosinophils% 7.3 % (0-5); Hematocrit 42.3 % (40-54); Hemoglobin 13.6 g/dL (13.0-16.5); Lymphocyte # 1.84 X10^3/ul (4.0); Lymphocyte % 24.5 % (19-41); Mean Corp Hgb Conc 32.2 g/dL (32-36); Mean Corpuscular Hgb 29.2 pg (27.0-32.0); Mean Platelet Vol. 10.9 fl (6.2-12.0); Monocyte# 0.64 X10^3/uL; Monocyte% 8.5 % (0-10); NRBC Flagged by Analyzer 0 % (0-5); Neutrophil # 4.35 X10^3/uL (2.7-7.7); Neutrophil % 58.1 % (47-70); Platelet Count 185 K/mm3 (150-450); RBC Distribution Width CV 14.7 % (11.6-14.6); RBC Distribution Width SD 48.6 fl (35.1-43.9); Red Blood Count 4.65 M/mm3 (4.6-6.2); White Blood Count 7.5 K/mm3 (4.4-11.0)
[2020-09-14 09:40] LABS: Erythrocyte Sedimentation Rate 15 mm/hr (0-20)
[2020-09-14 09:51] LABS: AST(SGOT) 13 U/L (15-37); Alanine Aminotransfer ALT/SGPT 14 U/L (16-61); Albumin, Serum 3.1 g/dL (3.2-5.0); Anion Gap 8 (5-15); BUN 30 mg/dL (7-18); BUN/Creat Ratio 26.8 RATIO (10-20); Calcium,Total 8.6 mg/dL (8.5-10.1); Chloride 110 mmol/L (98-107); Creatinine, Serum 1.12 mg/dL (0.70-1.30); EST Glomerular Filtration Rate 67 mL/min (>60); Est Glom Filt Rate - Afr Amer 81 mL/min (>60); Glucose 145 mg/dL (74-106); Potassium 3.9 mmol/L (3.5-5.1); Sodium Level 143 mmol/L (136-145)
== END ==
PROVIDERS: PCP Internal Medicine Pulmonary Disease; Referring Provider Podiatrist; Visit Provider Podiatrist
DX: M86.8X7 Other osteomyelitis, ankle and foot (principal)
CPT/HCPCS: 36415; 80048; 82040; 84450; 84460; 85025; 85652